=== PATIENT | male | born 1930 | race Caucasian/White ===

== ENCOUNTER 2016-12-30 12:39 | Inpatient (IN) ==
[2016-12-30] MEDS ORDERED: 0.9 % Sodium Chloride 500 ML IVC ONE (12:50)
--- NOTE | 2016-12-30 12:56 | Emergency Department Note ---
Disposition Clinical Impression: Community acquired pneumonia, ROBERT (acute kidney injury) Disposition: Admitted As Inpatient Condition: Fair Time of Disposition: 17:05 SOB HPI - General Chief Complaint: ED Shortness of Breath/Dyspnea Stated Complaint: shortness of breath Time Seen by Provider: 12/30/16 12:40 Source: patient, EMS Mode of arrival: EMS Limitations: no limitations Nursing Notes Reviewed: Yes Vital Signs Reviewed: Yes - History of Present Illness Patient presents to the ED with chief complaint shortness of breath. Patient states that he has been feeling short of breath over the last week. States that its worse whenever he is up and moving around. Feels like he cannot get a deep breath in. Has a remote history of lung cancer and is status post chemotherapy for the last year and a half. He states that he has felt hot like he has a low-grade fever. He has been coughing some but no productive cough. No chest pain. No other headaches, abdominal pain, nausea, vomiting, diarrhea, pain in his legs. He is unsure if he has COPD or not. Does state that he had a heart attack previously and this feels differently. No history of DVT or PE. - Related Data Home Medications Medication Instructions Recorded Confirmed Aspirin [Adult Low Dose Aspirin EC] 81 mg PO DAILY 09/22/15 12/30/16 Atenolol [Tenormin] 50 mg PO DAILY 09/22/15 12/30/16 Atorvastatin [Lipitor] 40 mg PO DAILY 09/22/15 12/30/16 Budesonide/Formoterol 80/4.5 2 puff IH BIDR 09/22/15 12/30/16 [Symbicort 80/4.5] Finasteride [Proscar] 5 mg PO DAILY 09/22/15 12/30/16 Folic Acid 1 mg PO DAILY 09/22/15 12/30/16 Losartan Potassium [Cozaar] 50 mg PO DAILY 09/22/15 12/30/16 Methotrexate [Otrexup] 6 tab PO QWEEK 09/22/15 12/30/16 Multivit-Min/FA/Vit K/Lycopene [Hm 1 each PO DAILY 09/22/15 12/30/16 Mens 50+ Advanced One Daily] PredniSONE 10 mg PO DAILY 09/22/15 12/30/16 Tamsulosin [Flomax] 0.4 mg PO DAILY 09/22/15 12/30/16 Calcium Carbonate/Vitamin D3 1 tab PO DAILY 12/30/16 12/30/16 [Calcium 500-Vit D3 600 Tablet] Cyanocobalamin (Vitamin B-12) 1,000 mcg PO DAILY 12/30/16 12/30/16 [Vitamin B12] Oxygen 3 l .ROUTE AD 12/30/16 12/30/16 Pregabalin [Lyrica] 50 mg PO BID 12/30/16 12/30/16 Previous Rx's Medication Instructions Recorded Acetaminophen [Tylenol] 650 mg PO Q6HR PRN #20 tablet 11/25/16 Allergies Allergy/AdvReac Type Severity Reaction Status Date / Time celecoxib [From Celebrex] Allergy Unknown See Verified 09/06/15 15:59 Comments Latex, Natural Rubber Allergy Unknown See Verified 09/06/15 15:59 Comments rofecoxib [From Vioxx] Allergy Unknown See Verified 09/06/15 15:59 Comments Sulfa (Sulfonamide Allergy Unknown Unknown Verified 09/22/15 15:11 Antibiotics) All systems ED: reviewed and negative except as stated. (somewhat limited) Constitutional: Reports: fever (subjective ) Cardiovascular: Reports: dyspnea on exertion, edema Respiratory: Reports: cough, dyspnea Past Medical History - Past Medical History Attestation: Yes The following information was validated with the patient. Source: patient Medical history: Reports: cancer, COPD, hypertension, other - Social History Smoking Status: Unknown if ever smoked Smokeless Tobacco Status: No Alcohol use: Reports: none Physical Exam - General Limitations: no limitations General appearance: alert, in no apparent distress - Head Head exam: atraumatic, normocephalic, normal inspection - Eye Eye exam: Present: normal appearance, PERRL, EOMI - ENT ENT exam: normal exam, normal oropharynx, mucous membranes moist - Neck Neck exam: Present: normal inspection, full ROM, trachea midline - Chest Chest inspection: Present: normal inspection, symmetric chest wall rise - Respiratory Respiratory exam: Present: other (Decreased breath sounds, although clear. No rales or rhonchi). Absent: normal lung sounds bilaterally, respiratory distress (Patient was hypoxic upon arrival with oxygen saturation of 88%) - Cardiovascular Cardiovascular exam: Present: regular rate, normal rhythm, normal heart sounds - Abdominal Exam Abdominal exam: Present: soft, Non-Tender. Absent: tenderness, distention, guarding, rebound, rigidity - Extremities Exam Extremities exam: Present: normal inspection, full ROM, pedal edema (2+ pitting bilaterally). Absent: tenderness - Neurological Exam Neurological exam: Present: alert, oriented X3 - Psychiatric Psychiatric exam: Present: normal affect, normal mood - Skin Skin exam: Present: warm, dry, intact, normal color Course Course Narrative: 86 -year-old male presenting with shortness of breath. Over the last week, but gradually increasing. States he feels like he cannot get a deep breath in. Not having any chest pain. Remote history of lung cancer, but is no longer receiving treatment for the last year and a half. - Reevaluation(s) Reevaluation #1: Claudia ZAIDI is back and shows he does potentially have pneumonia which is consistent with his clinical diagnosis. We were just informed that we did receive report prior to the patient being transported here that he had a fever prior to arrival. With this new information, we will draw a lactate level. I do not think that the patient would meet sepsis criteria as he is in no acute distress. However, we will order this, per protocol. Time: 16:11 Vital Signs Temperature 99.5 F 12/30/16 12:41 Pulse Rate 89 12/30/16 12:41 Respiratory Rate 20 12/30/16 12:41 Blood Pressure 111/81 12/30/16 12:41 O2 Sat by Pulse Oximetry 93 12/30/16 12:41 Temperature 99.5 F 12/30/16 12:41 Pulse Rate 74 12/30/16 17:02 Respiratory Rate 18 12/30/16 17:02 Blood Pressure 107/55 12/30/16 17:02 O2 Sat by Pulse Oximetry 95 12/30/16 17:02 Oxygen Delivery Oxygen Delivery Nasal Cannula Shortness of Breath/Dyspnea - Medical Records Medical records reviewed: Yes I reviewed the patient's medical records. - Lab Data Lab results reviewed: Yes I reviewed the patient's lab results. Result diagrams: 12/30/16 13:49 12/30/16 13:49 Lab Results 12/30/16 12/30/16 12/30/16 Range/Units 13:49 13:49 13:49 WBC 7.2 (4.3-11.1) K/mcL RBC 4.03 L (4.19-5.50) M/mcL Hgb 13.4 (12.9-16.9) g/dL Hct 41.4 (37.5-50.1) % MCV 102.7 H (83.0-100.0) fL MCH 33.3 (28.0-33.3) pg MCHC 32.4 (31.6-35.5) g/dL RDW 14.7 H (11.5-14.5) % Plt Count 100 L (140-400) K/mcL MPV 9.8 (9.4-12.4) fL Seg Neutrophils % 72.0 % Band Neutrophils % 18.0 H (0-4) % Lymphocytes % 8.0 % Monocytes % 2.0 % Neutrophils # 6.5 (1.6-8.9) K/mcL Lymphocytes # 0.6 (0.6-4.6) K/mcL Monocytes # 0.1 (0.0-1.3) K/mcL Platelet Estimate Normal (Normal) Immature Plt Fraction 2.9 (1.1-6.1) % Macrocytosis Present A (Not Present) PT 11.7 (9.4-12.1) Seconds INR 1.1 APTT 25.4 L (26.0-36.0) Seconds D-Dimer 2279 H (0-500) ng/mLFEU Sodium (136-145) mEq/L Potassium (3.5-4.5) mEq/L Chloride (98-109) mEq/L Carbon Dioxide (19-29) mEq/L BUN (8-26) mg/dL Creatinine (0.72-1.25) mg/dL Est GFR ( Amer) (> 60) Est GFR (Non-Af Amer) (> 60) BUN/Creatinine Ratio (6-26) Glucose (70-99) mg/dL Calculated Osmolality (280-300) Lactic Acid (0.5-2.2) mmol/L Calcium (8.6-10.8) mg/dL Troponin I (0-0.03) ng/mL B-Natriuretic Peptide (0-100) pg/mL 12/30/16 12/30/16 12/30/16 Range/Units 13:49 13:49 13:49 WBC (4.3-11.1) K/mcL RBC (4.19-5.50) M/mcL Hgb (12.9-16.9) g/dL Hct (37.5-50.1) % MCV (83.0-100.0) fL MCH (28.0-33.3) pg MCHC (31.6-35.5) g/dL RDW (11.5-14.5) % Plt Count (140-400) K/mcL MPV (9.4-12.4) fL Seg Neutrophils % % Band Neutrophils % (0-4) % Lymphocytes % % Monocytes % % Neutrophils # (1.6-8.9) K/mcL Lymphocytes # (0.6-4.6) K/mcL Monocytes # (0.0-1.3) K/mcL Platelet Estimate (Normal) Immature Plt Fraction (1.1-6.1) % Macrocytosis (Not Present) PT (9.4-12.1) Seconds INR APTT (26.0-36.0) Seconds D-Dimer (0-500) ng/mLFEU Sodium 140 (136-145) mEq/L Potassium 5.0 H (3.5-4.5) mEq/L Chloride 109 (98-109) mEq/L Carbon Dioxide 24 (19-29) mEq/L BUN 36 H (8-26) mg/dL Creatinine 1.28 H (0.72-1.25) mg/dL Est GFR ( Amer) > 60 (> 60) Est GFR (Non-Af Amer) 53 L (> 60) BUN/Creatinine Ratio 28 H (6-26) Glucose 115 H (70-99) mg/dL Calculated Osmolality 299 (280-300) Lactic Acid (0.5-2.2) mmol/L Calcium 8.6 (8.6-10.8) mg/dL Troponin I 0.03 (0-0.03) ng/mL B-Natriuretic Peptide 231 H (0-100) pg/mL 12/30/16 Range/Units 16:58 WBC (4.3-11.1) K/mcL RBC (4.19-5.50) M/mcL Hgb (12.9-16.9) g/dL Hct (37.5-50.1) % MCV (83.0-100.0) fL MCH (28.0-33.3) pg MCHC (31.6-35.5) g/dL RDW (11.5-14.5) % Plt Count (140-400) K/mcL MPV (9.4-12.4) fL Seg Neutrophils % % Band Neutrophils % (0-4) % Lymphocytes % % Monocytes % % Neutrophils # (1.6-8.9) K/mcL Lymphocytes # (0.6-4.6) K/mcL Monocytes # (0.0-1.3) K/mcL Platelet Estimate (Normal) Immature Plt Fraction (1.1-6.1) % Macrocytosis (Not Present) PT (9.4-12.1) Seconds INR APTT (26.0-36.0) Seconds D-Dimer (0-500) ng/mLFEU Sodium (136-145) mEq/L Potassium (3.5-4.5) mEq/L Chloride (98-109) mEq/L Carbon Dioxide (19-29) mEq/L BUN (8-26) mg/dL Creatinine (0.72-1.25) mg/dL Est GFR ( Amer) (> 60) Est GFR (Non-Af Amer) (> 60) BUN/Creatinine Ratio (6-26) Glucose (70-99) mg/dL Calculated Osmolality (280-300) Lactic Acid 1.1 (0.5-2.2) mmol/L Calcium (8.6-10.8) mg/dL Troponin I (0-0.03) ng/mL B-Natriuretic Peptide (0-100) pg/mL - Radiology Data Radiology results reviewed: Yes I reviewed the patient's radiology results. - EKG Data EKG attestation: Yes I reviewed and interpreted this EKG. EKG results narrative: Sinus rhythm, rate 86, W[place] interval 160, QRS 92, QTC 372, normal axis, nonspecific changes inferiorly Attestation Statement - Attestation Attestation: Patient was seen with resident physician. I reviewed the history, physical, assessment and plan, and agree with the findings. I also personally evaluated this patient and had [id number] time with this patient. A [id number] male presents to the emergency department with 1 week history of worsening shortness of breath. Patient is on home O2 as needed, states he has COPD and history of lung cancer but is not being consistently treated for either at the moment. States he has had a nonproductive cough which is getting progressively worse for the last week and now he feels just wiped out with decreased energy and difficulty breathing. Denies chest pain. Denies nausea vomiting or diarrhea. On examination vital signs mild temperature heart regular rhythm and rate. Lungs have some crackles throughout. Abdomen soft and nontender. Extremities unremarkable. Neurologically intact. EKG shows no acute ischemic changes. We will do workup for cardiac and pulmonary etiologies. And we will treat accordingly. Patient remained hemodynamically stable through stay in emergency department. Workup revealed pneumonia. Initially chest x-ray was negative, but d-dimer was positive prompting a CT scan of the chest. The CT scan was definitive for pneumonia. Patient was started on Levaquin. Hospitalist was notified as the need for admission and IV antibiotic therapy. Agree with resident physician assessment and plan.
[2016-12-30 14:07] LABS: Mean Corpuscular HGB Conc 32.4 g/dL (31.6-35.5); Mean Corpuscular Hemoglobin 33.3 pg (28.0-33.3); Mean Corpuscular Volume 102.7 fL (83.0-100.0); Red Cell Distribution Width 14.7 % (11.5-14.5)
[2016-12-30 14:08] LABS: Hematocrit 41.4 % (37.5-50.1); Hemoglobin 13.4 g/dL (12.9-16.9); Immature Platelets 2.9 % (1.1-6.1); Mean Platelet Volume 9.8 fL (9.4-12.4); Platelet Count 100 K/mcL (140-400); Red Blood Count 4.03 M/mcL (4.19-5.50)
[2016-12-30 14:13] LABS: INR 1.1; Prothrombin Time 11.7 Seconds (9.4-12.1)
[2016-12-30 14:16] LABS: Activated Partial Thrombo Time 25.4 Seconds (26.0-36.0)
[2016-12-30 14:21] LABS: BUN/Creatinine Ratio 28 (6-26); Blood Urea Nitrogen 36 mg/dL (8-26); Calcium 8.6 mg/dL (8.6-10.8); Carbon Dioxide 24 mEq/L (19-29); Chloride 109 mEq/L (98-109); Glucose 115 mg/dL (70-99); Osmolality,Calculated 299 (280-300); Sodium 140 mEq/L (136-145); eGFR For African Americans > 60 (> 60); eGFR For Non-African Americans 53 (> 60)
[2016-12-30 14:54] LABS: Lymphocytes # 0.6 K/mcL (0.6-4.6); Monocytes # 0.1 K/mcL (0.0-1.3); Neutrophils # 6.5 K/mcL (1.6-8.9)
[2016-12-30 14:55] LABS: Platelet Estimate Normal (Normal)
[2016-12-30 14:56] LABS: Macrocytosis Present (Not Present)
[2016-12-30] MEDS ORDERED: 0.9 % Sodium Chloride 1,000 ML IVC ONE (15:05)
[2016-12-30] MEDS ORDERED: Levofloxacin 750 MG/150 ML 750 MG/150 ML BAG IVPB ONE (16:12)
--- NOTE | 2016-12-30 18:19 | Internal Med History&Physical ---
Date of Encounter: 12/30/16 Time of Encounter: 18:14 Assessment and Plan (1) Community acquired pneumonia Current visit: Yes Status: Acute ct chest shows left LL pneumonia. clinically sob, no productive sputum or fever. recently had pneumonia lab work showed elevated d - dimer, CTA was done , neg for PE. will treat as CAP, start ceftriaxone and azithro. sputum for gram stain and cx. 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 He did not want whole-brain radiation. Completed last dose of carbo Taxol the first week in . Clinically appears stable without recurrence as noted in last oncology note -MRI of the brain, showed resolution of metastatic lesion. 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 (5) Emphysema lung Current visit: Yes Status: Acute We will continue duo nebs every 4 hour when necessary. Continue oxygen at 2 L to maintain saturation above 90%. Will continue the Symbicort and other medications. Currently not in COPD exacerbation. Qualifiers: Emphysema type: unspecified Qualified Code(s): J43.9 - Emphysema, unspecified (6) Rheumatoid arthritis Current visit: Yes Status: Acute he sees DR. smith and is on methotrexate and prednisone. Qualifiers: Rheumatoid arthritis location: hand Rheumatoid factor presence: with rheumatoid factor Laterality: unspecified laterality Qualified Code(s): M05.749 - Rheumatoid arthritis with rheumatoid factor of unspecified hand without organ or systems involvement Internal Medicine - H&P: HPI Chief complaint: sob Admitted From: Home Plans for Post Hospital Care: Home History of present illness: Mr. 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 The patient deferred whole-brain radiation therapy. He underwent treatments with weekly carbo Taxol, which he tolerated well, was then treated with q.3 weekly dosing. He followed with Dr. Avery at the [facility] and is currently in remission. He presented today at ED with complaints of shortness of breath for the last 1 week. He denies any chest pain, no fever at home, reports that he has dry cough. He does have a history of COPD, only on oxygen as required at home. 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 He lives with his , reports that his had pneumonia a week ago and was admitted to [facility] and is currently recovering. He denies any nausea vomiting, abdominal pain or diarrhea. he denies smoking. Past Med Surg Social Fam HX - Past Medical History Medical history: cancer, COPD, hypertension, other - Social History Smoking Status: Former smoker Smokeless Tobacco Status: No Alcohol use: none Drug use: none - Family History Father Cause of : [place] Hx Family Cardiac Disorders: Yes Brother Hx Family Cardiac Disorders: Yes ([place]) Mother Cause of : CVA Internal Medicine - H&P: Meds Aspirin [Adult Low Dose Aspirin EC] 81 mg PO DAILY 09/22/15 [History] Atenolol [Tenormin] 50 mg PO DAILY 09/22/15 [History] Atorvastatin [Lipitor] 40 mg PO DAILY 09/22/15 [History] Budesonide/Formoterol 80/4.5 [Symbicort 80/4.5] 2 puff IH BIDR 09/22/15 [ History] Finasteride [Proscar] 5 mg PO DAILY 09/22/15 [History] Folic Acid 1 mg PO DAILY 09/22/15 [History] Losartan Potassium [Cozaar] 50 mg PO DAILY 09/22/15 [History] Methotrexate [Otrexup] 6 tab PO QWEEK 09/22/15 [History] Multivit-Min/FA/Vit K/Lycopene [Hm Mens 50+ Advanced One Daily] 1 each PO DAILY 09/22/15 [History] PredniSONE 10 mg PO DAILY 09/22/15 [History] Tamsulosin [Flomax] 0.4 mg PO DAILY 09/22/15 [History] Acetaminophen [Tylenol] 650 mg PO Q6HR PRN #20 tablet 11/25/16 [Rx] Calcium Carbonate/Vitamin D3 [Calcium 500-Vit D3 600 Tablet] 1 tab PO DAILY 02/10 [History] Cyanocobalamin (Vitamin B-12) [Vitamin B12] 1,000 mcg PO DAILY 12/30/16 [History ] Oxygen 3 l .ROUTE AD 12/30/16 [History] Pregabalin [Lyrica] 50 mg PO BID 12/30/16 [History] Allergies celecoxib [From Celebrex] Allergy (Unknown, Verified 09/06/15 15:59) See Comments reaction unknown Latex, Natural Rubber Allergy (Unknown, Verified 09/06/15 15:59) See Comments reaction unknown rofecoxib [From Vioxx] Allergy (Unknown, Verified 09/06/15 15:59) See Comments reaction unknown Sulfa (Sulfonamide Antibiotics) Allergy (Unknown, Verified 09/22/15 15:11) Unknown All Systems PM: A 10-system review of systems was performed and is negative for pertinent findings except as documented above in the HPI. - Constitutional Constitutional: no chills, no fever(s), no night sweats - EENT Eyes: no change in vision, no discharge, no pain, no photophobia Ears: no ear discharge, no ear pain, no tinnitus Nose, mouth and throat: no dysphagia, no nasal discharge, no neck pain, no sore throat - Cardiovascular Cardiovascular ROS IM: dyspnea - Respiratory Respiratory: cough, dyspnea - Gastrointestinal Gastrointestinal: no abdominal pain, no diarrhea, no hematemesis, no hematochezia, no melena, no nausea, no vomiting - Musculoskeletal Musculoskeletal ROS IM: no numbness, no tingling - Integumentary Integumentary IM: no rash, no unusual bruising - Neurological Neurological ROS: numbness, paresthesias, no confusion, no convulsions, no focal weakness, no tingling, no tremor(s) - Constitutional Vitals: Temp Pulse Resp BP Pulse Ox 97.4 F L 74 18 103/61 97 12/30/16 17:58 12/30/16 17:58 12/30/16 17:58 12/30/16 17:58 12/30/16 17:58 General appearance: Present: A&O X 3, no acute distress Exam: oral mucosa- moist Neck supple. Chest bilateral clear, no added sounds. CVS S1-S2, no murmurs rubs or gallops. Abdomen soft, nontender, bowel sounds are present. Extremities no edema, dry 3 x 4 wound at the left calf which appears dry and resolvind, non tender. neuro- no focal defecits Internal Med - H&P Results - Labs CBC & Chem 7: 12/30/16 13:49 12/30/16 13:49
[2016-12-30] MEDS ORDERED: Naloxone 0.4 MG/ML INJ IVP PRN (18:30)
[2016-12-30] MEDS: Pregabalin 50 MG CAPSULE PO SCH (22:21)
[2016-12-30] MEDS: Budesonide/Formoterol 80/4.5 MDI IH SCH (23:40)
[2016-12-31 01:33] LABS: Bilirubin,Urine Negative (Negative); Blood,Urine Trace (Negative); Clarity,Urine Clear (Clear); Color,Urine Yellow (Yellow); Glucose,Urine (UA) Normal (Normal); Ketones,Urine Negative (Negative); Leukocyte Esterase,Urine Negative (Negative); Nitrite,Urine Negative (Negative); PH,Urine 5.5 pH Units (5.0-8.0); Protein,Urine 30 mg/dL (Neg-Trace); Specific Gravity,Urine > 1.030 (1.010-1.025); Urobilinogen,Urine Normal (Normal)
[2016-12-31 01:35] LABS: Bacteria,Urine None Seen per hpf (None-Few); Hyaline Casts,Urine None Seen per lpf (None-Few); Squamous Epithelial Cell,Urine Moderate per lpf (None-Few); WBC,Urine 0-3 per hpf (0-3)
[2016-12-31] MEDS: *HR* Heparin 5,000 UNIT/ML VIAL SQ SCH ×2 (05:43→17:18)
[2016-12-31 06:13] LABS: Basophils % 0.5 %; Hemoglobin 13.1 g/dL (12.9-16.9)
[2016-12-31 06:15] LABS: Eosinophils % 0.1 %; Hematocrit 41.3 % (37.5-50.1); Immature Granulocytes % 3.7 % (0-4); Immature Platelets 4.2 % (1.1-6.1); Lymphocytes # 0.7 K/mcL (0.6-4.6); Lymphocytes % 9.2 %; Mean Corpuscular HGB Conc 31.7 g/dL (31.6-35.5); Mean Corpuscular Hemoglobin 32.8 pg (28.0-33.3); Mean Corpuscular Volume 103.5 fL (83.0-100.0); Mean Platelet Volume 9.7 fL (9.4-12.4); Monocytes # 0.6 K/mcL (0.0-1.3); Monocytes % 8.1 %; Neutrophils # 5.9 K/mcL (1.6-8.9); Red Blood Count 3.99 M/mcL (4.19-5.50); Red Cell Distribution Width 14.7 % (11.5-14.5); Segmented Neutrophils % 78.4 %
[2016-12-31 06:17] LABS: Platelet Count 91 K/mcL (140-400)
[2016-12-31 06:21] LABS: BUN/Creatinine Ratio 28 (6-26); Blood Urea Nitrogen 31 mg/dL (8-26); Calcium 8.6 mg/dL (8.6-10.8); Carbon Dioxide 26 mEq/L (19-29); Chloride 108 mEq/L (98-109); Glucose 90 mg/dL (70-99); Osmolality,Calculated 296 (280-300); Potassium 5.1 mEq/L (3.5-4.5); Sodium 140 mEq/L (136-145); eGFR For African Americans > 60 (> 60); eGFR For Non-African Americans > 60 (> 60)
[2016-12-31 06:46] LABS: Platelet Estimate Decreased (Normal); Reactive Lymphocytes Present (Not Present)
[2016-12-31] MEDS: Cholecalciferol (D-3) 1,000 UNIT TABLET PO SCH (09:28)
[2016-12-31] MEDS: Folic Acid 1 MG TABLET PO SCH (09:29)
[2016-12-31] MEDS: Pregabalin 50 MG CAPSULE PO SCH ×2 (09:29→21:11)
[2016-12-31] MEDS: Finasteride 5 MG TABLET PO SCH (09:29)
[2016-12-31] MEDS: Aspirin Enteric Coated 81 MG Tablet PO SCH (09:29)
[2016-12-31] MEDS: predniSONE 10 MG TABLET PO SCH (09:29)
[2016-12-31] MEDS: Budesonide/Formoterol 80/4.5 MDI IH SCH ×2 (10:35→20:46)
--- NOTE | 2016-12-31 12:58 | Internal Med Progress Note ---
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 completed last dose of Carbo Taxol the first week of May 2016 Clinically appears stable without recurrence as noted in last oncology note MRI brain showed resolution of metastatic lesion Qualifiers: Laterality: right Lung location: upper lobe of lung Qualified Code(s): C34.11 - Malignant neoplasm of upper lobe, right bronchus or lung (3) Neuropathy Current Visit: No Status: Chronic Assessment and plan: continue home medications (4) ROBERT (acute kidney injury) Current Visit: Yes Status: Resolved Assessment and plan: Resolved continue to monitor renal function (5) Emphysema lung Current Visit: Yes Status: Chronic Assessment and plan: continue bronchodilator support O2 supplementation Monitor O2 sat continue home meds (symbicort) Qualifiers: Emphysema type: unspecified Qualified Code(s): J43.9 - Emphysema, unspecified (6) Rheumatoid arthritis Current Visit: Yes Status: Acute Assessment and plan: continue home medications Qualifiers: Rheumatoid arthritis location: hand Rheumatoid factor presence: with rheumatoid factor Laterality: unspecified laterality Qualified Code(s): M05.749 - Rheumatoid arthritis with rheumatoid factor of unspecified hand without organ or systems involvement (7) DVT prophylaxis Current Visit: Yes Status: Acute Assessment and plan: Heparin SQ - Subjective Interval history: Patient seen and examined. resting in chair and reports of feeling better compared to the previous day. No discomfort reported at this time. - Constitutional Vitals: Temp Pulse Resp BP Pulse Ox 97.6 F 97 18 108/64 92 12/31/16 11:58 12/31/16 11:58 12/31/16 11:58 12/31/16 11:58 12/31/16 11:58 General appearance: Present: A&O X 3, no acute distress - Head Head exam: Present: atraumatic, normocephalic - Eye Eye exam: Present: normal appearance, conjuntiva pink, sclera anicteric - Respiratory Respiratory exam: Present: decreased breath sounds. Absent: respiratory distress, wheezes Additional comments: coarse breath sounds on bilateral bases - Cardiovascular Cardiovascular exam: Present: RRR, +S1, +S2. Absent: diastolic murmur, gallop, rubs, systolic murmur - GI/Abdominal GI/Abdominal exam: Present: normal bowel sounds, soft, no peritoneal signs. Absent: distended, tenderness - Extremities Exam Extremities exam: Present: warm, radial pulses palpable and symetrical. Absent : calf tenderness, cyanotic, pedal edema - Neurological Exam Neurological exam: Present: alert, oriented X3 - Psychiatric Psychiatric exam: Present: normal affect, normal mood Internal Medicine: Result - Labs CBC & Chem 7: 12/31/16 05:26 12/31/16 05:26 Labs: Short CBC 12/31/16 Range/Units 05:26 WBC 7.5 (4.3-11.1) K/mcL Hgb 13.1 (12.9-16.9) g/dL Hct 41.3 (37.5-50.1) % Plt Count 91 L (140-400) K/mcL Neutrophils # 5.9 (1.6-8.9) K/mcL BMP 12/31/16 05:26 Sodium 140 Potassium 5.1 H Chloride 108 Carbon Dioxide 26 BUN 31 H Creatinine 1.10 Glucose 90 Calcium 8.6 Urine 12/31/16 Range/Units 01:20 Urine Color Yellow (Yellow) Urine Clarity Clear (Clear) Urine pH 5.5 (5.0-8.0) pH Units Ur Specific [place] > 1.030 H (1.010-1.025) Urine Protein 30 H (Neg-Trace) mg/dL Urine Glucose (UA) Normal (Normal) mg/dL - ABG Interpretation ABG results: PT/INR, D-dimer PT 11.7 Seconds (9.4-12.1) 12/30/16 13:49 D-Dimer 2279 ng/mLFEU (0-500) H 12/30/16 13:49 Consult Discharge Plan - Plan Referrals: Shreya Guzmán MD [Primary Care Provider] -
--- NOTE | 2016-12-31 17:59 | Electrocardiograph Report ---
[place] [id number] Test Date: 2016-12-30 Pat Name: Pineda Ball Department: 102 Room: 2A Gender: M Ceo Ziff Davis: Eddi : 1930 Requested By: Aaron Bydr Order Number: [id number] Reading MD: Regina Lambert Measurements Intervals [place] Rate: 86 P: 50 CT: 160 QRS: 8 QRSD: 92 T: -16 QT: 328 QTc: 372 Interpretive Statements SINUS RHYTHM LOW QRS VOLTAGE IN EXTREMITY LEADS ARTIFACT Electronically Signed On 12-31-2016 17:57:53 EDT by Regina Lambert
[2017-01-01 05:01] LABS: Hemoglobin 12.7 g/dL (12.9-16.9)
[2017-01-01 05:03] LABS: Hematocrit 39.4 % (37.5-50.1); Immature Platelets 2.8 % (1.1-6.1); Mean Corpuscular HGB Conc 32.2 g/dL (31.6-35.5); Mean Corpuscular Hemoglobin 33.5 pg (28.0-33.3); Mean Platelet Volume 10.4 fL (9.4-12.4); Red Blood Count 3.79 M/mcL (4.19-5.50); Red Cell Distribution Width 14.7 % (11.5-14.5)
[2017-01-01 05:08] LABS: Platelet Count 97 K/mcL (140-400)
[2017-01-01 05:24] LABS: Monocytes # 0.8 K/mcL (0.0-1.3); Neutrophils # 4.1 K/mcL (1.6-8.9)
[2017-01-01 05:25] LABS: Platelet Estimate Decreased (Normal); Polychromasia 1+ (Not Present)
[2017-01-01 05:28] LABS: BUN/Creatinine Ratio 29 (6-26); Blood Urea Nitrogen 35 mg/dL (8-26); Calcium 8.6 mg/dL (8.6-10.8); Carbon Dioxide 24 mEq/L (19-29); Chloride 109 mEq/L (98-109); Glucose 107 mg/dL (70-99); Osmolality,Calculated 298 (280-300); Potassium 5.2 mEq/L (3.5-4.5); Sodium 140 mEq/L (136-145); eGFR For African Americans > 60 (> 60); eGFR For Non-African Americans 58 (> 60)
[2017-01-01 05:29] LABS: Magnesium 2.5 mg/dL (1.6-2.6)
[2017-01-01] MEDS: *HR* Heparin 5,000 UNIT/ML VIAL SQ SCH ×2 (06:23→17:43)
[2017-01-01] MEDS: predniSONE 10 MG TABLET PO SCH (09:53)
[2017-01-01] MEDS: Folic Acid 1 MG TABLET PO SCH (09:53)
[2017-01-01] MEDS: Finasteride 5 MG TABLET PO SCH (09:54)
[2017-01-01] MEDS: Cholecalciferol (D-3) 1,000 UNIT TABLET PO SCH (09:54)
[2017-01-01] MEDS: Vancomycin 1,250 MG in D5% in Water 250 ML IVPB SCH (09:54)
[2017-01-01] MEDS: Piperacillin/Tazobactam 3.375 GM in D5% in Water (Mini-Bag+) 100 ML IVPB SCH ×3 (09:54→23:28)
[2017-01-01] MEDS: Aspirin Enteric Coated 81 MG Tablet PO SCH (09:54)
[2017-01-01] MEDS: Pregabalin 50 MG CAPSULE PO SCH ×2 (09:54→20:03)
[2017-01-01] MEDS: Acetaminophen 325 MG TABLET PO PRN (10:07)
[2017-01-01] MEDS: Budesonide/Formoterol 80/4.5 MDI IH SCH ×3 (10:41→20:55)
--- NOTE | 2017-01-01 13:05 | Internal Med Progress Note ---
Date of Encounter: 01/01/17 Time of Encounter: 11:26 - Assessment and plan (1) Community acquired pneumonia Current Visit: Yes Status: Acute Assessment and plan: Left lower lobe pneumonia Given worsening of Bandemia, will broaden abx coverage and treat as HCAP, given recent history of chemotherapy Will start Vancomycin and Zosyn Pharmacy to renally dose medications and to monitor vancomycin trough continue O2 supplementation monitor O2 saturation, O2 sat goal: 89-92% If noted to have increase in O2 demand, will repeat CT chest. 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 completed last dose of Carbo Taxol the first week of May 2016 Clinically appears stable without recurrence as noted in last oncology note MRI brain showed resolution of metastatic lesion Qualifiers: Laterality: right Lung location: upper lobe of lung Qualified Code(s): C34.11 - Malignant neoplasm of upper lobe, right bronchus or lung (3) Neuropathy Current Visit: No Status: Chronic Assessment and plan: continue home medications (4) ROBERT (acute kidney injury) Current Visit: Yes Status: Resolved Assessment and plan: Resolved continue to monitor renal function (5) Emphysema lung Current Visit: Yes Status: Chronic Assessment and plan: continue bronchodilator support O2 supplementation Monitor O2 sat continue home meds (symbicort) Qualifiers: Emphysema type: unspecified Qualified Code(s): J43.9 - Emphysema, unspecified (6) Rheumatoid arthritis Current Visit: Yes Status: Acute Assessment and plan: continue home medications Qualifiers: Rheumatoid arthritis location: hand Rheumatoid factor presence: with rheumatoid factor Laterality: unspecified laterality Qualified Code(s): M05.749 - Rheumatoid arthritis with rheumatoid factor of unspecified hand without organ or systems involvement (7) DVT prophylaxis Current Visit: Yes Status: Acute Assessment and plan: Heparin SQ - Subjective Interval history: Patient seen and examined. resting in chair and reports of feeling weak. reports of being on 3L NC at home and has been requiring around 3-4L overnight. States he has difficulty with ambulation. - Constitutional Vitals: Temp Pulse Resp BP Pulse Ox 98.5 F 76 17 104/61 90 01/01/17 11:13 01/01/17 11:13 01/01/17 11:13 01/01/17 11:13 01/01/17 11:13 General appearance: Present: A&O X 3, no acute distress - Head Head exam: Present: atraumatic, normocephalic - Eye Eye exam: Present: normal appearance, conjuntiva pink, sclera anicteric - Respiratory Respiratory exam: Absent: accessory muscle use, rales, rhonchi, wheezes Additional comments: coarse breath sounds bilaterally - Cardiovascular Cardiovascular exam: Present: RRR, +S1, +S2. Absent: diastolic murmur, gallop, rubs, systolic murmur - GI/Abdominal GI/Abdominal exam: Present: normal bowel sounds, soft, no peritoneal signs. Absent: distended, tenderness - Extremities Exam Extremities exam: Present: pedal edema, warm, radial pulses palpable and symetrical. Absent: calf tenderness - Neurological Exam Neurological exam: Present: alert, oriented X3 - Psychiatric Psychiatric exam: Present: normal affect, normal mood Internal Medicine: Result - Labs CBC & Chem 7: 01/01/17 04:44 01/01/17 04:44 Labs: Short CBC 01/01/17 Range/Units 04:44 WBC 6.0 (4.3-11.1) K/mcL Hgb 12.7 L (12.9-16.9) g/dL Hct 39.4 (37.5-50.1) % Plt Count 97 L (140-400) K/mcL Neutrophils # 4.1 (1.6-8.9) K/mcL BMP 01/01/17 04:44 Sodium 140 Potassium 5.2 H Chloride 109 Carbon Dioxide 24 BUN 35 H Creatinine 1.19 Glucose 107 H Calcium 8.6 - ABG Interpretation ABG results: PT/INR, D-dimer PT 11.7 Seconds (9.4-12.1) 12/30/16 13:49 D-Dimer 2279 ng/mLFEU (0-500) H 12/30/16 13:49 Consult Discharge Plan - Plan Referrals: Shreya Guzmán MD [Primary Care Provider] -
[2017-01-01] MEDS ORDERED: Levofloxacin 750 MG/150 ML 750 MG/150 ML BAG IVPB SCH (17:00)
[2017-01-02] MEDS: *HR* Heparin 5,000 UNIT/ML VIAL SQ SCH ×2 (05:29→16:58)
[2017-01-02 05:56] LABS: Mean Corpuscular HGB Conc 31.3 g/dL (31.6-35.5); Monocytes % 10.4 %; Red Cell Distribution Width 14.6 % (11.5-14.5)
[2017-01-02 05:58] LABS: Basophils % 0.5 %; Eosinophils # 0.1 K/mcL (0.0-0.6); Eosinophils % 0.8 %; Hematocrit 39.9 % (37.5-50.1); Hemoglobin 12.5 g/dL (12.9-16.9); Immature Granulocytes % 4.1 % (0-4); Immature Platelets 4.8 % (1.1-6.1); Lymphocytes # 1.6 K/mcL (0.6-4.6); Lymphocytes % 20.9 %; Mean Corpuscular Hemoglobin 33.2 pg (28.0-33.3); Mean Corpuscular Volume 105.8 fL (83.0-100.0); Mean Platelet Volume 10.4 fL (9.4-12.4); Monocytes # 0.8 K/mcL (0.0-1.3); Neutrophils # 4.8 K/mcL (1.6-8.9); Platelet Count 101 K/mcL (140-400); Red Blood Count 3.77 M/mcL (4.19-5.50); Segmented Neutrophils % 63.3 %
[2017-01-02 06:06] LABS: BUN/Creatinine Ratio 29 (6-26); Blood Urea Nitrogen 36 mg/dL (8-26); Calcium 8.6 mg/dL (8.6-10.8); Carbon Dioxide 28 mEq/L (19-29); Chloride 106 mEq/L (98-109); Glucose 109 mg/dL (70-99); Osmolality,Calculated 299 (280-300); Phosphorous 3.3 mg/dL (2.3-4.7); Potassium 4.5 mEq/L (3.5-4.5); Sodium 140 mEq/L (136-145); eGFR For African Americans > 60 (> 60); eGFR For Non-African Americans 56 (> 60)
[2017-01-02 06:21] LABS: Platelet Estimate Slight Decrease (Normal); Reactive Lymphocytes Present (Not Present)
[2017-01-02] MEDS: Budesonide/Formoterol 80/4.5 MDI IH SCH ×2 (07:38→20:08)
[2017-01-02] MEDS: Finasteride 5 MG TABLET PO SCH (09:17)
[2017-01-02] MEDS: predniSONE 10 MG TABLET PO SCH (09:17)
[2017-01-02] MEDS: Aspirin Enteric Coated 81 MG Tablet PO SCH (09:17)
[2017-01-02] MEDS: Cholecalciferol (D-3) 1,000 UNIT TABLET PO SCH (09:17)
[2017-01-02] MEDS: Piperacillin/Tazobactam 3.375 GM in D5% in Water (Mini-Bag+) 100 ML IVPB SCH ×2 (09:18→15:37)
[2017-01-02] MEDS: Folic Acid 1 MG TABLET PO SCH (09:18)
[2017-01-02] MEDS: Pregabalin 50 MG CAPSULE PO SCH ×2 (09:18→21:39)
[2017-01-02] MEDS: Vancomycin 1,250 MG in D5% in Water 250 ML IVPB SCH (09:34)
[2017-01-02] MEDS: Acetaminophen 325 MG TABLET PO PRN (09:34)
--- NOTE | 2017-01-02 16:33 | Internal Med Progress Note ---
Date of Encounter: 01/02/17 Time of Encounter: 12:25 - Assessment and plan (1) Community acquired pneumonia Current Visit: Yes Status: Acute Assessment and plan: Left lower lobe pneumonia Given worsening of Bandemia, on borad coverage and treat as HCAP, given recent history of chemotherapy. continue with Vancomycin and Zosyn Pharmacy to renally dose medications and to monitor vancomycin trough continue O2 supplementation monitor O2 saturation, O2 sat goal: 89-92% follow cultures. (2) DVT prophylaxis Current Visit: Yes Status: Acute Assessment and plan: Heparin SQ (3) Rheumatoid arthritis Current Visit: Yes Status: Acute Assessment and plan: continue home medications Qualifiers: Rheumatoid arthritis location: hand Rheumatoid factor presence: with rheumatoid factor Laterality: unspecified laterality Qualified Code(s): M05.749 - Rheumatoid arthritis with rheumatoid factor of unspecified hand without organ or systems involvement (4) Emphysema lung Current Visit: Yes Status: Chronic Assessment and plan: continue bronchodilator support O2 supplementation Monitor O2 sat continue home meds (symbicort) Qualifiers: Emphysema type: unspecified Qualified Code(s): J43.9 - Emphysema, unspecified (5) ROBERT (acute kidney injury) Current Visit: Yes Status: Resolved Assessment and plan: Resolved continue to monitor renal function (6) Lung cancer Current Visit: No Status: Chronic Assessment and plan: 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 completed last dose of Carbo Taxol the first week of May 2016 Clinically appears stable without recurrence as noted in last oncology note MRI brain showed resolution of metastatic lesion Qualifiers: Laterality: right Lung location: upper lobe of lung Qualified Code(s): C34.11 - Malignant neoplasm of upper lobe, right bronchus or lung - Subjective Interval history: still short of breath, fells "no change" - Constitutional Vitals: Temp Pulse Resp BP Pulse Ox 97.4 F L 83 18 126/62 91 01/02/17 07:05 01/02/17 07:05 01/02/17 07:05 01/02/17 07:05 01/02/17 07:05 General appearance: Present: A&O X 3, no acute distress - Head Head exam: Present: atraumatic, normocephalic - Eye Eye exam: Present: PERRL, conjuntiva pink, sclera anicteric Pupils: Present: PERRL - Neck Neck exam general surgery: Present: supple, trachea midline. Absent: lymphadenopathy - Respiratory Respiratory exam: Present: decreased breath sounds. Absent: accessory muscle use, rales, rhonchi, wheezes - Cardiovascular Cardiovascular exam: Present: RRR, +S1, +S2. Absent: diastolic murmur, gallop, rubs, systolic murmur - GI/Abdominal GI/Abdominal exam: Present: normal bowel sounds, soft, no peritoneal signs. Absent: distended, tenderness - Extremities Exam Extremities exam: Present: warm, radial pulses palpable and symetrical. Absent : calf tenderness, cyanotic, pedal edema - Neurological Exam Neurological exam: Present: CN II-XII intact, oriented X3, no focal deficits. Absent: pronater drift, facial droop, speech deficit - Skin Skin exam: Present: dry, intact Internal Medicine: Result - Labs CBC & Chem 7: 01/02/17 04:56 01/02/17 04:56 Labs: Short CBC 01/02/17 Range/Units 04:56 WBC 7.6 (4.3-11.1) K/mcL Hgb 12.5 L (12.9-16.9) g/dL Hct 39.9 (37.5-50.1) % Plt Count 101 L (140-400) K/mcL Neutrophils # 4.8 (1.6-8.9) K/mcL BMP 01/02/17 04:56 Sodium 140 Potassium 4.5 Chloride 106 Carbon Dioxide 28 BUN 36 H Creatinine 1.23 Glucose 109 H Calcium 8.6 - ABG Interpretation ABG results: PT/INR, D-dimer PT 11.7 Seconds (9.4-12.1) 12/30/16 13:49 D-Dimer 2279 ng/mLFEU (0-500) H 12/30/16 13:49 Consult Discharge Plan - Plan Referrals: Shreya Guzmán MD [Primary Care Provider] - 01/08/17 1:45 pm (Please follow up as schedule...)
[2017-01-03] MEDS: Piperacillin/Tazobactam 3.375 GM in D5% in Water (Mini-Bag+) 100 ML IVPB SCH ×3 (00:34→17:28)
[2017-01-03] MEDS: *HR* Heparin 5,000 UNIT/ML VIAL SQ SCH ×2 (05:34→17:25)
[2017-01-03 06:38] LABS: Basophils # 0.1 K/mcL (0.0-0.2); Basophils % 0.8 %; Eosinophils # 0.1 K/mcL (0.0-0.6); Eosinophils % 0.9 %; Hematocrit 44.1 % (37.5-50.1); Hemoglobin 14.1 g/dL (12.9-16.9); Immature Granulocytes % 3.8 % (0-4); Lymphocytes % 19.8 %; Mean Corpuscular Hemoglobin 33.5 pg (28.0-33.3); Mean Corpuscular Volume 104.8 fL (83.0-100.0); Mean Platelet Volume 10.2 fL (9.4-12.4); Monocytes # 0.8 K/mcL (0.0-1.3); Monocytes % 7.7 %; Neutrophils # 6.8 K/mcL (1.6-8.9); Platelet Count 102 K/mcL (140-400); Red Blood Count 4.21 M/mcL (4.19-5.50); Red Cell Distribution Width 14.6 % (11.5-14.5)
[2017-01-03 06:50] LABS: BUN/Creatinine Ratio 28 (6-26); Blood Urea Nitrogen 38 mg/dL (8-26); Calcium 9.4 mg/dL (8.6-10.8); Carbon Dioxide 25 mEq/L (19-29); Chloride 104 mEq/L (98-109); Glucose 103 mg/dL (70-99); Osmolality,Calculated 301 (280-300); Potassium 4.4 mEq/L (3.5-4.5); Sodium 141 mEq/L (136-145); eGFR For African Americans > 60 (> 60); eGFR For Non-African Americans 50 (> 60)
[2017-01-03 06:56] LABS: Macrocytosis Present (Not Present); Platelet Estimate Decreased (Normal); Reactive Lymphocytes Present (Not Present)
[2017-01-03 06:57] LABS: Polychromasia 1+ (Not Present)
[2017-01-03] MEDS: Budesonide/Formoterol 80/4.5 MDI IH SCH ×2 (07:40→21:08)
[2017-01-03] MEDS: Cholecalciferol (D-3) 1,000 UNIT TABLET PO SCH (09:30)
[2017-01-03] MEDS: Finasteride 5 MG TABLET PO SCH (09:30)
[2017-01-03] MEDS: Folic Acid 1 MG TABLET PO SCH (09:30)
[2017-01-03] MEDS: Aspirin Enteric Coated 81 MG Tablet PO SCH (09:30)
[2017-01-03] MEDS: Vancomycin 1,250 MG in D5% in Water 250 ML IVPB SCH (09:30)
[2017-01-03] MEDS: predniSONE 10 MG TABLET PO SCH (09:30)
[2017-01-03] MEDS: Pregabalin 50 MG CAPSULE PO SCH ×2 (09:30→21:36)
--- NOTE | 2017-01-03 16:11 | Internal Med Progress Note ---
Date of Encounter: 01/03/17 Time of Encounter: 10:55 - Assessment and plan (1) Community acquired pneumonia Current Visit: Yes Status: Acute Assessment and plan: Left lower lobe pneumonia on borad coverage and treat as HCAP, given recent history of chemotherapy. no growth on cultures continue with Vancomycin and Zosyn Pharmacy to renally dose medications and to monitor vancomycin trough continue O2 supplementation monitor O2 saturation, O2 sat goal: 89-92% Patient was evaluated by PT, will benefit from SNF. follow cultures. (2) DVT prophylaxis Current Visit: Yes Status: Acute Assessment and plan: Heparin SQ (3) Rheumatoid arthritis Current Visit: Yes Status: Acute Qualifiers: Rheumatoid arthritis location: hand Rheumatoid factor presence: with rheumatoid factor Laterality: unspecified laterality Qualified Code(s): M05.749 - Rheumatoid arthritis with rheumatoid factor of unspecified hand without organ or systems involvement (4) Emphysema lung Current Visit: Yes Status: Chronic Qualifiers: Emphysema type: unspecified Qualified Code(s): J43.9 - Emphysema, unspecified (5) ROBERT (acute kidney injury) Current Visit: Yes Status: Resolved (6) Lung cancer Current Visit: No Status: Chronic Assessment and plan: 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 - Constitutional Vitals: Temp Pulse Resp BP Pulse Ox 98.6 F 76 20 114/76 93 01/03/17 15:19 01/03/17 15:19 01/03/17 15:19 01/03/17 15:19 01/03/17 15:19 General appearance: Present: mild distress, A&O X 3 Exam: patient looks short of breath, tachypenic. - Head Head exam: Present: atraumatic, normocephalic - Eye Eye exam: Present: PERRL, conjuntiva pink, sclera anicteric Pupils: Present: PERRL - Neck Neck exam general surgery: Present: supple, trachea midline. Absent: lymphadenopathy - Respiratory Respiratory exam: Present: decreased breath sounds, rhonchi. Absent: accessory muscle use, rales, wheezes - Cardiovascular Cardiovascular exam: Present: RRR, +S1, +S2. Absent: diastolic murmur, gallop, rubs, systolic murmur - GI/Abdominal GI/Abdominal exam: Present: normal bowel sounds, soft, no peritoneal signs. Absent: distended, tenderness - Extremities Exam Extremities exam: Present: warm, radial pulses palpable and symetrical. Absent : calf tenderness, cyanotic, pedal edema - Neurological Exam Neurological exam: Present: CN II-XII intact, oriented X3, no focal deficits. Absent: pronater drift, facial droop, speech deficit - Skin Skin exam: Present: dry, intact Internal Medicine: Result - Labs CBC & Chem 7: 01/03/17 06:21 01/03/17 06:21 Labs: Short CBC 01/03/17 Range/Units 06:21 WBC 10.2 (4.3-11.1) K/mcL Hgb 14.1 D (12.9-16.9) g/dL Hct 44.1 (37.5-50.1) % Plt Count 102 L (140-400) K/mcL Neutrophils # 6.8 (1.6-8.9) K/mcL BMP 01/03/17 06:21 Sodium 141 Potassium 4.4 Chloride 104 Carbon Dioxide 25 BUN 38 H Creatinine 1.35 H Glucose 103 H Calcium 9.4 - ABG Interpretation ABG results: PT/INR, D-dimer PT 11.7 Seconds (9.4-12.1) 12/30/16 13:49 D-Dimer 2279 ng/mLFEU (0-500) H 12/30/16 13:49 Consult Discharge Plan - Plan Referrals: Shreya Guzmán MD [Primary Care Provider] - 01/08/17 1:45 pm (Please follow up as schedule...)
[2017-01-04] MEDS: *HR* Heparin 5,000 UNIT/ML VIAL SQ SCH ×2 (05:38→15:41)
[2017-01-04 05:44] LABS: Basophils # 0.1 K/mcL (0.0-0.2); Basophils % 0.7 %; Eosinophils # 0.2 K/mcL (0.0-0.6); Eosinophils % 1.5 %; Hematocrit 42.9 % (37.5-50.1); Hemoglobin 13.9 g/dL (12.9-16.9); Immature Granulocytes % 3.6 % (0-4); Lymphocytes # 2.8 K/mcL (0.6-4.6); Lymphocytes % 18.7 %; Mean Corpuscular HGB Conc 32.4 g/dL (31.6-35.5); Mean Corpuscular Hemoglobin 33.5 pg (28.0-33.3); Mean Corpuscular Volume 103.4 fL (83.0-100.0); Mean Platelet Volume 10.6 fL (9.4-12.4); Monocytes # 1.3 K/mcL (0.0-1.3); Monocytes % 8.6 %; Platelet Count 123 K/mcL (140-400); Red Blood Count 4.15 M/mcL (4.19-5.50); Red Cell Distribution Width 14.5 % (11.5-14.5); Segmented Neutrophils % 66.9 %
[2017-01-04] MEDS: Piperacillin/Tazobactam 3.375 GM in D5% in Water (Mini-Bag+) 100 ML IVPB SCH ×3 (05:48→15:41)
[2017-01-04 06:06] LABS: BUN/Creatinine Ratio 30 (6-26); Blood Urea Nitrogen 32 mg/dL (8-26); Calcium 9.3 mg/dL (8.6-10.8); Carbon Dioxide 24 mEq/L (19-29); Chloride 106 mEq/L (98-109); Glucose 97 mg/dL (70-99); Osmolality,Calculated 301 (280-300); Potassium 4.4 mEq/L (3.5-4.5); Sodium 142 mEq/L (136-145); eGFR For African Americans > 60 (> 60); eGFR For Non-African Americans > 60 (> 60)
[2017-01-04 06:18] LABS: Large Platelets Present (Not Present); Macrocytosis Present (Not Present); Platelet Estimate Decreased (Normal); Reactive Lymphocytes Present (Not Present)
[2017-01-04] MEDS: Budesonide/Formoterol 80/4.5 MDI IH SCH (08:07)
[2017-01-04] MEDS: Pregabalin 50 MG CAPSULE PO SCH ×2 (09:32→20:46)
[2017-01-04] MEDS: Folic Acid 1 MG TABLET PO SCH (09:32)
[2017-01-04] MEDS: predniSONE 10 MG TABLET PO SCH (09:32)
[2017-01-04] MEDS: Finasteride 5 MG TABLET PO SCH (09:32)
[2017-01-04] MEDS: Cholecalciferol (D-3) 1,000 UNIT TABLET PO SCH (09:32)
[2017-01-04] MEDS: Aspirin Enteric Coated 81 MG Tablet PO SCH (09:32)
[2017-01-04] MEDS: Vancomycin 1,250 MG in D5% in Water 250 ML IVPB SCH (09:56)
[2017-01-04] MEDS: Ipratropium/Albuterol Neb 3 ML IH SCH ×3 (11:06→23:45)
[2017-01-04] MEDS ORDERED: Aminoglycoside Consult 1 EACH MC ONE (13:50)
--- NOTE | 2017-01-04 15:05 | Internal Med Progress Note ---
Date of Encounter: 01/04/17 Time of Encounter: 11:57 - Assessment and plan (1) Community acquired pneumonia Current Visit: Yes Status: Acute Assessment and plan: Left lower lobe pneumonia on borad coverage and treat as HCAP, given recent history of chemotherapy. no growth on cultures continue with Vancomycin and Zosyn Pharmacy to renally dose medications and to monitor vancomycin trough continue O2 supplementation monitor O2 saturation, O2 sat goal: 89-92% Patient was evaluated by PT, will benefit from SNF. follow cultures. increase stroids due to copd exacerbation and scehdyled duonebs. (2) DVT prophylaxis Current Visit: Yes Status: Acute (3) Rheumatoid arthritis Current Visit: Yes Status: Acute Qualifiers: Rheumatoid arthritis location: hand Rheumatoid factor presence: with rheumatoid factor Laterality: unspecified laterality Qualified Code(s): M05.749 - Rheumatoid arthritis with rheumatoid factor of unspecified hand without organ or systems involvement (4) Emphysema lung Current Visit: Yes Status: Chronic Assessment and plan: continue bronchodilator support O2 supplementation Monitor O2 sat hhn systemic steroids, Qualifiers: Emphysema type: unspecified Qualified Code(s): J43.9 - Emphysema, unspecified (5) ROBERT (acute kidney injury) Current Visit: Yes Status: Resolved (6) Lung cancer Current Visit: No Status: Chronic Qualifiers: Laterality: right Lung location: upper lobe of lung Qualified Code(s): C34.11 - Malignant neoplasm of upper lobe, right bronchus or lung - Subjective Interval history: still short of breath, no fever, a little bit better than yesterday. still wheezing. - Constitutional Vitals: Temp Pulse Resp BP Pulse Ox 97.3 F L 76 16 116/57 97 01/04/17 10:58 01/04/17 10:58 01/04/17 07:14 01/04/17 10:58 01/04/17 10:58 General appearance: Present: mild distress, A&O X 3 - Head Head exam: Present: atraumatic, normocephalic - Eye Eye exam: Present: PERRL, conjuntiva pink, sclera anicteric Pupils: Present: PERRL - Neck Neck exam general surgery: Present: supple, trachea midline. Absent: lymphadenopathy - Respiratory Respiratory exam: Present: decreased breath sounds, wheezes. Absent: accessory muscle use, rales, rhonchi - Cardiovascular Cardiovascular exam: Present: RRR, +S1, +S2. Absent: diastolic murmur, gallop, rubs, systolic murmur - GI/Abdominal GI/Abdominal exam: Present: normal bowel sounds, soft, no peritoneal signs. Absent: distended, tenderness - Extremities Exam Extremities exam: Present: warm, radial pulses palpable and symetrical. Absent : calf tenderness, cyanotic, pedal edema - Neurological Exam Neurological exam: Present: CN II-XII intact, oriented X3, no focal deficits. Absent: pronater drift, facial droop, speech deficit - Skin Skin exam: Present: dry, intact Internal Medicine: Result - Labs CBC & Chem 7: 01/04/17 04:34 01/04/17 04:34 Labs: Short CBC 01/04/17 Range/Units 04:34 WBC 15.0 H (4.3-11.1) K/mcL Hgb 13.9 (12.9-16.9) g/dL Hct 42.9 (37.5-50.1) % Plt Count 123 L (140-400) K/mcL Neutrophils # 10.0 H (1.6-8.9) K/mcL BMP 01/04/17 04:34 Sodium 142 Potassium 4.4 Chloride 106 Carbon Dioxide 24 BUN 32 H Creatinine 1.08 Glucose 97 Calcium 9.3 - ABG Interpretation ABG results: PT/INR, D-dimer PT 11.7 Seconds (9.4-12.1) 12/30/16 13:49 D-Dimer 2279 ng/mLFEU (0-500) H 12/30/16 13:49 Consult Discharge Plan - Plan Referrals: Shreya Guzmán MD [Primary Care Provider] - 01/08/17 1:45 pm (Please follow up as schedule...)
[2017-01-04] MEDS: MethylPREDNISolone 40 MG/ML VIAL IVP SCH (15:41)
[2017-01-04] MEDS: Silvasorb 44.4 ML TUBE TP SCH (18:26)
[2017-01-04] MEDS ORDERED: *HR* Morphine 2 MG/ML SYRINGE ONE (22:46)
[2017-01-04] MEDS ORDERED: *HR* Morphine 2 MG/ML SYRINGE IVP ONE (23:09)
[2017-01-05] MEDS: MethylPREDNISolone 40 MG/ML VIAL IVP SCH ×3 (00:27→17:20)
[2017-01-05] MEDS: Piperacillin/Tazobactam 3.375 GM in D5% in Water (Mini-Bag+) 100 ML IVPB SCH (00:27)
[2017-01-05 04:25] LABS: Basophils % 0.2 %; Hematocrit 38.7 % (37.5-50.1); Hemoglobin 12.7 g/dL (12.9-16.9); Immature Granulocytes % 4.4 % (0-4); Lymphocytes # 1.3 K/mcL (0.6-4.6); Lymphocytes % 16.4 %; Mean Corpuscular HGB Conc 32.8 g/dL (31.6-35.5); Mean Corpuscular Hemoglobin 33.1 pg (28.0-33.3); Mean Corpuscular Volume 100.8 fL (83.0-100.0); Mean Platelet Volume 10.1 fL (9.4-12.4); Monocytes # 0.2 K/mcL (0.0-1.3); Monocytes % 2.8 %; Neutrophils # 6.2 K/mcL (1.6-8.9); Platelet Count 144 K/mcL (140-400); Red Blood Count 3.84 M/mcL (4.19-5.50); Red Cell Distribution Width 14.3 % (11.5-14.5); Segmented Neutrophils % 76.2 %
[2017-01-05] MEDS: Ipratropium/Albuterol Neb 3 ML IH SCH ×4 (04:37→23:06)
[2017-01-05 04:46] LABS: BUN/Creatinine Ratio 24 (6-26); Blood Urea Nitrogen 28 mg/dL (8-26); Calcium 9.2 mg/dL (8.6-10.8); Carbon Dioxide 25 mEq/L (19-29); Chloride 102 mEq/L (98-109); Glucose 159 mg/dL (70-99); Osmolality,Calculated 301 (280-300); Potassium 4.2 mEq/L (3.5-4.5); Sodium 141 mEq/L (136-145); eGFR For African Americans > 60 (> 60); eGFR For Non-African Americans 59 (> 60)
[2017-01-05] MEDS ORDERED: Levofloxacin 750 MG/150 ML 750 MG/150 ML BAG IVPB SCH (09:00)
[2017-01-05] MEDS: *HR* Heparin 5,000 UNIT/ML VIAL SQ SCH ×2 (09:48→17:20)
[2017-01-05] MEDS: Aspirin Enteric Coated 81 MG Tablet PO SCH (09:49)
[2017-01-05] MEDS: Folic Acid 1 MG TABLET PO SCH (09:49)
[2017-01-05] MEDS: Pregabalin 50 MG CAPSULE PO SCH ×2 (09:50→20:53)
[2017-01-05] MEDS: Finasteride 5 MG TABLET PO SCH (09:50)
[2017-01-05] MEDS: Silvasorb 44.4 ML TUBE TP SCH (09:51)
[2017-01-05] MEDS: Cholecalciferol (D-3) 1,000 UNIT TABLET PO SCH (09:52)
[2017-01-05] MEDS: Levofloxacin 750 MG/150 ML 750 MG/150 ML BAG IVPB SCH (13:00)
--- NOTE | 2017-01-05 14:33 | Internal Med Progress Note ---
Date of Encounter: 01/05/17 Time of Encounter: 14:31 - Assessment and plan (1) Community acquired pneumonia Current Visit: Yes Status: Acute Assessment and plan: Left lower lobe pneumonia was on borad coverage and treat as HCAP, given recent history of chemotherapy. no growth on cultures d/c Vancomycin and Zosyn, deescalate to levaquin. continue O2 supplementation monitor O2 saturation, O2 sat goal: 89-92% Patient was evaluated by PT, will benefit from SNF. continue with steroids due to copd exacerbation and scheduled duonebs. (2) DVT prophylaxis Current Visit: Yes Status: Acute Assessment and plan: Heparin SQ (3) Rheumatoid arthritis Current Visit: Yes Status: Acute Assessment and plan: continue home medications Qualifiers: Rheumatoid arthritis location: hand Rheumatoid factor presence: with rheumatoid factor Laterality: unspecified laterality Qualified Code(s): M05.749 - Rheumatoid arthritis with rheumatoid factor of unspecified hand without organ or systems involvement (4) Emphysema lung Current Visit: Yes Status: Chronic Assessment and plan: continue bronchodilator support O2 supplementation Monitor O2 sat hhn systemic steroids Qualifiers: Emphysema type: unspecified Qualified Code(s): J43.9 - Emphysema, unspecified (5) ROBERT (acute kidney injury) Current Visit: Yes Status: Resolved Assessment and plan: Resolved continue to monitor renal function (6) Lung cancer Current Visit: No Status: Chronic Assessment and plan: 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 still wheezing. - Constitutional Vitals: Temp Pulse Resp BP Pulse Ox 97.8 F 66 16 128/71 98 01/05/17 10:46 01/05/17 10:46 01/05/17 11:30 01/05/17 10:46 01/05/17 11:30 General appearance: Present: mild distress, A&O X 3 - Head Head exam: Present: atraumatic, normocephalic - Eye Eye exam: Present: PERRL, conjuntiva pink, sclera anicteric Pupils: Present: PERRL - Neck Neck exam general surgery: Present: supple, trachea midline. Absent: lymphadenopathy - Respiratory Respiratory exam: Present: rhonchi, wheezes. Absent: accessory muscle use, rales - Cardiovascular Cardiovascular exam: Present: RRR, +S1, +S2. Absent: diastolic murmur, gallop, rubs, systolic murmur - GI/Abdominal GI/Abdominal exam: Present: normal bowel sounds, soft, no peritoneal signs. Absent: distended, tenderness - Extremities Exam Extremities exam: Present: warm, radial pulses palpable and symetrical. Absent : calf tenderness, cyanotic, pedal edema - Neurological Exam Neurological exam: Present: CN II-XII intact, oriented X3, no focal deficits. Absent: pronater drift, facial droop, speech deficit - Skin Skin exam: Present: dry, intact Internal Medicine: Result - Labs CBC & Chem 7: 01/05/17 04:02 01/05/17 04:02 Labs: Short CBC 01/05/17 Range/Units 04:02 WBC 8.2 (4.3-11.1) K/mcL Hgb 12.7 L (12.9-16.9) g/dL Hct 38.7 (37.5-50.1) % Plt Count 144 (140-400) K/mcL Neutrophils # 6.2 (1.6-8.9) K/mcL BMP 01/05/17 04:02 Sodium 141 Potassium 4.2 Chloride 102 Carbon Dioxide 25 BUN 28 H Creatinine 1.18 Glucose 159 H Calcium 9.2 - ABG Interpretation ABG results: PT/INR, D-dimer PT 11.7 Seconds (9.4-12.1) 12/30/16 13:49 D-Dimer 2279 ng/mLFEU (0-500) H 12/30/16 13:49 Consult Discharge Plan - Plan Referrals: Shreya Guzmán MD [Primary Care Provider] - 01/08/17 1:45 pm (Please follow up as schedule...)
[2017-01-06] MEDS: MethylPREDNISolone 40 MG/ML VIAL IVP SCH ×3 (01:17→17:08)
[2017-01-06 04:30] LABS: Basophils % 0.1 %; Hematocrit 36.1 % (37.5-50.1); Hemoglobin 11.8 g/dL (12.9-16.9); Immature Platelets 4.9 % (1.1-6.1); Lymphocytes # 0.8 K/mcL (0.6-4.6); Lymphocytes % 10.9 %; Mean Corpuscular HGB Conc 32.7 g/dL (31.6-35.5); Mean Corpuscular Hemoglobin 33.1 pg (28.0-33.3); Mean Corpuscular Volume 101.1 fL (83.0-100.0); Mean Platelet Volume 10.5 fL (9.4-12.4); Monocytes # 0.4 K/mcL (0.0-1.3); Monocytes % 4.8 %; Platelet Count 166 K/mcL (140-400); Red Blood Count 3.57 M/mcL (4.19-5.50); Red Cell Distribution Width 14.3 % (11.5-14.5); Segmented Neutrophils % 80.2 %
[2017-01-06] MEDS: Ipratropium/Albuterol Neb 3 ML IH SCH ×4 (04:40→22:58)
[2017-01-06 05:45] LABS: BUN/Creatinine Ratio 29 (6-26); Blood Urea Nitrogen 27 mg/dL (8-26); Carbon Dioxide 26 mEq/L (19-29); Chloride 103 mEq/L (98-109); Glucose 170 mg/dL (70-99); Osmolality,Calculated 295 (280-300); Sodium 138 mEq/L (136-145); eGFR For African Americans > 60 (> 60); eGFR For Non-African Americans > 60 (> 60)
[2017-01-06 05:46] LABS: Potassium 4.7 mEq/L (3.5-4.5)
[2017-01-06] MEDS: *HR* Heparin 5,000 UNIT/ML VIAL SQ SCH ×2 (05:59→17:08)
[2017-01-06] MEDS: Pregabalin 50 MG CAPSULE PO SCH ×3 (08:57→20:18)
[2017-01-06] MEDS: Folic Acid 1 MG TABLET PO SCH (08:57)
[2017-01-06] MEDS: Aspirin Enteric Coated 81 MG Tablet PO SCH (08:57)
[2017-01-06] MEDS: Finasteride 5 MG TABLET PO SCH (08:57)
[2017-01-06] MEDS: Silvasorb 44.4 ML TUBE TP SCH (08:58)
[2017-01-06] MEDS: Cholecalciferol (D-3) 1,000 UNIT TABLET PO SCH (08:58)
--- NOTE | 2017-01-06 10:14 | Internal Med Progress Note ---
Date of Encounter: 01/06/17 Time of Encounter: 10:13 - Assessment and plan (1) Community acquired pneumonia Current Visit: Yes Status: Acute Assessment and plan: Left lower lobe pneumonia was on borad coverage and treat as HCAP, given recent history of chemotherapy. no growth on cultures d/c Vancomycin and Zosyn yesterday, deescalate to levaquin. continue O2 supplementation monitor O2 saturation, O2 sat goal: 89-92% Patient was evaluated by PT, will benefit from SNF. continue with steroids due to copd exacerbation and scheduled duonebs. still requires more oxygen than his baseline, he has severe copd. (2) DVT prophylaxis Current Visit: Yes Status: Acute (3) Rheumatoid arthritis Current Visit: Yes Status: Acute Qualifiers: Rheumatoid arthritis location: hand Rheumatoid factor presence: with rheumatoid factor Laterality: unspecified laterality Qualified Code(s): M05.749 - Rheumatoid arthritis with rheumatoid factor of unspecified hand without organ or systems involvement (4) Emphysema lung Current Visit: Yes Status: Chronic Qualifiers: Emphysema type: unspecified Qualified Code(s): J43.9 - Emphysema, unspecified (5) ROBERT (acute kidney injury) Current Visit: Yes Status: Resolved (6) Lung cancer Current Visit: No Status: Chronic Qualifiers: Laterality: right Lung location: upper lobe of lung Qualified Code(s): C34.11 - Malignant neoplasm of upper lobe, right bronchus or lung - Subjective Interval history: still short of breath, no fever, a little bit better than yesterday. still wheezing, oxygen via nasal cannula at 6 lp last night, today at 5 lpm/ - Constitutional Vitals: Temp Pulse Resp BP Pulse Ox 98.2 F 96 20 163/74 97 01/06/17 07:22 01/06/17 07:22 01/06/17 07:22 01/06/17 07:22 01/06/17 08:04 General appearance: Present: mild distress, A&O X 3 - Head Head exam: Present: atraumatic, normocephalic - Eye Eye exam: Present: PERRL, conjuntiva pink, sclera anicteric Pupils: Present: PERRL - Neck Neck exam general surgery: Present: supple, trachea midline. Absent: lymphadenopathy - Respiratory Respiratory exam: Present: decreased breath sounds. Absent: accessory muscle use, rales, rhonchi, wheezes - Cardiovascular Cardiovascular exam: Present: RRR, +S1, +S2. Absent: diastolic murmur, gallop, rubs, systolic murmur - GI/Abdominal GI/Abdominal exam: Present: normal bowel sounds, soft, no peritoneal signs. Absent: distended, tenderness - Extremities Exam Extremities exam: Present: warm, radial pulses palpable and symetrical. Absent : calf tenderness, cyanotic, pedal edema - Neurological Exam Neurological exam: Present: CN II-XII intact, oriented X3, no focal deficits. Absent: pronater drift, facial droop, speech deficit - Skin Skin exam: Present: dry, intact Internal Medicine: Result - Labs CBC & Chem 7: 01/06/17 04:23 01/06/17 05:22 Labs: Short CBC 01/06/17 Range/Units 04:23 WBC 7.5 (4.3-11.1) K/mcL Hgb 11.8 L (12.9-16.9) g/dL Hct 36.1 L (37.5-50.1) % Plt Count 166 (140-400) K/mcL Neutrophils # 6.0 (1.6-8.9) K/mcL BMP 01/06/17 05:22 Sodium 138 Potassium 4.7 H Chloride 103 Carbon Dioxide 26 BUN 27 H Creatinine 0.94 Glucose 170 H Calcium 9.0 - ABG Interpretation ABG results: PT/INR, D-dimer PT 11.7 Seconds (9.4-12.1) 12/30/16 13:49 D-Dimer 2279 ng/mLFEU (0-500) H 12/30/16 13:49 Consult Discharge Plan - Plan Referrals: Shreya Guzmán MD [Primary Care Provider] - 01/08/17 1:45 pm (Please follow up as schedule...)
[2017-01-07] MEDS: MethylPREDNISolone 40 MG/ML VIAL IVP SCH ×4 (00:40→23:54)
[2017-01-07 04:16] LABS: Basophils % 0.2 %; Hematocrit 35.4 % (37.5-50.1); Hemoglobin 11.7 g/dL (12.9-16.9); Immature Granulocytes % 2.6 % (0-4); Lymphocytes # 0.7 K/mcL (0.6-4.6); Lymphocytes % 7.9 %; Mean Corpuscular HGB Conc 33.1 g/dL (31.6-35.5); Mean Corpuscular Hemoglobin 33.3 pg (28.0-33.3); Mean Corpuscular Volume 100.9 fL (83.0-100.0); Mean Platelet Volume 9.9 fL (9.4-12.4); Monocytes # 0.7 K/mcL (0.0-1.3); Monocytes % 7.4 %; Neutrophils # 7.3 K/mcL (1.6-8.9); Platelet Count 165 K/mcL (140-400); Red Blood Count 3.51 M/mcL (4.19-5.50); Red Cell Distribution Width 14.5 % (11.5-14.5); Segmented Neutrophils % 81.9 %
[2017-01-07 04:35] LABS: BUN/Creatinine Ratio 30 (6-26); Blood Urea Nitrogen 30 mg/dL (8-26); Calcium 9.2 mg/dL (8.6-10.8); Carbon Dioxide 31 mEq/L (19-29); Chloride 102 mEq/L (98-109); Glucose 139 mg/dL (70-99); Osmolality,Calculated 298 (280-300); Potassium 4.6 mEq/L (3.5-4.5); Sodium 140 mEq/L (136-145); eGFR For African Americans > 60 (> 60); eGFR For Non-African Americans > 60 (> 60)
[2017-01-07] MEDS: *HR* Heparin 5,000 UNIT/ML VIAL SQ SCH ×2 (06:14→18:04)
[2017-01-07] MEDS: Ipratropium/Albuterol Neb 3 ML IH SCH ×4 (06:54→23:11)
[2017-01-07] MEDS: Levofloxacin 750 MG/150 ML 750 MG/150 ML BAG IVPB SCH (08:30)
[2017-01-07] MEDS: Finasteride 5 MG TABLET PO SCH (08:31)
[2017-01-07] MEDS: Aspirin Enteric Coated 81 MG Tablet PO SCH (08:31)
[2017-01-07] MEDS: Folic Acid 1 MG TABLET PO SCH (08:32)
[2017-01-07] MEDS: Cholecalciferol (D-3) 1,000 UNIT TABLET PO SCH (08:32)
[2017-01-07] MEDS: Pregabalin 50 MG CAPSULE PO SCH ×2 (08:32→21:42)
--- NOTE | 2017-01-07 12:44 | Internal Med Progress Note ---
Date of Encounter: 01/07/17 Time of Encounter: 09:00 - Assessment and plan (1) Community acquired pneumonia Current Visit: Yes Status: Acute Assessment and plan: Left lower lobe pneumonia was on borad coverage and treat as HCAP, given recent history of chemotherapy. no growth on cultures d/c Vancomycin and Zosyn yesterday, deescalated to levaquin. continue O2 supplementation monitor O2 saturation, O2 sat goal: 89-92% Patient was evaluated by PT, will benefit from SNF. continue with steroids due to copd exacerbation and scheduled duonebs. still requires more oxygen than his baseline, he has severe copd. will try to see i he tolerates less fio2 today. (2) DVT prophylaxis Current Visit: Yes Status: Acute Assessment and plan: Heparin SQ (3) Rheumatoid arthritis Current Visit: Yes Status: Acute Qualifiers: Rheumatoid arthritis location: hand Rheumatoid factor presence: with rheumatoid factor Laterality: unspecified laterality Qualified Code(s): M05.749 - Rheumatoid arthritis with rheumatoid factor of unspecified hand without organ or systems involvement (4) Emphysema lung Current Visit: Yes Status: Chronic Assessment and plan: continue bronchodilator support O2 supplementation Monitor O2 sat hhn systemic steroids Qualifiers: Emphysema type: unspecified Qualified Code(s): J43.9 - Emphysema, unspecified (5) ROBERT (acute kidney injury) Current Visit: Yes Status: Resolved Assessment and plan: Resolved continue to monitor renal function (6) Lung cancer Current Visit: No Status: Chronic Assessment and plan: 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 still wheezing, oxygen via nasal cannula at 5 lpm/ - Constitutional Vitals: Temp Pulse Resp BP Pulse Ox 97.6 F 64 16 160/73 99 01/07/17 11:35 01/07/17 11:35 01/07/17 11:35 01/07/17 11:35 01/07/17 11:35 General appearance: Present: mild distress, A&O X 3 - Head Head exam: Present: atraumatic, normocephalic - Eye Eye exam: Present: PERRL, conjuntiva pink, sclera anicteric Pupils: Present: PERRL - Neck Neck exam general surgery: Present: supple, trachea midline. Absent: lymphadenopathy - Respiratory Respiratory exam: Present: CTAB. Absent: accessory muscle use, rales, rhonchi, wheezes - Cardiovascular Cardiovascular exam: Present: RRR, +S1, +S2. Absent: diastolic murmur, gallop, rubs, systolic murmur - GI/Abdominal GI/Abdominal exam: Present: normal bowel sounds, soft, no peritoneal signs. Absent: distended, tenderness - Extremities Exam Extremities exam: Present: warm, radial pulses palpable and symetrical. Absent : calf tenderness, cyanotic, pedal edema - Neurological Exam Neurological exam: Present: CN II-XII intact, oriented X3, no focal deficits. Absent: pronater drift, facial droop, speech deficit - Skin Skin exam: Present: dry, intact Internal Medicine: Result - Labs CBC & Chem 7: 01/07/17 04:10 01/07/17 04:10 Labs: Short CBC 01/07/17 Range/Units 04:10 WBC 9.0 (4.3-11.1) K/mcL Hgb 11.7 L (12.9-16.9) g/dL Hct 35.4 L (37.5-50.1) % Plt Count 165 (140-400) K/mcL Neutrophils # 7.3 (1.6-8.9) K/mcL BMP 01/07/17 04:10 Sodium 140 Potassium 4.6 H Chloride 102 Carbon Dioxide 31 H BUN 30 H Creatinine 1.00 Glucose 139 H Calcium 9.2 - ABG Interpretation ABG results: PT/INR, D-dimer PT 11.7 Seconds (9.4-12.1) 12/30/16 13:49 D-Dimer 2279 ng/mLFEU (0-500) H 12/30/16 13:49 Consult Discharge Plan - Plan Referrals: Shreya Guzmán MD [Primary Care Provider] - 01/08/17 1:45 pm (Please follow up as schedule...)
[2017-01-07] MEDS: Silvasorb 44.4 ML TUBE TP SCH (14:13)
[2017-01-08] MEDS: Ipratropium/Albuterol Neb 3 ML IH SCH ×2 (03:50→11:10)
[2017-01-08 04:45] LABS: Basophils % 0.1 %; Hematocrit 37.2 % (37.5-50.1); Hemoglobin 12.3 g/dL (12.9-16.9); Immature Granulocytes % 3.4 % (0-4); Lymphocytes # 0.6 K/mcL (0.6-4.6); Lymphocytes % 6.5 %; Mean Corpuscular HGB Conc 33.1 g/dL (31.6-35.5); Mean Corpuscular Hemoglobin 33.2 pg (28.0-33.3); Mean Corpuscular Volume 100.3 fL (83.0-100.0); Mean Platelet Volume 10.2 fL (9.4-12.4); Monocytes # 0.4 K/mcL (0.0-1.3); Monocytes % 4.7 %; Neutrophils # 7.4 K/mcL (1.6-8.9); Platelet Count 178 K/mcL (140-400); Red Blood Count 3.71 M/mcL (4.19-5.50); Red Cell Distribution Width 14.3 % (11.5-14.5); Segmented Neutrophils % 85.3 %
[2017-01-08 04:55] LABS: BUN/Creatinine Ratio 33 (6-26); Blood Urea Nitrogen 33 mg/dL (8-26); Calcium 9.4 mg/dL (8.6-10.8); Carbon Dioxide 31 mEq/L (19-29); Chloride 99 mEq/L (98-109); Glucose 178 mg/dL (70-99); Osmolality,Calculated 296 (280-300); Potassium 4.3 mEq/L (3.5-4.5); Sodium 137 mEq/L (136-145); eGFR For African Americans > 60 (> 60); eGFR For Non-African Americans > 60 (> 60)
[2017-01-08] MEDS: *HR* Heparin 5,000 UNIT/ML VIAL SQ SCH (05:57)
[2017-01-08] MEDS: MethylPREDNISolone 40 MG/ML VIAL IVP SCH (09:21)
[2017-01-08] MEDS: Aspirin Enteric Coated 81 MG Tablet PO SCH (09:22)
[2017-01-08] MEDS: Finasteride 5 MG TABLET PO SCH (09:22)
[2017-01-08] MEDS: Pregabalin 50 MG CAPSULE PO SCH (09:22)
[2017-01-08] MEDS: Folic Acid 1 MG TABLET PO SCH (09:22)
[2017-01-08] MEDS: Cholecalciferol (D-3) 1,000 UNIT TABLET PO SCH (09:22)
--- NOTE | 2017-01-08 10:16 | Discharge Summary ---
Date of Encounter: 01/08/17 Time of Encounter: 10:11 - Discharge Diagnosis (1) Community acquired pneumonia Priority: Primary Status: Acute (2) DVT prophylaxis Priority: Secondary Status: Acute (3) Rheumatoid arthritis Priority: Secondary Status: Acute Qualifiers: Rheumatoid arthritis location: hand Rheumatoid factor presence: with rheumatoid factor Laterality: unspecified laterality Qualified Code(s): M05.749 - Rheumatoid arthritis with rheumatoid factor of unspecified hand without organ or systems involvement (4) Emphysema lung Priority: Secondary Status: Chronic Qualifiers: Emphysema type: unspecified Qualified Code(s): J43.9 - Emphysema, unspecified (5) ROBERT (acute kidney injury) Priority: Secondary Status: Resolved (6) Lung cancer Priority: Secondary Status: Chronic Qualifiers: Laterality: right Lung location: upper lobe of lung Qualified Code(s): C34.11 - Malignant neoplasm of upper lobe, right bronchus or lung - Discharge Medications Prescriptions: Albuterol Neb [Proventil Neb] 2.5 mg IH Q4HR PRN 14 Days PRN Reason: Wheezing predniSONE [PredniSONE] 10 mg PO DAILY #30 tablet Tiotropium [Spiriva] 18 mcg IH 0700 #30 capsule Home Medications: Aspirin [Adult Low Dose Aspirin EC] 81 mg PO DAILY 09/22/15 [History] Atenolol [Tenormin] 50 mg PO DAILY 09/22/15 [History] Atorvastatin [Lipitor] 40 mg PO DAILY 09/22/15 [History] Budesonide/Formoterol 80/4.5 [Symbicort 80/4.5] 2 puff IH BIDR 09/22/15 [ History] Finasteride [Proscar] 5 mg PO DAILY 09/22/15 [History] Folic Acid 1 mg PO DAILY 09/22/15 [History] Losartan Potassium [Cozaar] 50 mg PO DAILY 09/22/15 [History] Methotrexate [Otrexup] 6 tab PO QWEEK 09/22/15 [History] Multivit-Min/FA/Vit K/Lycopene [Hm Mens 50+ Advanced One Daily] 1 each PO DAILY 09/22/15 [History] Tamsulosin [Flomax] 0.4 mg PO DAILY 09/22/15 [History] Acetaminophen [Tylenol] 650 mg PO Q6HR PRN #20 tablet 11/25/16 [Rx] Calcium Carbonate/Vitamin D3 [Calcium 500-Vit D3 600 Tablet] 1 tab PO DAILY 02/10 [History] Cyanocobalamin (Vitamin B-12) [Vitamin B12] 1,000 mcg PO DAILY 12/30/16 [History ] Oxygen 3 l .ROUTE AD 12/30/16 [History] Pregabalin [Lyrica] 50 mg PO BID 12/30/16 [History] Albuterol Neb [Proventil Neb] 2.5 mg IH Q4HR PRN 14 Days 01/08/17 [Rx] Tiotropium [Spiriva] 18 mcg IH 0700 #30 capsule 01/08/17 [Rx] predniSONE [PredniSONE] 10 mg PO DAILY #30 tablet 01/08/17 [Rx] Allergies/Adverse Reactions: Allergies celecoxib [From Celebrex] Allergy (Unknown, Verified 09/06/15 15:59) See Comments reaction unknown Latex, Natural Rubber Allergy (Unknown, Verified 09/06/15 15:59) See Comments reaction unknown rofecoxib [From Vioxx] Allergy (Unknown, Verified 09/06/15 15:59) See Comments reaction unknown Sulfa (Sulfonamide Antibiotics) Allergy (Unknown, Verified 09/22/15 15:11) Unknown Date of admission: 01/01/17 13:15 Primary care physician: Shreya Mcginnis Discharging clinician: Misael Powell Anticipated date of discharge: 01/08/17 - Patient Status Disposition: Transfer SNF Condition: Fair Functional capacity at discharge: bed bound Overall status at discharge: patient is not back to baseline - Discharge Instructions Follow Up With: Shreya Guzmán MD [Primary Care Provider] - 01/08/17 1:45 pm (Patient is going to [facility]) Additional Instructions: oncology follow up. follow up with pcp. - Diet and Activity Activity: increase activity as tolerated Diet: advance to your usual diet Interval History: Mr. 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 The patient deferred whole-brain radiation therapy. He underwent treatments with weekly carbo Taxol, which he tolerated well, was then treated with q.3 weekly dosing. He followed with Dr. Avery at the [facility] and is currently in remission. He presented today at ED with complaints of shortness of breath for the last 1 week. He denies any chest pain, no fever at home, reports that he has dry cough. He does have a history of COPD, only on oxygen as required at home. 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 He lives with his , reports that his had pneumonia a week ago and was admitted to [facility] and is currently recovering. He denies any nausea vomiting, abdominal pain or diarrhea. he denies smoking. Hospital course: Mr. Ball is a 86 year old male admitted due to left lower lobe pneumonia in the setting of COPD which require more oxygen than his baseline. Patient has history of stage IV lung cancer. He was initially treated for pneumonia with both vancomycin and Zosyn, all the cultures came back negative, testing for strep pneumonia and legionella were also negative. Patient has required more oxygen here than he usually uses at home, today he eats for liters per minute of oxygen via nasal cannula. There is no fever, there is no leukocytosis, the patient has chronic hypoxemia. His oxygen saturations range between 88-94% with current if IL-2. He did receive systemic steroids while in-house. Vancomycin and Zosyn will be escalated to Levaquin, he completed therapy with antibiotics while in-house. Today his ninth day of catheterization. His vital signs are otherwise stable, blood pressure is 149/69, heart rate is 82/m, respiratory rate is 18 per minute, wheezing have decreased, he has diminished breath sounds in both lung siddiqui. The patient is currently stable, he will be discharged to subacute rehabilitation center for continuity of care. However, in light of severity of his COPD he has high risk of hospital readmissions. The patient's CODE STATUS is full code. He should follow up with oncology for further recommendation on underlying malignancy. - Time Spent with Patient Total time spent providing and/or coordinating discharge services: - Constitutional Vitals: Temp Pulse Resp BP Pulse Ox 97.7 F 82 18 145/69 91 01/08/17 06:42 01/08/17 06:42 01/08/17 06:42 01/08/17 06:42 01/08/17 06:42 General appearance: Present: cooperative, mild distress, A&O X 3 - Head Head exam: Present: atraumatic, normocephalic - Eye Eye exam: Present: PERRL, conjuntiva pink, sclera anicteric Pupils: Present: PERRL - Neck Neck exam general surgery: Present: supple, trachea midline. Absent: lymphadenopathy - Respiratory Respiratory exam: Present: decreased breath sounds. Absent: accessory muscle use, rales, rhonchi, wheezes - Cardiovascular Cardiovascular exam: Present: RRR, +S1, +S2. Absent: diastolic murmur, gallop, rubs, systolic murmur - GI/Abdominal GI/Abdominal exam: Present: normal bowel sounds, soft, no peritoneal signs. Absent: distended, tenderness - Extremities Exam Extremities exam: Present: warm, radial pulses palpable and symetrical. Absent : calf tenderness, cyanotic, pedal edema - Neurological Exam Neurological exam: Present: CN II-XII intact, oriented X3, no focal deficits. Absent: pronater drift, facial droop, speech deficit - Skin Skin exam: Present: dry, intact
--- NOTE | 2017-01-08 10:25 | Physician Discharge Referral ---
ExtendedCare Referral Info Transfer To: [facility] - Diagnosis (1) Community acquired pneumonia Status: Acute (2) DVT prophylaxis Status: Acute (3) Rheumatoid arthritis Status: Acute (4) Emphysema lung Status: Chronic (5) ROBERT (acute kidney injury) Status: Resolved (6) Lung cancer Status: Chronic - Transfer Medications Prescriptions: Albuterol Neb [Proventil Neb] 2.5 mg IH Q4HR PRN 14 Days PRN Reason: Wheezing predniSONE [PredniSONE] 10 mg PO DAILY #30 tablet Tiotropium [Spiriva] 18 mcg IH 0700 #30 capsule Home Medications: Aspirin [Adult Low Dose Aspirin EC] 81 mg PO DAILY 09/22/15 [History] Atenolol [Tenormin] 50 mg PO DAILY 09/22/15 [History] Atorvastatin [Lipitor] 40 mg PO DAILY 09/22/15 [History] Budesonide/Formoterol 80/4.5 [Symbicort 80/4.5] 2 puff IH BIDR 09/22/15 [ History] Finasteride [Proscar] 5 mg PO DAILY 09/22/15 [History] Folic Acid 1 mg PO DAILY 09/22/15 [History] Losartan Potassium [Cozaar] 50 mg PO DAILY 09/22/15 [History] Methotrexate [Otrexup] 6 tab PO QWEEK 09/22/15 [History] Multivit-Min/FA/Vit K/Lycopene [Hm Mens 50+ Advanced One Daily] 1 each PO DAILY 09/22/15 [History] Tamsulosin [Flomax] 0.4 mg PO DAILY 09/22/15 [History] Acetaminophen [Tylenol] 650 mg PO Q6HR PRN #20 tablet 11/25/16 [Rx] Calcium Carbonate/Vitamin D3 [Calcium 500-Vit D3 600 Tablet] 1 tab PO DAILY 02/10 [History] Cyanocobalamin (Vitamin B-12) [Vitamin B12] 1,000 mcg PO DAILY 12/30/16 [History ] Oxygen 3 l .ROUTE AD 12/30/16 [History] Pregabalin [Lyrica] 50 mg PO BID 12/30/16 [History] Albuterol Neb [Proventil Neb] 2.5 mg IH Q4HR PRN 14 Days 01/08/17 [Rx] Tiotropium [Spiriva] 18 mcg IH 0700 #30 capsule 01/08/17 [Rx] predniSONE [PredniSONE] 10 mg PO DAILY #30 tablet 01/08/17 [Rx] Allergies/Adverse Reactions: Allergies celecoxib [From Celebrex] Allergy (Unknown, Verified 09/06/15 15:59) See Comments reaction unknown Latex, Natural Rubber Allergy (Unknown, Verified 09/06/15 15:59) See Comments reaction unknown rofecoxib [From Vioxx] Allergy (Unknown, Verified 09/06/15 15:59) See Comments reaction unknown Sulfa (Sulfonamide Antibiotics) Allergy (Unknown, Verified 09/22/15 15:11) Unknown - Respiratory Orders Oxygen / L per min (4) Smoking Cessation: Smoking cessation has been advised. For more information, call the [place] Tobacco Quit Line at 5-647-DUCJ-NOW. - Advance Directives Code Status: Full Code - Mobility Orders Other (as per PT) - Rehabiliation Orders Rehab Potential: Fair Rehab Orders: Evaluation for Physical Therapy, Evaluation for Occupational Therapy - Treatments Skin tear care topically daily PRN per policy - Diet Orders Cardiac CERTIFICATION: I certify that the transfer of the above named patient to an Extended Care Facility is necessary for the continuing treatment of the diagnosis listed. The above information is true and accurate reflection of patient's current condition. Confidential - Redisclosure prohibited without a patient's written consent.
[2017-01-08 11:02] VITALS: BP 147/80
[2017-01-09] MEDS ORDERED: levoFLOXacin 500 MG TABLET PO SCH (09:00)
[2017-01-09] MEDS ORDERED: predniSONE 20 MG TABLET PO SCH (09:00)
== END 2017-01-08 14:15 | DRG 190 ==
LOC: 2ANU 12:39 → EMEROO 12:39 → 2ANU 17:40 → SUATTDRO 01-01 13:15 → 2ANU 01-04 21:22
PROVIDERS: ADMIT Internal Medicine; ATTEND Internal Medicine

== ENCOUNTER 2017-03-25 07:37 | Inpatient (IN) ==
[2017-03-25] MEDS ORDERED: Ipratropium/Albuterol Neb 3 ML IH ONE (07:55)
--- NOTE | 2017-03-25 08:01 | Emergency Department Note ---
Disposition Clinical Impression: Acute exacerbation of chronic obstructive airways disease, Acute kidney injury Disposition: Admitted As Inpatient Condition: Fair Referrals: Shreya Guzmán MD [Primary Care Provider] - Forms: ED Satisfaction Letter Time of Disposition: 09:19 SOB HPI - General Chief Complaint: ED Shortness of Breath/Dyspnea Stated Complaint: TYRELL Time Seen by Provider: 03/25/17 07:43 Source: patient, EMS Limitations: no limitations Nursing Notes Reviewed: Yes Vital Signs Reviewed: Yes - History of Present Illness Alert and oriented 86-year-old male was brought by EMS for evaluation of shortness of breath. The patient states that symptoms began approximately 5 days ago however worsened substantially yesterday. He denies any cough or sputum production. He denies any chest pain or palpitations. He does state a recent history of pneumonia for which she was hospitalized for. He states "I am not sure I never got over it". He denies any abdominal pain, nausea, vomiting, or pain with inspiration. Pt Subjective Complaint: shortness of breath Onset (ago): day(s) (5 days) Severity: moderate Consistency/Duration: gradually worsening Improves with: nothing Worsens with: nothing Associated symptoms: Denies: chest pain, fever, sputum production, palpitations Treatment prior to arrival: oxygen Cough present: No - Related Data Home oxygen amount: 3 liters Home Medications Medication Instructions Recorded Confirmed Aspirin [Adult Low Dose Aspirin EC] 81 mg PO DAILY 09/22/15 12/30/16 Atenolol [Tenormin] 50 mg PO DAILY 09/22/15 12/30/16 Atorvastatin [Lipitor] 40 mg PO DAILY 09/22/15 12/30/16 Budesonide/Formoterol 80/4.5 2 puff IH BIDR 09/22/15 12/30/16 [Symbicort 80/4.5] Finasteride [Proscar] 5 mg PO DAILY 09/22/15 12/30/16 Folic Acid 1 mg PO DAILY 09/22/15 12/30/16 Losartan Potassium [Cozaar] 50 mg PO DAILY 09/22/15 12/30/16 Methotrexate [Otrexup] 6 tab PO QWEEK 09/22/15 12/30/16 Multivit-Min/FA/Vit K/Lycopene [Hm 1 each PO DAILY 09/22/15 12/30/16 Mens 50+ Advanced One Daily] Tamsulosin [Flomax] 0.4 mg PO DAILY 09/22/15 12/30/16 Calcium Carbonate/Vitamin D3 1 tab PO DAILY 12/30/16 12/30/16 [Calcium 500-Vit D3 600 Tablet] Cyanocobalamin (Vitamin B-12) 1,000 mcg PO DAILY 12/30/16 12/30/16 [Vitamin B12] Oxygen 4 l .ROUTE AD 12/30/16 12/30/16 Pregabalin [Lyrica] 50 mg PO BID 12/30/16 12/30/16 Oxygen 02/21/17 02/21/17 Previous Rx's Medication Instructions Recorded Acetaminophen [Tylenol] 650 mg PO Q6HR PRN #20 tablet 11/25/16 Albuterol Neb [Proventil Neb] 2.5 mg IH Q4HR PRN 14 Days 01/08/17 Pregabalin [Lyrica] 50 mg PO BID #60 capsule 01/08/17 Tiotropium [Spiriva] 18 mcg IH 0700 #30 capsule 01/08/17 predniSONE [PredniSONE] 10 mg PO DAILY #30 tablet 01/08/17 Ciprofloxacin [Cipro] 500 mg PO BID #20 tablet 02/21/17 Allergies Allergy/AdvReac Type Severity Reaction Status Date / Time celecoxib [From Celebrex] Allergy Unknown See Verified 03/25/17 07:42 Comments Latex, Natural Rubber Allergy Unknown See Verified 03/25/17 07:42 Comments rofecoxib [From Vioxx] Allergy Unknown See Verified 03/25/17 07:42 Comments Sulfa (Sulfonamide Allergy Unknown Unknown Verified 03/25/17 07:42 Antibiotics) Limitations: ROS unobtainable due to patients medical condition Constitutional: Denies: fever, chills, weakness, weight change Eyes: Denies: eye pain, eye discharge, vision change ENT ED: Denies: ear pain, throat pain, dental pain, hearing loss, epistaxis, congestion, dysphagia Cardiovascular: Denies: chest pain, palpitations, dyspnea on exertion, edema, syncope Respiratory: Reports: as per HPI, dyspnea. Denies: cough, wheezes, hemoptysis, stridor Gastrointestinal: Denies: abdominal pain, nausea, vomiting, diarrhea, constipation, hematemesis, melena, hematochezia Genitourinary: Denies: urgency, dysuria, frequency, hematuria Musculoskeletal: Denies: back pain, neck pain, arthralgia, myalgia Integumentary: Denies: rash, abrasion, lesions Neurological: Denies: headache, weakness, numbness, paresthesias, confusion, abnormal gait, vertigo Psychiatric: Denies: anxiety, depression, suicidal thoughts, homicidal thoughts , auditory hallucinations, visual hallucinations Endocrine: Denies: fatigue Hematological/Lymphatic: Denies: easy bleeding, easy bruising Allergic/Immunologic: Denies: facial swelling, urticaria Past Medical History - Past Medical History Attestation: Yes The following information was validated with the patient. Source: patient, nursing notes reviewed Medical history: Reports: arthritis, cancer, COPD, hyperlipidemia, myocardial infarction, RA, renal disease, other Psychiatric history: Reports: anxiety, depression - Social History Smoking Status: Former smoker Smokeless Tobacco Status: No Alcohol use: Reports: none Drug use: Reports: none Physical Exam - General Limitations: no limitations General appearance: alert - Head Head exam: atraumatic, normocephalic, normal inspection - Eye Eye exam: Present: normal appearance, PERRL, EOMI. Absent: nystagmus - ENT ENT exam: mucous membranes moist - Neck Neck exam: Present: normal inspection, full ROM, trachea midline - Chest Chest inspection: Present: normal inspection, symmetric chest wall rise - Respiratory Respiratory exam: Present: respiratory distress (Mild), other (Diminished lung sounds throughout). Absent: normal lung sounds bilaterally, wheezes, stridor, accessory muscle use - Expanded Respiratory Exam Location: rhonchi: Left, Right (Upon expiration) - Cardiovascular Cardiovascular exam: Present: normal rhythm, tachycardia, normal heart sounds - Abdominal Exam Abdominal exam: Present: soft, Non-Tender, normal bowel sounds. Absent: tenderness, distention, guarding, rebound, rigidity - Extremities Exam Extremities exam: Present: normal inspection, full ROM. Absent: tenderness, pedal edema - Neurological Exam Neurological exam: Present: alert, oriented X3 - Psychiatric Psychiatric exam: Present: normal affect, normal mood - Skin Skin exam: Present: warm, dry, intact, normal color Course Course Narrative: I have discussed this patient's case with Dr. Verma. I discussed his laboratory results as well. Dr. Verma's had a omol-ja-stdt evaluation with the patient. As the patient has no leukocytosis however a lactate level of 4.7 and evident acute kidney injury, he believes his elevated lactate level could be due to mild dehydration. However given the fact that he has a BNP of 255 and there is concern for some new onset failure, he recommends forgoing bolused fluid administration in lieu of maintenance IV fluids. We will start normal saline at 125 mL per hour. He recommends admission to the hospitalist service for COPD exacerbation and acute kidney injury. 0925: I have spoken with Dr. Vaz, of the hospitalist service. He recommended stopping the IV fluid and starting cefepime and levofloxacin. He has accepted the patient for admission to the hospitalist service. Vital Signs Temperature 97.9 F 03/25/17 07:41 Pulse Rate 110 03/25/17 07:41 Respiratory Rate 36 03/25/17 07:41 Blood Pressure 138/83 03/25/17 07:41 O2 Sat by Pulse Oximetry 90 03/25/17 07:41 Temperature 97.9 F 03/25/17 07:41 Pulse Rate 110 03/25/17 07:41 Respiratory Rate 24 03/25/17 08:00 Blood Pressure 138/83 03/25/17 08:00 O2 Sat by Pulse Oximetry 92 03/25/17 08:00 Oxygen Delivery Oxygen Delivery Nasal Cannula Shortness of Breath/Dyspnea - Medical Records Medical records reviewed: Yes I reviewed the patient's medical records. - Lab Data Lab results reviewed: Yes I reviewed the patient's lab results. Lab results narrative: Laboratory Last Values WBC 4.4 K/mcL (4.3-11.1) 03/25/17 08:28 RBC 3.62 M/mcL (4.19-5.50) L 03/25/17 08:28 Hgb 11.2 g/dL (12.9-16.9) L 03/25/17 08:28 Hct 35.6 % (37.5-50.1) L 03/25/17 08:28 MCV 98.3 fL (83.0-100.0) 03/25/17 08:28 MCH 30.9 pg (28.0-33.3) 03/25/17 08:28 MCHC 31.5 g/dL (31.6-35.5) L 03/25/17 08:28 RDW 16.7 % (11.5-14.5) H 03/25/17 08:28 Plt Count 79 K/mcL (140-400) L 03/25/17 08:28 MPV 10.3 fL (9.4-12.4) 03/25/17 08:28 Immature Gran % 9.3 % (0-4) H 03/25/17 08:28 Seg Neutrophils % 76.0 % 03/25/17 08:28 Lymphocytes % 7.5 % 03/25/17 08:28 Monocytes % 6.1 % 03/25/17 08:28 Eosinophils % 0.2 % 03/25/17 08:28 Basophils % 0.9 % 03/25/17 08:28 Neutrophils # 3.3 K/mcL (1.6-8.9) 03/25/17 08:28 Lymphocytes # 0.3 K/mcL (0.6-4.6) L 03/25/17 08:28 Monocytes # 0.3 K/mcL (0.0-1.3) 03/25/17 08:28 Eosinophils # 0.0 K/mcL (0.0-0.6) 03/25/17 08:28 Basophils # 0.0 K/mcL (0.0-0.2) 03/25/17 08:28 Platelet Estimate Slight Decrease (Normal) L 03/25/17 08:28 Immature Plt Fraction 3.0 % (1.1-6.1) 03/25/17 08:28 Hypochromasia Present (Not Present) A 03/25/17 08:28 PT 11.6 Seconds (9.4-12.1) 03/25/17 08:28 INR 1.1 03/25/17 08:28 APTT 24.2 Seconds (26.0-36.0) L 03/25/17 08:28 Sodium 140 mEq/L (136-145) 03/25/17 08:28 Potassium 4.0 mEq/L (3.5-4.5) 03/25/17 08:28 Chloride 104 mEq/L (98-109) 03/25/17 08:28 Carbon Dioxide 26 mEq/L (19-29) 03/25/17 08:28 BUN 36 mg/dL (8-26) H 03/25/17 08:28 Creatinine 1.28 mg/dL (0.72-1.25) H 03/25/17 08:28 Est GFR ( Amer) > 60 (> 60) 03/25/17 08:28 Est GFR (Non-Af Amer) 53 (> 60) L 03/25/17 08:28 BUN/Creatinine Ratio 28 (6-26) H 03/25/17 08:28 Glucose 129 mg/dL (70-99) H 03/25/17 08:28 Calculated Osmolality 300 (280-300) 03/25/17 08:28 Lactic Acid 4.7 mmol/L (0.5-2.2) H* 03/25/17 08:28 Calcium 9.9 mg/dL (8.6-10.8) 03/25/17 08:28 Troponin I 0.02 ng/mL (0-0.03) 03/25/17 08:28 B-Natriuretic Peptide 255 pg/mL (0-100) H 03/25/17 08:28 Result diagrams: 03/25/17 08:28 03/25/17 08:28 Lab Results 03/25/17 03/25/17 03/25/17 Range/Units 08:28 08:28 08:28 WBC 4.4 (4.3-11.1) K/mcL RBC 3.62 L (4.19-5.50) M/mcL Hgb 11.2 L (12.9-16.9) g/dL Hct 35.6 L (37.5-50.1) % MCV 98.3 (83.0-100.0) fL MCH 30.9 (28.0-33.3) pg MCHC 31.5 L (31.6-35.5) g/dL RDW 16.7 H (11.5-14.5) % Plt Count 79 L (140-400) K/mcL MPV 10.3 (9.4-12.4) fL Immature Gran % 9.3 H (0-4) % Seg Neutrophils % 76.0 % Lymphocytes % 7.5 % Monocytes % 6.1 % Eosinophils % 0.2 % Basophils % 0.9 % Neutrophils # 3.3 (1.6-8.9) K/mcL Lymphocytes # 0.3 L (0.6-4.6) K/mcL Monocytes # 0.3 (0.0-1.3) K/mcL Eosinophils # 0.0 (0.0-0.6) K/mcL Basophils # 0.0 (0.0-0.2) K/mcL Platelet Estimate Slight Decrease L (Normal) Immature Plt Fraction 3.0 (1.1-6.1) % Hypochromasia Present A (Not Present) PT (9.4-12.1) Seconds INR APTT (26.0-36.0) Seconds Sodium 140 (136-145) mEq/L Potassium 4.0 (3.5-4.5) mEq/L Chloride 104 (98-109) mEq/L Carbon Dioxide 26 (19-29) mEq/L BUN 36 H (8-26) mg/dL Creatinine 1.28 H (0.72-1.25) mg/dL Est GFR ( Amer) > 60 (> 60) Est GFR (Non-Af Amer) 53 L (> 60) BUN/Creatinine Ratio 28 H (6-26) Glucose 129 H (70-99) mg/dL Calculated Osmolality 300 (280-300) Lactic Acid 4.7 H* (0.5-2.2) mmol/L Calcium 9.9 (8.6-10.8) mg/dL Troponin I (0-0.03) ng/mL B-Natriuretic Peptide (0-100) pg/mL 03/25/17 03/25/17 03/25/17 Range/Units 08:28 08:28 08:28 WBC (4.3-11.1) K/mcL RBC (4.19-5.50) M/mcL Hgb (12.9-16.9) g/dL Hct (37.5-50.1) % MCV (83.0-100.0) fL MCH (28.0-33.3) pg MCHC (31.6-35.5) g/dL RDW (11.5-14.5) % Plt Count (140-400) K/mcL MPV (9.4-12.4) fL Immature Gran % (0-4) % Seg Neutrophils % % Lymphocytes % % Monocytes % % Eosinophils % % Basophils % % Neutrophils # (1.6-8.9) K/mcL Lymphocytes # (0.6-4.6) K/mcL Monocytes # (0.0-1.3) K/mcL Eosinophils # (0.0-0.6) K/mcL Basophils # (0.0-0.2) K/mcL Platelet Estimate (Normal) Immature Plt Fraction (1.1-6.1) % Hypochromasia (Not Present) PT 11.6 (9.4-12.1) Seconds INR 1.1 APTT 24.2 L (26.0-36.0) Seconds Sodium (136-145) mEq/L Potassium (3.5-4.5) mEq/L Chloride (98-109) mEq/L Carbon Dioxide (19-29) mEq/L BUN (8-26) mg/dL Creatinine (0.72-1.25) mg/dL Est GFR ( Amer) (> 60) Est GFR (Non-Af Amer) (> 60) BUN/Creatinine Ratio (6-26) Glucose (70-99) mg/dL Calculated Osmolality (280-300) Lactic Acid (0.5-2.2) mmol/L Calcium (8.6-10.8) mg/dL Troponin I 0.02 (0-0.03) ng/mL B-Natriuretic Peptide 255 H (0-100) pg/mL - Radiology Data Radiology results reviewed: Yes I reviewed the patient's radiology results. Chest X-Ray 03/25/17 07:43 IMPRESSION: Increased lung markings in the background of chronic lung changes, likely related to bronchitis versus mild pulmonary vascular congestion. D/ / Hunter Harvey MD / Hunter Harvey MD Interpreting Provider: Hunter Harvey MD - EKG Data EKG attestation: Yes I reviewed and interpreted this EKG. EKG results narrative: EKG reviewed by Dr. Verma as well. EKG shows sinus tachycardia with frequent PVCs at a rate of 144 bpm. No STEMI. Attestation Statement - Attestation Attestation: 86-year-old with a 5 day history of increasing shortness of breath without productive cough. She has a history of lung cancer which was treated and apparently is in remission. Examination lungs are diminished with scattered wheezes and some rhonchi. States chest x-ray shows bronchitis versus mild pulmonary congestion. Lactate is elevated at 4.7. Patient will be admitted to IV antibiotics
[2017-03-25 08:34] LABS: Hemoglobin 11.2 g/dL (12.9-16.9); Mean Corpuscular HGB Conc 31.5 g/dL (31.6-35.5); Red Cell Distribution Width 16.7 % (11.5-14.5)
[2017-03-25 08:36] LABS: Basophils % 0.9 %; Eosinophils % 0.2 %; Hematocrit 35.6 % (37.5-50.1); Immature Granulocytes % 9.3 % (0-4); Lymphocytes # 0.3 K/mcL (0.6-4.6); Lymphocytes % 7.5 %; Mean Corpuscular Hemoglobin 30.9 pg (28.0-33.3); Mean Corpuscular Volume 98.3 fL (83.0-100.0); Mean Platelet Volume 10.3 fL (9.4-12.4); Monocytes # 0.3 K/mcL (0.0-1.3); Monocytes % 6.1 %; Red Blood Count 3.62 M/mcL (4.19-5.50)
[2017-03-25 08:38] LABS: Neutrophils # 3.3 K/mcL (1.6-8.9); Platelet Count 79 K/mcL (140-400)
[2017-03-25 08:41] LABS: INR 1.1; Prothrombin Time 11.6 Seconds (9.4-12.1)
[2017-03-25 08:44] LABS: Activated Partial Thrombo Time 24.2 Seconds (26.0-36.0)
[2017-03-25 08:49] LABS: BUN/Creatinine Ratio 28 (6-26); Blood Urea Nitrogen 36 mg/dL (8-26); Calcium 9.9 mg/dL (8.6-10.8); Carbon Dioxide 26 mEq/L (19-29); Chloride 104 mEq/L (98-109); Glucose 129 mg/dL (70-99); Osmolality,Calculated 300 (280-300); Sodium 140 mEq/L (136-145); eGFR For African Americans > 60 (> 60); eGFR For Non-African Americans 53 (> 60)
[2017-03-25 08:57] LABS: Hypochromasia Present (Not Present); Platelet Estimate Slight Decrease (Normal)
[2017-03-25] MEDS ORDERED: Levofloxacin 500 MG/100 ML 500 MG/100 ML BAG IVPB ONE (09:27)
[2017-03-25] MEDS ORDERED: Cefepime HCl 1,000 MG in D5% in Water (Mini-Bag+) 100 ML IVPB STA (09:27)
[2017-03-25] MEDS ORDERED: Ipratropium/Albuterol Neb 3 ML IH SCH (09:30)
[2017-03-25] MEDS ORDERED: 0.9 % Sodium Chloride 1,000 ML IVC SCH (09:30)
[2017-03-25] MEDS ORDERED: Naloxone 0.4 MG/ML INJ IVP PRN (09:32)
[2017-03-25] MEDS ORDERED: Ondansetron ODT 4 MG TAB.RAPDIS SL PRN (09:32)
[2017-03-25] MEDS ORDERED: *HR* Morphine 2 MG/ML SYRINGE IVP PRN (09:32)
[2017-03-25] MEDS ORDERED: Ondansetron 4 MG/2 ML VIAL IVP PRN (09:32)
[2017-03-25 09:41] LABS: Bilirubin,Urine Negative (Negative); Blood,Urine Moderate (Negative); Clarity,Urine Cloudy (Clear); Color,Urine Dark Yellow (Yellow); Glucose,Urine (UA) Normal (Normal); Ketones,Urine Negative (Negative); Leukocyte Esterase,Urine Negative (Negative); Nitrite,Urine Negative (Negative); PH,Urine 5.5 pH Units (5.0-8.0); Protein,Urine 30 mg/dL (Neg-Trace); Specific Gravity,Urine 1.025 (1.010-1.025); Urobilinogen,Urine Normal (Normal)
[2017-03-25 09:44] LABS: Bacteria,Urine None Seen per hpf (None-Few); Squamous Epithelial Cell,Urine Many per lpf (None-Few)
[2017-03-25 09:54] LABS: Calcium Oxalate Crystals,Urine Present; Hyaline Casts,Urine Few per lpf (None-Few); RBC,Urine 15-30 per hpf (0-3)
[2017-03-25] MEDS ORDERED: Nystatin Cream 15 GM TUBE TP PRN (10:56)
--- NOTE | 2017-03-25 11:09 | Internal Med History&Physical ---
Date of Encounter: 03/25/17 Time of Encounter: 10:30 Assessment and Plan (1) Sepsis Current visit: Yes Status: Acute We will admit the patient telemetry patient does meet the sepsis criteria with the tachycardic, tachypneic, significantly elevated lactic acid and source of infection as pneumonia at this point I would start him on broad-spectrum antibiotic with cefepime, vancomycin and levofloxacin will send for blood culture, sputum culture, strep pneumonia as well as Legionella titer Qualifiers: Qualified Code(s): A41.9 - Sepsis, unspecified organism (2) Community acquired pneumonia Current visit: No Status: Acute Mostly bacterial continuing on broad-spectrum antibiotic encourages frequent incentive spirometry (3) Acute and chronic respiratory failure with hypoxia Current visit: Yes Status: Acute due multi lobular community acquired pneumonia (4) Acute exacerbation of chronic obstructive airways disease Current visit: Yes Status: Acute Started him on IV steroids Solu-Medrol 40 mg IV Q6 only continue duoneb Q4 only continue him on oxygen to maintain pulse oxy around 90 - 92 (5) Congestive heart failure (CHF) Current visit: Yes Status: Acute Reviewed patient labs and CXR his vascular congestion could be due to pneumonia however there might be underlying a component of heart failure especially with his bilateral LE pitting pedal edema we will get a 2-D echo since patient does Amber pneumonia and elevated lactic acid he is high risk to develop hypotension so we will use Lasix as needed at this point of time if he becomes more volume overload continue beta clyde aspirin and statin Qualifiers: Congestive heart failure type: unspecified congestive heart failure type Qualified Code(s): I50.9 - Heart failure, unspecified (6) Acute kidney injury Current visit: Yes Status: Acute Due to sepsis with pneumonia will try to avoid any nephrotoxic medication (7) Lung cancer Current visit: No Status: Chronic In remission as per patient Qualifiers: Laterality: right Lung location: upper lobe of lung Qualified Code(s): C34.11 - Malignant neoplasm of upper lobe, right bronchus or lung (8) Rheumatoid arthritis Current visit: No Status: Acute Qualifiers: Rheumatoid arthritis location: hand Rheumatoid factor presence: with rheumatoid factor Laterality: unspecified laterality Qualified Code(s): M05.749 - Rheumatoid arthritis with rheumatoid factor of unspecified hand without organ or systems involvement (9) Neuropathy Current visit: No Status: Chronic Resumed home medication methotrexate Internal Medicine - H&P: HPI Chief complaint: Shortness of breath Admitted From: Home Plans for Post Hospital Care: Home History of present illness: Mr. 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 Now he presented to the emergency room complaining about from last couple of months he has been having progressively worsening shortness of breath, which really worsened during last 5 days. He denied of any cough, no nausea and vomiting, no chest pain. However he does have orthopnea and DEAN. He was treated with oral antibiotic couple of months ago for pneumonia . He also stated that his have bad active pneumonia at home now. Past Med Surg Social Fam HX - Past Medical History Medical history: arthritis, cancer, COPD, hyperlipidemia, myocardial infarction , RA, renal disease, other Psychiatric history: anxiety, depression - Social History Smoking Status: Former smoker Smokeless Tobacco Status: No Alcohol use: none Drug use: none - Family History Father Hx Family Cardiac Disorders: Yes Brother Hx Family Cardiac Disorders: Yes ([place]) Internal Medicine - H&P: Meds Aspirin [Adult Low Dose Aspirin EC] 81 mg PO DAILY 09/22/15 [History] Atenolol [Tenormin] 50 mg PO DAILY 09/22/15 [History] Atorvastatin [Lipitor] 40 mg PO DAILY 09/22/15 [History] Budesonide/Formoterol 80/4.5 [Symbicort 80/4.5] 2 puff IH BIDR 09/22/15 [ History] Finasteride [Proscar] 5 mg PO DAILY 09/22/15 [History] Folic Acid 1 mg PO DAILY 09/22/15 [History] Losartan Potassium [Cozaar] 50 mg PO DAILY 09/22/15 [History] Methotrexate [Otrexup] 15 mg PO GIRALDO 09/22/15 [History] Multivit-Min/FA/Vit K/Lycopene [Hm Mens 50+ Advanced One Daily] 1 each PO DAILY 09/22/15 [History] Tamsulosin [Flomax] 0.4 mg PO DAILY 09/22/15 [History] Calcium Carbonate/Vitamin D3 [Calcium 500-Vit D3 600 Tablet] 1 tab PO DAILY 02/10 [History] Albuterol Neb [Proventil Neb] 2.5 mg IH Q4HR PRN 14 Days 01/08/17 [Rx] Tiotropium [Spiriva] 18 mcg IH 0700 #30 capsule 01/08/17 [Rx] predniSONE [PredniSONE] 10 mg PO DAILY #30 tablet 01/08/17 [Rx] Oxygen 3 l NS AD 02/21/17 [History] Acetaminophen [Tylenol] 650 mg PO Q6H PRN 03/25/17 [History] Doxazosin [Cardura] 4 mg PO 0800 03/25/17 [History] Nystatin Cream [Mycostatin Cream] 1 appl TP BID PRN 03/25/17 [History] Propylene Glycol/Peg 400 [Systane 0.3-0.4% Eye Drops] 1 drop BOTH EYES BID PRN 03/25/17 [History] Allergies celecoxib [From Celebrex] Allergy (Unknown, Verified 03/25/17 09:37) See Comments reaction unknown Latex, Natural Rubber Allergy (Unknown, Verified 03/25/17 09:37) See Comments reaction unknown rofecoxib [From Vioxx] Allergy (Unknown, Verified 03/25/17 09:37) See Comments reaction unknown Sulfa (Sulfonamide Antibiotics) Allergy (Unknown, Verified 03/25/17 09:37) Unknown All Systems PM: A 10-system review of systems was performed and is negative for pertinent findings except as documented above in the HPI. Review of systems: All the systems are reviewed everything is benign except the systems and symptoms I mentioned in the history of present illness - Constitutional Vitals: Temp Pulse Resp BP Pulse Ox 97.9 F 137 30 113/59 92 03/25/17 07:41 03/25/17 09:30 03/25/17 10:06 03/25/17 10:06 03/25/17 09:30 General appearance: Present: mild distress, A&O X 3, answers questions appropriately - Head Head exam: Present: atraumatic, normal inspection - Neck Neck exam general surgery: Present: normal inspection, supple. Absent: lymphadenopathy - Respiratory Respiratory exam: Present: decreased breath sounds, rales, respiratory distress , rhonchi, wheezes - Cardiovascular Cardiovascular exam: Present: RRR, +S1, +S2. Absent: gallop, systolic murmur - GI/Abdominal GI/Abdominal exam: Present: normal bowel sounds, soft, no peritoneal signs. Absent: distended, tenderness - Extremities Exam Extremities exam: Present: pedal edema (1 + pitting), warm. Absent: calf tenderness, tenderness - Neurological Exam Neurological exam: Present: alert, oriented X3 - Psychiatric Psychiatric exam: Present: normal affect, normal mood - Skin Skin exam: Absent: erythema, rash Internal Med - H&P Results - Labs CBC & Chem 7: 03/25/17 08:28 03/25/17 08:28 - EKG Data -: EKG Interpreted by Myself EKG shows normal: ST-T waves (No significant ST T changes) Rate: tachycardia (with Vent rate 144) - Diagnostic Studies Chest x-ray Status: image reviewed by me (showing infiltrates RML and princess bronchial thickening b/l.. Emphysematous changes)
[2017-03-25] MEDS: Ipratropium/Albuterol Neb 3 ML IH SCH ×3 (11:12→20:31)
[2017-03-25] MEDS: MethylPREDNISolone 40 MG/ML VIAL IVP SCH ×3 (11:38→23:21)
[2017-03-25] MEDS: *HR* Methotrexate 2.5 MG TABLET PO SCH (11:49)
[2017-03-25] MEDS ORDERED: Vancomycin 1,000 MG in D5% in Water 250 ML IVPB ONE (14:27)
[2017-03-25] MEDS: Vancomycin 1,000 MG in D5% in Water 250 ML IVPB SCH (17:29)
[2017-03-25] MEDS ORDERED: Furosemide 20 MG/2 ML VIAL IVP ONE (18:15)
[2017-03-25] MEDS: Famotidine 20 MG TABLET PO SCH (19:42)
[2017-03-25] MEDS: *HR* Heparin 5,000 UNIT/ML VIAL SQ SCH (19:42)
[2017-03-25] MEDS ORDERED: 0.9 % Sodium Chloride 1,000 ML IVC ONE (20:16)
[2017-03-25] MEDS: Budesonide/Formoterol 80/4.5 MDI IH SCH (20:32)
[2017-03-25] MEDS: Cefepime HCl 1,000 MG in D5% in Water (Mini-Bag+) 100 ML IVPB SCH (21:31)
[2017-03-26] MEDS: Ipratropium/Albuterol Neb 3 ML IH SCH ×7 (00:04→23:06)
[2017-03-26 04:00] LABS: Hematocrit 28.5 % (37.5-50.1); Hemoglobin 9.1 g/dL (12.9-16.9); Immature Platelets 3.5 % (1.1-6.1); Lymphocytes # 0.2 K/mcL (0.6-4.6); Mean Corpuscular HGB Conc 31.9 g/dL (31.6-35.5); Mean Corpuscular Hemoglobin 31.2 pg (28.0-33.3); Mean Corpuscular Volume 97.6 fL (83.0-100.0); Mean Platelet Volume 10.5 fL (9.4-12.4); Platelet Count 76 K/mcL (140-400); Red Blood Count 2.92 M/mcL (4.19-5.50); Red Cell Distribution Width 16.4 % (11.5-14.5)
[2017-03-26 04:12] LABS: BUN/Creatinine Ratio 31 (6-26); Blood Urea Nitrogen 38 mg/dL (8-26); Calcium 8.6 mg/dL (8.6-10.8); Carbon Dioxide 24 mEq/L (19-29); Chloride 104 mEq/L (98-109); Glucose 213 mg/dL (70-99); Osmolality,Calculated 299 (280-300); Sodium 137 mEq/L (136-145); eGFR For African Americans > 60 (> 60); eGFR For Non-African Americans 56 (> 60)
[2017-03-26 04:33] LABS: Monocytes # 0.4 K/mcL (0.0-1.3); Neutrophils # 3.4 K/mcL (1.6-8.9); Platelet Estimate Decreased (Normal)
[2017-03-26 04:34] LABS: Anisocytosis 1+ (Not Present); Burr Cells 1+ (Not Present); Tear Drop Cells 1+ (Not Present)
[2017-03-26] MEDS: MethylPREDNISolone 40 MG/ML VIAL IVP SCH ×4 (05:43→22:33)
[2017-03-26] MEDS: *HR* Heparin 5,000 UNIT/ML VIAL SQ SCH ×2 (05:43→16:29)
[2017-03-26] MEDS: Budesonide/Formoterol 80/4.5 MDI IH SCH ×2 (08:52→20:43)
[2017-03-26] MEDS ORDERED: Levofloxacin 500 MG/100 ML 500 MG/100 ML BAG IVPB SCH (09:00)
[2017-03-26] MEDS: Famotidine 20 MG TABLET PO SCH ×2 (09:17→20:43)
[2017-03-26] MEDS: Folic Acid 1 MG TABLET PO SCH (09:17)
[2017-03-26] MEDS: Multivit/Ca/Min/Fe/FA 1 TAB TABLET PO SCH (09:17)
[2017-03-26] MEDS: Aspirin Enteric Coated 81 MG Tablet PO SCH (09:17)
[2017-03-26] MEDS: Finasteride 5 MG TABLET PO SCH (09:18)
[2017-03-26] MEDS: Cefepime HCl 1,000 MG in D5% in Water (Mini-Bag+) 100 ML IVPB SCH ×2 (09:21→22:33)
[2017-03-26 13:05] LABS: Acinetobacter baumannii by PCR Not Detected (Not Detect); Enterococcus by PCR Not Detected (Not Detect); Escherichia coli by PCR Not Detected (Not Detect); Klebsiella oxytoca by PCR Not Detected (Not Detect); Klebsiella pneumoniae by PCR Not Detected (Not Detect); Serratia marcescens by PCR Not Detected (Not Detect); Staphylococcus aureus by PCR Not Detected (Not Detect); Streptococcus agalactiae(B)PCR Not Detected (Not Detect); Streptococcus by PCR Not Detected (Not Detect); Streptococcus pneumoniae PCR Not Detected (Not Detect); Streptococcus pyogenes (A) PCR Not Detected (Not Detect); mecA Methicillin-Resist Gene ***DETECTED*** (Not Detect)
[2017-03-26 13:06] LABS: Candida albicans by PCR Not Detected (Not Detect); Candida glabrata by PCR Not Detected (Not Detect); Candida krusei by PCR Not Detected (Not Detect); Candida parapsilosis by PCR Not Detected (Not Detect); Candida tropicalis by PCR Not Detected (Not Detect); Pseudomonas aeruginosa by PCR Not Detected (Not Detect)
[2017-03-26] MEDS ORDERED: *HR* Dextrose 50 % in Water (Syg) 50 ML SYRINGE IVP PRN (14:37)
[2017-03-26] MEDS ORDERED: Dextrose Gel 15 GM PO PRN ×2 (14:37)
[2017-03-26] MEDS ORDERED: D5% in Water 1,000 ML IVC PRN (14:37)
--- NOTE | 2017-03-26 15:31 | Oncology Inp Consult Note ---
Date of Encounter: 03/26/17 Time of Encounter: 15:08 Assessment and Plan (1) Lung cancer Status: Chronic Assessment and plan: We reviewed the previous reported clinical events that led to the diagnosis of lung cancer, including reported CXR and pathology results ( from bronchoscopy). 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 His last CT chest from August 2015 showed findings consistent with remission. He has not had follow up imaging since then. - He reports a history of brain lesion suspicious for metastatic disease, for which he underwent treatment with cybarknife, and with a follow up brain imaging revealing resolution of it. - At this time his respiratory complaints seem to be better explained for COPD exacerbation + sepsis/PNA, in view of the acuity ( 4-5 days). I'd be surprised, if his acute presentation is the result of progression of his cancer. In order to rule out this possibility, I'd recommend to check a CT chest with IV contrast. If the CT reveals suspicious findings, a biopsy procedure/ bronchoscopy may be required. - Upon discharge, he will need a short follow up with his primary oncologist Dr. Bakari Macias for clinical and radiological surveillance. - He will need a brain MRI ( in view of his history of presumptive brain metastatic lesion), although this could be as outpatient ( since he does not report or present focal neurologic deficits or other concerning clinical findings). Qualifiers: Laterality: right Lung location: upper lobe of lung Qualified Code(s): C34.11 - Malignant neoplasm of upper lobe, right bronchus or lung (2) Pancytopenia Status: Acute Assessment and plan: -The intermittent pattern, with normal recent values makes MDS less likely. Probably secondary to Methotrexate, with recent drop secondary to sepsis/PNA. -Order duplicated blood smear and monitor CBC diff daily. - Supportive management with transfusion of blood products of Hb drops below 7 g /dl, or platelets drop below 20-30K. (3) Acute and chronic respiratory failure with hypoxia Status: Acute Assessment and plan: I appreciate excellent management of primary team. Probably multi factorial with recent worsening better explained for COPD exacerbation and pneumonia. - Data of Consult Requesting Physician: Nic Benson MD Primary Care Provider: Shreya Mccauley-[facility] - Consult Narrative Reason for consult: Management of lung cancer, possible history of metastatic brain lesion. History of present illness: Mr. Ball is a 86 year old male with history COPD ( o2 dependent, at baseline requiring 3 L oxygen), history of smoking ( 40 pack year)rheumatoid arthritis on Methotrexate and reported history of lung cancer, presumable metastatic in view of suspicious brain lesion. Mr. Ball reports that he was diagnosed with COPD approximately 5 years ago, he was not certain about the dates, but it's positive that approximately 2-3 years ago he was found to have a right lower lobe lesion for which he underwent a bronchoscopy here at [facility]. He reports that biopsy procedure was completed during the bronchoscopy, revealing results consistent with lung cancer. He does not remember which type of lung cancer. I could not find the pathology result in our electronic medical record, but previous notes of Dr. 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 He underwent his last follow up CT chest on August 2015; at that time his cancer was thought to be in remission. His treatment history included carbo/ taxol ( initially administered weekly, then every 3 weeks), with last treatment administered in May 2015. 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 He reports that he came to the hospital due to shortness of breath, acute on chronic. [facility]. He reports chronic dry cough, but denies recent fever, chest pain. There is not history of VTE. He reports some improvement since admission, but does not feel that his breathing is back to baseline. He denies any fall for the last 6 months. He reports generalized weakness that has been going on for a while, but not recent episodes of focal weakness, or gait unbalance or other focal neurologic deficits. He reports that he lives with his . 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 His daughter who is currently unemployed, lives with he and his . He reports that she provide great support at home, along with transportation. Past Med Surg Social Fam HX - Past Medical History Medical history: arthritis, cancer, COPD, hyperlipidemia, myocardial infarction , RA, renal disease, other Psychiatric history: anxiety, depression - Past Surgical History Surgical History: appendectomy - Social History Smoking Status: Former smoker Smokeless Tobacco Status: No Alcohol use: none Drug use: none - Family History Father Hx Family Cardiac Disorders: Yes Brother Hx Family Cardiac Disorders: Yes ([place]) Medications and Allergies Aspirin [Adult Low Dose Aspirin EC] 81 mg PO DAILY 09/22/15 [History] Atenolol [Tenormin] 50 mg PO DAILY 09/22/15 [History] Atorvastatin [Lipitor] 40 mg PO DAILY 09/22/15 [History] Budesonide/Formoterol 80/4.5 [Symbicort 80/4.5] 2 puff IH BIDR 09/22/15 [ History] Finasteride [Proscar] 5 mg PO DAILY 09/22/15 [History] Folic Acid 1 mg PO DAILY 09/22/15 [History] Losartan Potassium [Cozaar] 50 mg PO DAILY 09/22/15 [History] Methotrexate [Otrexup] 15 mg PO GIRALDO 09/22/15 [History] Multivit-Min/FA/Vit K/Lycopene [Hm Mens 50+ Advanced One Daily] 1 each PO DAILY 09/22/15 [History] Tamsulosin [Flomax] 0.4 mg PO DAILY 09/22/15 [History] Calcium Carbonate/Vitamin D3 [Calcium 500-Vit D3 600 Tablet] 1 tab PO DAILY 02/10 [History] Albuterol Neb [Proventil Neb] 2.5 mg IH Q4HR PRN 14 Days 01/08/17 [Rx] Tiotropium [Spiriva] 18 mcg IH 0700 #30 capsule 01/08/17 [Rx] predniSONE [PredniSONE] 10 mg PO DAILY #30 tablet 01/08/17 [Rx] Oxygen 3 l NS AD 02/21/17 [History] Acetaminophen [Tylenol] 650 mg PO Q6H PRN 03/25/17 [History] Doxazosin [Cardura] 4 mg PO 0800 03/25/17 [History] Nystatin Cream [Mycostatin Cream] 1 appl TP BID PRN 03/25/17 [History] Propylene Glycol/Peg 400 [Systane 0.3-0.4% Eye Drops] 1 drop BOTH EYES BID PRN 03/25/17 [History] Allergies celecoxib [From Celebrex] Allergy (Unknown, Verified 03/25/17 09:37) See Comments reaction unknown Latex, Natural Rubber Allergy (Unknown, Verified 03/25/17 09:37) See Comments reaction unknown rofecoxib [From Vioxx] Allergy (Unknown, Verified 03/25/17 09:37) See Comments reaction unknown Sulfa (Sulfonamide Antibiotics) Allergy (Unknown, Verified 03/25/17 09:37) Unknown Constitutional: Present: fatigue, malaise, weakness. Absent: fever(s), headache (s) Cardiovascular: Present: dyspnea on exertion. Absent: chest pain with activity , radiating jaw, neck or arm pain, rapid heart rate Respiratory: Present: dyspnea, dyspnea on exertion. Absent: hemoptysis, excessive phlegm production, change in phlegm color Gastrointestinal: Absent: abdominal pain, diarrhea, dysphagia, melena, odynophagia Genitourinary: as per HPI Musculoskeletal: Present: as per HPI Neurological: Absent: focal weakness, lack of coordination Psychiatric: Absent: hallucinations Hematologic/Lymphatic: Present: as per HPI Allergic/Immunologic: Present: as per HPI Oncology - Exam - Constitutional Vitals: Temp Pulse Resp BP Pulse Ox 97.2 F L 93 18 114/96 98 03/26/17 10:59 03/26/17 12:15 03/26/17 11:23 03/26/17 10:59 03/26/17 11:23 - ENT ENT exam: Present: normal oropharynx - Neck Neck exam: Present: normal inspection - Respiratory Respiratory exam: Present: rales, rhonchi. Absent: accessory muscle use, chest wall tenderness, wheezes - Cardiovascular Cardiovascular exam: Present: RRR, +S1. Absent: systolic murmur - GI/Abdominal GI/Abdominal exam: Present: normal bowel sounds. Absent: organomegaly, tenderness - Extremities Exam Extremities exam: Present: normal inspection - Neurological Exam Neurological exam: Present: oriented X3. Absent: no focal deficits - Psychiatric Psychiatric exam: Present: normal affect - Skin Skin exam: Present: normal color Oncology - Results - Labs Labs: Short CBC 03/26/17 Range/Units 03:51 WBC 3.9 L (4.3-11.1) K/mcL Hgb 9.1 L D (12.9-16.9) g/dL Hct 28.5 L (37.5-50.1) % Plt Count 76 L (140-400) K/mcL Neutrophils # 3.4 (1.6-8.9) K/mcL BMP 03/26/17 03:51 Sodium 137 Potassium 4.0 Chloride 104 Carbon Dioxide 24 BUN 38 H Creatinine 1.22 Glucose 213 H Calcium 8.6 Consult Discharge Plan - Plan Referrals: Shreya Guzmán MD [Primary Care Provider] -
--- NOTE | 2017-03-26 15:43 | Internal Med Progress Note ---
Date of Encounter: 03/26/17 Time of Encounter: 09:00 - Assessment and plan (1) Hyperglycemia Current Visit: Yes Status: Acute Assessment and plan: Patient has no history of diabetes. Probably is due to steroid use. Will place patient on low-dose sliding scale coverage as he is still on steroid. (2) Hypertension Current Visit: Yes Status: Acute Assessment and plan: Continue home medication. BP is stable. Qualifiers: Hypertension type: essential hypertension Qualified Code(s): I10 - Essential (primary) hypertension (3) Lung cancer Current Visit: No Status: Chronic Assessment and plan: History of lung cancer S/P chemotherapy. We will consult oncologist to help for management. Qualifiers: Laterality: right Lung location: upper lobe of lung Qualified Code(s): C34.11 - Malignant neoplasm of upper lobe, right bronchus or lung (4) ROBERT (acute kidney injury) Current Visit: No Status: Resolved Assessment and plan: Improved after hydration. (5) Acute exacerbation of chronic obstructive airways disease Current Visit: Yes Status: Acute Assessment and plan: Patient has increased shortness of breath, consider COPD exacerbation. Patient has no wheezing now. - Continue low rate oxygen therapy. BiPAP as supportive as needed. - No signs of CO2 retention as Bicarbonate 24. - Continue antibiotic, steroid, and bronchodilator. (6) Sepsis Current Visit: Yes Status: Acute Assessment and plan: Patient has tachycardia, tachypnea, elevated lactate acid level. Consider sepsis. Patient also has blood culture positive for MRSA. - Infectious sites consider be pneumonia. - Place patient on Vanco, cefepime, and Levaquin. - Lactic acid level getting down after hydration. - Vitals are stable. - Continue closely monitor patient. Qualifiers: Sepsis type: Pneumococcus Qualified Code(s): A40.3 - Sepsis due to Streptococcus pneumoniae (7) Pneumonia Current Visit: Yes Status: Acute Assessment and plan: Patient was recently discharged from [facility]. Patient was treated with pneumonia recently. Consider healthcare associated pneumonia. - Place patient on Vanco, cefepime, and Levaquin. - Continue supportive treatment. - Follow up of blood and sputum culture. Blood culture shows MRSA. Patient is at high risk because he is on vancomycin, needed close monitoring Qualifiers: Pneumonia type: due to methicillin-resistant Staphylococcus aureus (MRSA) Laterality: unspecified laterality Lung location: unspecified part of lung Qualified Code(s): J15.212 - Pneumonia due to Methicillin resistant Staphylococcus aureus (8) Congestive heart failure (CHF) Current Visit: Yes Status: Acute Assessment and plan: Echo shows LVEF 50-55%, mild left ventricular diastolic dysfunction. Qualifiers: Congestive heart failure type: diastolic Congestive heart failure chronicity: chronic Qualified Code(s): I50.32 - Chronic diastolic (congestive ) heart failure (9) Bacteremia Current Visit: Yes Status: Acute Assessment and plan: Blood culture positive for MRSA. Patient is on vancomycin. Will repeat blood culture. - Time Spent With Patient Greater than 35 minutes - Subjective Interval history: Patient is a 86-year-old male admitted for sepsis, pneumonia, and COPD exacerbation. Possible medical history is significant for COPD, CHF, lung cancer, neuropathy, rheumatoid arthritis. Patient was seen and examined. Still mild shortness of breath, with dry cough. Denies fever, sore throat. Denies chest pain. Still need high oxygen to maintain oxygen saturation. - Constitutional Vitals: Temp Pulse Resp BP Pulse Ox 97.2 F L 84 18 114/96 98 03/26/17 10:59 03/26/17 15:24 03/26/17 11:23 03/26/17 10:59 03/26/17 11:23 General appearance: Present: mild distress, A&O X 3, answers questions appropriately - Head Head exam: Present: atraumatic, normocephalic - Eye Eye exam: Present: PERRL, conjuntiva pink, sclera anicteric Pupils: Present: PERRL - Neck Neck exam general surgery: Present: supple, trachea midline. Absent: lymphadenopathy - Respiratory Respiratory exam: Present: CTAB. Absent: accessory muscle use, rales, rhonchi, wheezes - Cardiovascular Cardiovascular exam: Present: RRR, +S1, +S2. Absent: diastolic murmur, gallop, rubs, systolic murmur - GI/Abdominal GI/Abdominal exam: Present: normal bowel sounds, soft, no peritoneal signs. Absent: distended, tenderness - Extremities Exam Extremities exam: Present: warm, radial pulses palpable and symetrical. Absent : calf tenderness, cyanotic, pedal edema - Neurological Exam Neurological exam: Present: CN II-XII intact, oriented X3, no focal deficits. Absent: pronater drift, facial droop, speech deficit - Skin Skin exam: Present: dry, intact Internal Medicine: Result - Labs CBC & Chem 7: 03/26/17 03:51 03/26/17 03:51 Labs: Short CBC 03/26/17 Range/Units 03:51 WBC 3.9 L (4.3-11.1) K/mcL Hgb 9.1 L D (12.9-16.9) g/dL Hct 28.5 L (37.5-50.1) % Plt Count 76 L (140-400) K/mcL Neutrophils # 3.4 (1.6-8.9) K/mcL BMP 03/26/17 03:51 Sodium 137 Potassium 4.0 Chloride 104 Carbon Dioxide 24 BUN 38 H Creatinine 1.22 Glucose 213 H Calcium 8.6 - ABG Interpretation ABG results: PT/INR, D-dimer PT 11.6 Seconds (9.4-12.1) 03/25/17 08:28 Consult Discharge Plan - Plan
[2017-03-26] MEDS: Vancomycin 1,000 MG in D5% in Water 250 ML IVPB SCH (16:28)
[2017-03-26] MEDS: Insulin LISPRO 300 UNITS/3 ML VIAL SQ SCH ×2 (16:29→20:44)
[2017-03-27] MEDS: Ipratropium/Albuterol Neb 3 ML IH SCH ×6 (03:39→23:11)
[2017-03-27] MEDS: MethylPREDNISolone 40 MG/ML VIAL IVP SCH ×2 (06:18→22:35)
[2017-03-27] MEDS: *HR* Heparin 5,000 UNIT/ML VIAL SQ SCH ×2 (06:18→17:13)
[2017-03-27] MEDS: Budesonide/Formoterol 80/4.5 MDI IH SCH ×2 (08:12→20:35)
[2017-03-27] MEDS: Aspirin Enteric Coated 81 MG Tablet PO SCH (10:02)
[2017-03-27] MEDS: Folic Acid 1 MG TABLET PO SCH (10:02)
[2017-03-27] MEDS: Finasteride 5 MG TABLET PO SCH (10:02)
[2017-03-27] MEDS: Famotidine 20 MG TABLET PO SCH ×2 (10:02→22:35)
[2017-03-27] MEDS: Multivit/Ca/Min/Fe/FA 1 TAB TABLET PO SCH (10:02)
[2017-03-27] MEDS: Cefepime HCl 1,000 MG in D5% in Water (Mini-Bag+) 100 ML IVPB SCH ×2 (10:03→22:36)
[2017-03-27] MEDS: Insulin LISPRO 300 UNITS/3 ML VIAL SQ SCH ×4 (10:04→22:45)
[2017-03-27] MEDS: Levofloxacin 750 MG/150 ML 750 MG/150 ML BAG IVPB SCH (10:27)
--- NOTE | 2017-03-27 11:32 | Internal Med Progress Note ---
Date of Encounter: 03/27/17 Time of Encounter: 10:30 - Assessment and plan (1) Sepsis Current Visit: Yes Status: Acute Assessment and plan: Improving His Blood cx 1/2 positive for possible MRSA - mostly contaminated will f/u on repeat blood cx ordered today remained afebrile..WBC - WNL Qualifiers: Sepsis type: Pneumococcus Qualified Code(s): A40.3 - Sepsis due to Streptococcus pneumoniae (2) Community acquired pneumonia Current Visit: No Status: Acute Assessment and plan: Mostly bacterial continuing on broad-spectrum antibiotic Cefepime , Levolfoxacin and Vanco for now encourages frequent incentive spirometry (3) Acute and chronic respiratory failure with hypoxia Current Visit: Yes Status: Acute Assessment and plan: due multi lobular community acquired pneumonia improving (4) Acute exacerbation of chronic obstructive airways disease Current Visit: Yes Status: Acute Assessment and plan: Improving.. close baseline - Continue antibiotic, and bronchodilator. - start tapering steroids (5) Congestive heart failure (CHF) Current Visit: Yes Status: Chronic Assessment and plan: Echo shows LVEF 50-55%, mild left ventricular diastolic dysfunction not in exacerbation now Qualifiers: Congestive heart failure type: diastolic Congestive heart failure chronicity: chronic Qualified Code(s): I50.32 - Chronic diastolic (congestive ) heart failure (6) Acute kidney injury Current Visit: Yes Status: Acute Assessment and plan: resolved (7) Lung cancer Current Visit: No Status: Chronic Assessment and plan: History of lung cancer S/P chemotherapy Heme Onc on board If pt SOB / Resp function worsens will do CT of chest otherwise he can f/u with Heme Onc as an out pt Qualifiers: Laterality: right Lung location: upper lobe of lung Qualified Code(s): C34.11 - Malignant neoplasm of upper lobe, right bronchus or lung (8) Rheumatoid arthritis Current Visit: No Status: Acute Assessment and plan: resumed home meds Qualifiers: Rheumatoid arthritis location: hand Rheumatoid factor presence: with rheumatoid factor Laterality: unspecified laterality Qualified Code(s): M05.749 - Rheumatoid arthritis with rheumatoid factor of unspecified hand without organ or systems involvement (9) Neuropathy Current Visit: No Status: Chronic (10) DVT prophylaxis Current Visit: No Status: Acute Assessment and plan: on SQ heparin - Subjective Interval history: Mr. 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 Now he presented to the emergency room complaining about from last couple of months he has been having progressively worsening shortness of breath, which really worsened during last 5 days. He was admitted for pneumonia wih acute COPD exacerbation. He stated he is feeling little better today, however still feels weak / lethargic and does have DEAN. Denied any CP. - Constitutional Vitals: Temp Pulse Resp BP Pulse Ox 97.6 F 76 20 136/76 88 03/27/17 10:00 03/27/17 10:00 03/27/17 10:00 03/27/17 10:00 03/27/17 10:00 General appearance: Present: A&O X 3, answers questions appropriately - Head Head exam: Present: atraumatic, normal inspection - Neck Neck exam general surgery: Present: normal inspection, supple. Absent: thyromegaly - Respiratory Respiratory exam: Present: decreased breath sounds, rhonchi (mild), wheezes. Absent: rales, respiratory distress - Cardiovascular Cardiovascular exam: Present: RRR, +S1, +S2. Absent: gallop - GI/Abdominal GI/Abdominal exam: Present: normal bowel sounds, soft. Absent: tenderness - Extremities Exam Extremities exam: Present: pedal edema (traceble pedela edema in both ankles Left > Rt) - Neurological Exam Neurological exam: Present: alert, oriented X3 - Psychiatric Psychiatric exam: Present: normal affect, normal mood Internal Medicine: Result - Labs CBC & Chem 7: 03/26/17 03:51 03/26/17 03:51 - ABG Interpretation ABG results: PT/INR, D-dimer PT 11.6 Seconds (9.4-12.1) 03/25/17 08:28 Consult Discharge Plan - Plan Referrals: Shreya Guzmán MD [Primary Care Provider] - 04/06/17 12:00 pm
--- NOTE | 2017-03-27 16:19 | Electrocardiograph Report ---
[place] [facility] Test Date: 2017-03-25 Pat Name: Pineda Ball Department: 103 Room: [facility] Gender: M Tailer Out: BELLE : 1930 Requested By: Surijt Felipe Order Number: [id number] Reading MD: Corinne Martinez DO Measurements Intervals [place] Rate: 144 P: 75 CA: 131 QRS: 16 QRSD: 82 T: 59 QT: 250 QTc: 333 Interpretive Statements SINUS TACHYCARDIA WITH FREQUENT VENTRICULAR PREMATURE COMPLEXES WITH FREQUENT SUPRAVENTRICULAR PREMATURE COMPLEXES, POSSIBLE AT INFERIOR MYOCARDIAL INFARCTION, PROBABLY OLD Electronically Signed On 03-27-2017 16:17:52 EDT by Corinne Martinez DO
[2017-03-27 16:39] LABS: Hematocrit 29.5 % (37.5-50.1); Hemoglobin 9.2 g/dL (12.9-16.9); Immature Granulocytes % 4.5 % (0-4); Lymphocytes # 0.2 K/mcL (0.6-4.6); Lymphocytes % 3.2 %; Mean Corpuscular HGB Conc 31.2 g/dL (31.6-35.5); Mean Corpuscular Hemoglobin 30.4 pg (28.0-33.3); Mean Corpuscular Volume 97.4 fL (83.0-100.0); Mean Platelet Volume 10.6 fL (9.4-12.4); Monocytes # 0.1 K/mcL (0.0-1.3); Monocytes % 2.4 %; Neutrophils # 4.2 K/mcL (1.6-8.9); Red Blood Count 3.03 M/mcL (4.19-5.50); Red Cell Distribution Width 16.6 % (11.5-14.5); Segmented Neutrophils % 89.9 %
[2017-03-27 16:43] LABS: BUN/Creatinine Ratio 38 (6-26); Blood Urea Nitrogen 48 mg/dL (8-26); Calcium 9.1 mg/dL (8.6-10.8); Carbon Dioxide 26 mEq/L (19-29); Chloride 104 mEq/L (98-109); Glucose 147 mg/dL (70-99); Osmolality,Calculated 303 (280-300); Potassium 4.3 mEq/L (3.5-4.5); Sodium 139 mEq/L (136-145); eGFR For African Americans > 60 (> 60); eGFR For Non-African Americans 54 (> 60)
[2017-03-27 17:12] LABS: Platelet Count 92 K/mcL (140-400)
[2017-03-27 18:23] LABS: Platelet Estimate Slight Decrease (Normal)
[2017-03-27] MEDS: Vancomycin 1,000 MG in D5% in Water 250 ML IVPB SCH (19:31)
[2017-03-28] MEDS: Ipratropium/Albuterol Neb 3 ML IH SCH ×7 (03:30→23:22)
[2017-03-28] MEDS: *HR* Heparin 5,000 UNIT/ML VIAL SQ SCH ×2 (06:59→16:59)
[2017-03-28] MEDS: Budesonide/Formoterol 80/4.5 MDI IH SCH ×3 (08:06→20:14)
[2017-03-28] MEDS: Insulin LISPRO 300 UNITS/3 ML VIAL SQ SCH ×4 (09:16→21:52)
[2017-03-28] MEDS: MethylPREDNISolone 40 MG/ML VIAL IVP SCH ×2 (09:25→21:48)
[2017-03-28] MEDS: Cefepime HCl 1,000 MG in D5% in Water (Mini-Bag+) 100 ML IVPB SCH ×2 (09:25→21:47)
[2017-03-28] MEDS: Finasteride 5 MG TABLET PO SCH (09:26)
[2017-03-28] MEDS: Folic Acid 1 MG TABLET PO SCH (09:26)
[2017-03-28] MEDS: Aspirin Enteric Coated 81 MG Tablet PO SCH (09:26)
[2017-03-28] MEDS: Multivit/Ca/Min/Fe/FA 1 TAB TABLET PO SCH (09:26)
[2017-03-28] MEDS: Famotidine 20 MG TABLET PO SCH ×2 (09:26→21:47)
[2017-03-28] MEDS: Vancomycin 1,000 MG in D5% in Water 250 ML IVPB SCH (16:56)
--- NOTE | 2017-03-28 17:13 | Internal Med Progress Note ---
Date of Encounter: 03/28/17 Time of Encounter: 11:00 - Assessment and plan (1) Sepsis Current Visit: Yes Status: Acute Assessment and plan: Sepsis present on admission - secondary to community-acquired pneumonia - now improving Continue IV cefepime, Levaquin, vancomycin Blood Cultures - staph epidermidis (possible contaminant) sensitive to vancomycin and Bactrim Repeat blood cultures - pending Cardiac telemetry, labs in a.m. Qualifiers: Sepsis type: Pneumococcus Qualified Code(s): A40.3 - Sepsis due to Streptococcus pneumoniae (2) Acute exacerbation of chronic obstructive airways disease Current Visit: Yes Status: Acute Assessment and plan: Acute COPD exacerbation causing acute on chronic respiratory failure with hypoxia Continue IV antibiotics, DuoNeb breathing treatment, tapering dose of steroids Patient on home oxygen 2 L nasal cannula (3) Community acquired pneumonia Current Visit: No Status: Acute Assessment and plan: Community-acquired pneumonia - likely bacterial Continue IV antibiotics, incentive spirometry (4) Neuropathy Current Visit: No Status: Chronic (5) Lung cancer Current Visit: No Status: Chronic Assessment and plan: History of lung cancer S/P chemotherapy Heme Onc on board Outpatient follow-up with oncology Qualifiers: Laterality: right Lung location: upper lobe of lung Qualified Code(s): C34.11 - Malignant neoplasm of upper lobe, right bronchus or lung (6) Rheumatoid arthritis Current Visit: No Status: Acute Assessment and plan: Continue home meds Qualifiers: Rheumatoid arthritis location: hand Rheumatoid factor presence: with rheumatoid factor Laterality: unspecified laterality Qualified Code(s): M05.749 - Rheumatoid arthritis with rheumatoid factor of unspecified hand without organ or systems involvement (7) DVT prophylaxis Current Visit: No Status: Acute Assessment and plan: Continue heparin subcutaneous - Time Spent With Patient 25 - 35 minutes - Subjective Interval history: Examined this morning. Patient is awake and alert. Not in any distress. Denies chest pain or shortness of breath. Denies abdominal pain or vomiting or diarrhea. No fever. Urine output seems to be good. Patient states he feels better. His only complaint is the neuropathy in both lower legs. No other acute events or complaints. - Constitutional Vitals: Temp Pulse Resp BP Pulse Ox 97.3 F L 76 16 131/69 92 03/28/17 15:28 03/28/17 15:28 03/28/17 15:28 03/28/17 15:28 03/28/17 15:28 General appearance: Present: A&O X 3, pleasant, no acute distress, answers questions appropriately Exam: Generalized weakness, ill-appearing, dementia - Head Head exam: Present: atraumatic - Eye Eye exam: Present: EOMI - ENT ENT exam: Present: mucous membranes moist - Neck Neck exam general surgery: Present: supple - Respiratory Respiratory exam: Present: decreased breath sounds (Both bases), rhonchi (Mild bilateral). Absent: rales, wheezes, tachypnea - Cardiovascular Cardiovascular exam: Present: RRR, +S1, +S2 - GI/Abdominal GI/Abdominal exam: Present: soft, no peritoneal signs. Absent: distended, firm , guarding, rigid, tenderness - Extremities Exam Extremities exam: Present: pedal edema (Mild bilateral lower legs), radial pulses palpable and symetrical. Absent: tenderness - Neurological Exam Neurological exam: Present: alert, oriented X3, no focal deficits. Absent: facial droop, speech deficit Additional comments: Dementia Internal Medicine: Result - Labs CBC & Chem 7: 03/27/17 16:10 03/27/17 16:10 Labs: Short CBC 03/27/17 Range/Units 16:10 WBC 4.7 (4.3-11.1) K/mcL Hgb 9.2 L (12.9-16.9) g/dL Hct 29.5 L (37.5-50.1) % Plt Count 92 L (140-400) K/mcL Neutrophils # 4.2 (1.6-8.9) K/mcL - ABG Interpretation ABG results: PT/INR, D-dimer PT 11.6 Seconds (9.4-12.1) 03/25/17 08:28 Consult Discharge Plan - Plan Referrals: Shreya Guzmán MD [Primary Care Provider] - 04/06/17 12:00 pm
[2017-03-28] MEDS: Acetaminophen 325 MG TABLET PO PRN (22:11)
[2017-03-29] MEDS: Ipratropium/Albuterol Neb 3 ML IH SCH ×7 (03:55→23:21)
[2017-03-29 05:53] LABS: Albumin 2.2 g/dL (3.5-5.0); Albumin/Globulin Ratio 0.7 (1.1-2.2); Bilirubin,Total 0.7 mg/dL (0.2-1.2); Calcium 8.9 mg/dL (8.6-10.8); Globulin 3.1 g/dL (2.4-3.5); Total Protein 5.3 g/dL (6.0-8.3)
[2017-03-29 05:56] LABS: Potassium 5.7 mEq/L (3.5-4.5)
[2017-03-29 07:00] LABS: Hematocrit 31.1 % (37.5-50.1); Hemoglobin 9.9 g/dL (12.9-16.9); Immature Platelets 4.7 % (1.1-6.1); Mean Corpuscular HGB Conc 31.8 g/dL (31.6-35.5); Mean Corpuscular Volume 97.5 fL (83.0-100.0); Mean Platelet Volume 10.5 fL (9.4-12.4); Monocytes # 0.1 K/mcL (0.0-1.3); Red Blood Count 3.19 M/mcL (4.19-5.50); Red Cell Distribution Width 16.5 % (11.5-14.5)
[2017-03-29 07:02] LABS: Platelet Count 69 K/mcL (140-400)
[2017-03-29 07:36] LABS: Lymphocytes # 0.4 K/mcL (0.6-4.6); Neutrophils # 3.4 K/mcL (1.6-8.9); Platelet Estimate Decreased (Normal)
[2017-03-29 07:37] LABS: Toxic Granulation Present (Not Present)
[2017-03-29] MEDS: *HR* Heparin 5,000 UNIT/ML VIAL SQ SCH ×2 (08:40→17:20)
[2017-03-29] MEDS: Famotidine 20 MG TABLET PO SCH ×2 (10:20→21:04)
[2017-03-29] MEDS: Aspirin Enteric Coated 81 MG Tablet PO SCH (10:20)
[2017-03-29] MEDS: Finasteride 5 MG TABLET PO SCH (10:20)
[2017-03-29] MEDS: Levofloxacin 750 MG/150 ML 750 MG/150 ML BAG IVPB SCH (10:22)
[2017-03-29] MEDS: Cefepime HCl 1,000 MG in D5% in Water (Mini-Bag+) 100 ML IVPB SCH ×2 (10:24→21:04)
[2017-03-29] MEDS: Folic Acid 1 MG TABLET PO SCH (10:25)
[2017-03-29] MEDS: MethylPREDNISolone 40 MG/ML VIAL IVP SCH ×2 (10:26→21:04)
[2017-03-29] MEDS: Insulin LISPRO 300 UNITS/3 ML VIAL SQ SCH ×4 (10:29→21:15)
[2017-03-29] MEDS: Multivit/Ca/Min/Fe/FA 1 TAB TABLET PO SCH (10:30)
[2017-03-29] MEDS: Budesonide/Formoterol 80/4.5 MDI IH SCH ×2 (10:58→20:24)
[2017-03-29] MEDS: Acetaminophen 325 MG TABLET PO PRN (15:08)
--- NOTE | 2017-03-29 16:15 | Internal Med Progress Note ---
Date of Encounter: 03/29/17 Time of Encounter: 11:10 - Assessment and plan (1) Sepsis Current Visit: Yes Status: Acute Assessment and plan: Sepsis present on admission - secondary to community-acquired pneumonia - now improving Continue IV Cefepime, Levaquin Blood Cultures - staph epidermidis (possible contaminant) sensitive to Vancomycin and Bactrim Repeat blood cultures - negative Chest x-ray - small bilateral pleural effusions with mild interstitial pulmonary edema, COPD and emphysema, multiple chronic thoracic spine compression fractures Cardiac telemetry, labs in a.m. Anticipated discharge to [facility] in a.m. Qualifiers: Sepsis type: Pneumococcus Qualified Code(s): A40.3 - Sepsis due to Streptococcus pneumoniae (2) Acute exacerbation of chronic obstructive airways disease Current Visit: Yes Status: Acute Assessment and plan: Acute COPD exacerbation causing acute on chronic respiratory failure with hypoxia Continue IV antibiotics, DuoNeb breathing treatment, tapering dose of steroids Patient on home oxygen 2 L nasal cannula (3) Community acquired pneumonia Current Visit: No Status: Acute Assessment and plan: Community-acquired pneumonia - likely bacterial - now improving Continue IV antibiotics, incentive spirometry (4) Neuropathy Current Visit: No Status: Chronic (5) Lung cancer Current Visit: No Status: Chronic Assessment and plan: History of lung cancer S/P chemotherapy Heme Onc on board Outpatient follow-up with oncology Qualifiers: Laterality: right Lung location: upper lobe of lung Qualified Code(s): C34.11 - Malignant neoplasm of upper lobe, right bronchus or lung (6) Rheumatoid arthritis Current Visit: No Status: Acute Assessment and plan: Continue home meds Qualifiers: Rheumatoid arthritis location: hand Rheumatoid factor presence: with rheumatoid factor Laterality: unspecified laterality Qualified Code(s): M05.749 - Rheumatoid arthritis with rheumatoid factor of unspecified hand without organ or systems involvement (7) DVT prophylaxis Current Visit: No Status: Acute Assessment and plan: Continue heparin subcutaneous - Time Spent With Patient 25 - 35 minutes - Subjective Interval history: Examined this morning. Patient is awake and alert. Not in any distress. Sitting up comfortably in bed. Denies chest pain or shortness of breath. Denies abdominal pain or vomiting or diarrhea. No fever. Urine output seems to be good. Patient states he feels better. No other acute events or complaints. Patient's potassium is 5.7 and creatinine has bumped up to 1.75. He does not seem dehydrated clinically. He is tolerating oral diet well. Anticipate discharge to [facility]CF soon. - Constitutional Vitals: Temp Pulse Resp BP Pulse Ox 97.6 F 78 16 117/54 95 03/29/17 14:58 03/29/17 14:58 03/29/17 14:58 03/29/17 14:58 03/29/17 14:58 General appearance: Present: A&O X 3, pleasant, no acute distress, underweight, answers questions appropriately - Head Head exam: Present: atraumatic - Eye Eye exam: Present: EOMI - ENT ENT exam: Present: mucous membranes moist - Neck Neck exam general surgery: Present: supple - Respiratory Respiratory exam: Present: decreased breath sounds (In both bases), rhonchi ( Mild bilateral). Absent: rales, wheezes, tachypnea - Cardiovascular Cardiovascular exam: Present: RRR, +S1, +S2 - GI/Abdominal GI/Abdominal exam: Present: soft, no peritoneal signs. Absent: distended, firm , guarding, rigid, tenderness - Extremities Exam Extremities exam: Present: radial pulses palpable and symetrical. Absent: cyanotic, pedal edema, tenderness - Neurological Exam Neurological exam: Present: alert, oriented X3, no focal deficits. Absent: facial droop, speech deficit Internal Medicine: Result - Labs CBC & Chem 7: 03/29/17 06:11 03/29/17 04:28 Labs: Short CBC 03/29/17 Range/Units 06:11 WBC 3.9 L (4.3-11.1) K/mcL Hgb 9.9 L (12.9-16.9) g/dL Hct 31.1 L (37.5-50.1) % Plt Count 69 L (140-400) K/mcL Neutrophils # 3.4 (1.6-8.9) K/mcL BMP 03/29/17 04:28 Sodium 140 Potassium 5.7 H D Chloride 113 H Carbon Dioxide 21 BUN 48 H Creatinine 1.75 H Glucose 181 H Calcium 8.9 Liver Function 03/29/17 Range/Units 04:28 Total Bilirubin 0.7 (0.2-1.2) mg/dL AST 46 H (5-34) Units/L ALT 62 H (0-55) Units/L Alkaline Phosphatase 79 (38-126) Units/L Albumin 2.2 L (3.5-5.0) g/dL - ABG Interpretation ABG results: PT/INR, D-dimer PT 11.6 Seconds (9.4-12.1) 03/25/17 08:28 Consult Discharge Plan - Plan Referrals: Shreya Guzmán MD [Primary Care Provider] - 04/06/17 12:00 pm Bakari Fernandez MD [Partnered Physician] - 04/03/17 3:20 pm
[2017-03-30] MEDS: Ipratropium/Albuterol Neb 3 ML IH SCH ×6 (04:10→23:06)
[2017-03-30] MEDS: *HR* Heparin 5,000 UNIT/ML VIAL SQ SCH (06:22)
[2017-03-30] MEDS: Budesonide/Formoterol 80/4.5 MDI IH SCH ×2 (07:56→20:14)
[2017-03-30] MEDS: Multivit/Ca/Min/Fe/FA 1 TAB TABLET PO SCH (09:04)
[2017-03-30] MEDS: Insulin LISPRO 300 UNITS/3 ML VIAL SQ SCH ×4 (09:04→21:40)
[2017-03-30] MEDS: Aspirin Enteric Coated 81 MG Tablet PO SCH (09:05)
[2017-03-30] MEDS: Cefepime HCl 1,000 MG in D5% in Water (Mini-Bag+) 100 ML IVPB SCH ×2 (09:05→21:32)
[2017-03-30] MEDS: Finasteride 5 MG TABLET PO SCH (09:05)
[2017-03-30] MEDS: Folic Acid 1 MG TABLET PO SCH (09:05)
[2017-03-30] MEDS: Famotidine 20 MG TABLET PO SCH ×2 (09:05→21:31)
[2017-03-30] MEDS: MethylPREDNISolone 40 MG/ML VIAL IVP SCH ×2 (09:06→21:32)
[2017-03-30] MEDS ORDERED: Aminoglycoside Consult 1 EACH MC ONE (09:07)
--- NOTE | 2017-03-30 15:02 | Internal Med Progress Note ---
Date of Encounter: 03/30/17 Time of Encounter: 09:45 - Assessment and plan (1) Sepsis Current Visit: Yes Status: Acute Assessment and plan: Sepsis present on admission - secondary to community-acquired pneumonia - now improved Continue IV Cefepime, Levaquin Blood Cultures - staph epidermidis (probable contaminant) sensitive to Vancomycin and Bactrim Repeat blood cultures - negative Chest x-ray - small bilateral pleural effusions with mild interstitial pulmonary edema, COPD and emphysema, multiple chronic thoracic spine compression fractures Cardiac telemetry, labs in a.m. Anticipated discharge to [facility] soon Qualifiers: Sepsis type: Pneumococcus Qualified Code(s): A40.3 - Sepsis due to Streptococcus pneumoniae (2) ROBERT (acute kidney injury) Current Visit: Yes Status: Resolved Assessment and plan: Acute kidney injury - creatinine at 1.75 and GFR at 37 Likely multifactorial - secondary to sepsis and also due to IV antibiotic use Morning labs are still pending Monitor renal function closely (3) Acute exacerbation of chronic obstructive airways disease Current Visit: Yes Status: Acute Assessment and plan: Acute COPD exacerbation causing acute on chronic respiratory failure with hypoxia - now improved Continue IV antibiotics, DuoNeb breathing treatment, tapering dose of steroids Patient on home oxygen 2 L nasal cannula Patient requires high flow oxygen in the hospital (4) Community acquired pneumonia Current Visit: Yes Status: Acute Assessment and plan: Community-acquired pneumonia - likely bacterial - now improving Continue IV antibiotics, incentive spirometry, supplemental O2 via nasal cannula Qualifiers: Lung location: unspecified part of lung Qualified Code(s): J18.9 - Pneumonia, unspecified organism (5) Neuropathy Current Visit: No Status: Chronic (6) Lung cancer Current Visit: No Status: Chronic Assessment and plan: History of lung cancer S/P chemotherapy Heme Onc on board Outpatient follow-up with oncology Qualifiers: Laterality: right Lung location: upper lobe of lung Qualified Code(s): C34.11 - Malignant neoplasm of upper lobe, right bronchus or lung (7) Rheumatoid arthritis Current Visit: No Status: Acute Assessment and plan: Continue home meds Qualifiers: Rheumatoid arthritis location: hand Rheumatoid factor presence: with rheumatoid factor Laterality: unspecified laterality Qualified Code(s): M05.749 - Rheumatoid arthritis with rheumatoid factor of unspecified hand without organ or systems involvement (8) DVT prophylaxis Current Visit: No Status: Acute Assessment and plan: Continue SCDs, ambulate - Time Spent With Patient 25 - 35 minutes - Subjective Interval history: Examined this morning. Patient is awake and alert. Not in any distress. Sitting up comfortably in bed. Denies chest pain. Complains of mild shortness of breath, which he says is usual for him. Denies abdominal pain or vomiting or diarrhea. No fever. Urine output seems to be good. No other acute events or complaints. Patient's potassium is 5.7 and creatinine has bumped up to 1.75. He does not seem dehydrated clinically. He is tolerating oral diet well. Anticipate discharge to [facility] soon. Morning labs are still pending. - Constitutional Vitals: Temp Pulse Resp BP Pulse Ox 97.9 F 90 15 134/74 91 03/30/17 11:36 03/30/17 11:36 03/30/17 11:43 03/30/17 11:36 03/30/17 11:43 General appearance: Present: A&O X 3, pleasant, no acute distress, underweight, answers questions appropriately - Head Head exam: Present: atraumatic - Eye Eye exam: Present: EOMI - ENT ENT exam: Present: mucous membranes moist - Neck Neck exam general surgery: Present: supple - Respiratory Respiratory exam: Present: accessory muscle use, decreased breath sounds ( Slightly decreased in both bases), rhonchi (Mild bilateral). Absent: rales, wheezes, tachypnea - Cardiovascular Cardiovascular exam: Present: RRR, +S1, +S2 - GI/Abdominal GI/Abdominal exam: Present: soft. Absent: distended, firm, guarding, tenderness - Extremities Exam Extremities exam: Present: radial pulses palpable and symetrical. Absent: cyanotic, pedal edema, tenderness - Neurological Exam Neurological exam: Present: alert, oriented X3, no focal deficits. Absent: facial droop, speech deficit - Skin Additional comments: Extensive chronic ecchymosis in both arms, multiple chronic skin tears Internal Medicine: Result - Labs CBC & Chem 7: 03/29/17 06:11 03/29/17 04:28 - ABG Interpretation ABG results: PT/INR, D-dimer PT 11.6 Seconds (9.4-12.1) 03/25/17 08:28 - VTE Documentation of Mechanical Device: Intermittent pneumatic compression device Consult Discharge Plan - Plan Referrals: Shreya Guzmán MD [Primary Care Provider] - 04/06/17 12:00 pm Bakari Fernandez MD [Partnered Physician] - 04/03/17 3:20 pm
[2017-03-30] MEDS: Acetaminophen 325 MG TABLET PO PRN (21:39)
[2017-03-31 03:28] LABS: Hematocrit 27.4 % (37.5-50.1); Hemoglobin 8.8 g/dL (12.9-16.9); Mean Corpuscular HGB Conc 32.1 g/dL (31.6-35.5)
[2017-03-31 03:30] LABS: Immature Platelets 5.9 % (1.1-6.1); Mean Corpuscular Hemoglobin 30.9 pg (28.0-33.3); Mean Corpuscular Volume 96.1 fL (83.0-100.0); Mean Platelet Volume 12.2 fL (9.4-12.4); Nucleated Red Blood Cells 0.7 /100 WBC (0); Red Blood Count 2.85 M/mcL (4.19-5.50)
[2017-03-31] MEDS: Ipratropium/Albuterol Neb 3 ML IH SCH ×5 (03:42→19:58)
[2017-03-31 03:55] LABS: BUN/Creatinine Ratio 47 (6-26); Blood Urea Nitrogen 48 mg/dL (8-26); Carbon Dioxide 28 mEq/L (19-29); Chloride 107 mEq/L (98-109); Glucose 197 mg/dL (70-99); Osmolality,Calculated 308 (280-300); Sodium 140 mEq/L (136-145); eGFR For African Americans > 60 (> 60); eGFR For Non-African Americans > 60 (> 60)
[2017-03-31 04:41] LABS: Platelet Count 49 K/mcL (140-400)
[2017-03-31 05:37] LABS: Lymphocytes # 0.1 K/mcL (0.6-4.6); Monocytes # 0.4 K/mcL (0.0-1.3); Neutrophils # 5.4 K/mcL (1.6-8.9); Platelet Estimate Decreased (Normal); Toxic Granulation Present (Not Present)
[2017-03-31] MEDS: Budesonide/Formoterol 80/4.5 MDI IH SCH ×2 (07:47→19:58)
[2017-03-31] MEDS: Finasteride 5 MG TABLET PO SCH (07:57)
[2017-03-31] MEDS: Folic Acid 1 MG TABLET PO SCH (07:58)
[2017-03-31] MEDS: Famotidine 20 MG TABLET PO SCH ×2 (07:58→21:02)
[2017-03-31] MEDS: Aspirin Enteric Coated 81 MG Tablet PO SCH (07:58)
[2017-03-31] MEDS: MethylPREDNISolone 40 MG/ML VIAL IVP SCH ×2 (07:59→21:02)
[2017-03-31] MEDS: Levofloxacin 750 MG/150 ML 750 MG/150 ML BAG IVPB SCH (07:59)
[2017-03-31] MEDS: Insulin LISPRO 300 UNITS/3 ML VIAL SQ SCH ×4 (07:59→21:09)
[2017-03-31] MEDS: Multivit/Ca/Min/Fe/FA 1 TAB TABLET PO SCH (08:00)
[2017-03-31] MEDS: Cefepime HCl 1,000 MG in D5% in Water (Mini-Bag+) 100 ML IVPB SCH ×2 (09:46→21:02)
[2017-03-31] MEDS: *HR* HYDROcodone/Acet 5/325 mg TABLET PO PRN (09:51)
--- NOTE | 2017-03-31 10:13 | Oncology Inp Progress Note ---
Date of Encounter: 03/31/17 Time of Encounter: 10:10 (1) Lung cancer Current Visit: No Status: Chronic Assessment and plan: - I agree that his current respiratory issues are more likely secondary to COPD exacerbation ( in view of the fluctuation of his symptoms), but if his condition deteriorates consider CT chest to rule out progression of his lung adenocarcinoma. - As discussed previosly, he reports a history of brain lesion suspicious for metastatic disease, for which he underwent treatment with cybarknife, and with a follow up brain imaging revealing resolution of it. No clinical findings suggestive of progression of brain lesion at this time. - Upon discharge, he will need a short follow up with his primary oncologist Dr. Bakari Macias for clinical and radiological surveillance. - He will need a brain MRI ( in view of his history of presumptive brain metastatic lesion) along with a re staging CT chest, although if his hospitalization gets prolonged, consider to complete them as inpatient. Qualifiers: Laterality: right Lung location: upper lobe of lung Qualified Code(s): C34.11 - Malignant neoplasm of upper lobe, right bronchus or lung (2) Pancytopenia Current Visit: Yes Status: Acute Assessment and plan: -The intermittent pattern, with normal recent values makes MDS less likely. Probably secondary to Methotrexate, with recent drop secondary to sepsis/PNA. Platelet count dropped to 49K today, but there are not bleeding events. I would recommend close observation with daily CBC for now. - Supportive management with transfusion of blood products of Hb drops below 7 g /dl, or platelets drop below 20 ( or 50K if there is associated bleeding). Oncology: Subj Interval history: Chief complaint: shortness of breath. Mr. Ball denies significant overnight events. Currently on 6 L nasal canula. reports that o2 requirements are lower at home. There is some mild distress while talking, but able to speak in full sentences. Feels that his breathing difficulties fluctuate, but overall has not improved significantly. Review of systems: Denies CP, nausea, vomiting. - Constitutional Vitals: Vital Signs Temp Pulse Resp BP Pulse Ox 03/31/17 07:00 97.6 F 62 18 145/72 100 03/31/17 03:45 97.4 F L 82 19 126/63 95 03/30/17 23:48 98.2 F 84 20 124/61 93 03/30/17 22:10 91 03/30/17 20:14 18 94 03/30/17 19:40 97.8 F 88 18 119/56 92 03/30/17 18:00 97.5 F L 88 20 120/59 92 03/30/17 17:01 18 90 03/30/17 15:19 98.0 F 90 18 121/60 90 03/30/17 11:43 15 91 03/30/17 11:36 97.9 F 90 17 134/74 92 Intake and Output 03/30/17 03/31/17 03/31/17 23:59 07:59 15:59 Intake Total 0 / 0 490 / 490 Output Total 100 / 100 400 / 400 200 / 200 Balance -100 / -100 -400 / -400 290 / 290 Intake: IV Fluids 250 / 250 Maxipime 1,000 MG In 100 / 100 Dextrose 5% (Minibag+) 100 ML 100 ML @ 200 mls/ hr IVPB Q12H [facility] Rx#: [id number] Levaquin Premix 750mg/150 150 / 150 mL 750 mg In 150 ml @ 100 mls/hr IVPB Q48H [facility] Rx#:[id number] Oral 0 / 0 240 / 240 Output: Urine 100 / 100 400 / 400 200 / 200 Other: Meal Breakfast Percent of Meal Consumed 90% Weight 67.8 kg 67.8 kg Blood Glucose* 248 171 171 Patient Weight 03/31/17 23:59 Weight 67.8 kg - Head Head exam: Present: normal inspection - Neck Neck exam: Present: normal inspection - Respiratory Additional comments: Clear anteriorly. mild use of accessory respiratory muscles. - Cardiovascular Cardiovascular exam: Present: RRR - GI/Abdominal GI/Abdominal exam: Present: normal bowel sounds. Absent: organomegaly, rebound Oncology: Obj Data - Labs CBC & Chem 7: 03/31/17 03:03 03/31/17 03:37 Labs: Laboratory Results - last 24 hr 03/31/17 03/31/17 03/31/17 03:03 03:03 03:37 WBC 5.9 D RBC 2.85 L Hgb 8.8 L Hct 27.4 L MCV 96.1 MCH 30.9 MCHC 32.1 RDW 17.0 H Plt Count 49 L MPV 12.2 Seg Neutrophils % 90.0 Band Neutrophils % 2.0 Lymphocytes % 2.0 Monocytes % 6.0 Neutrophils # 5.4 Lymphocytes # 0.1 L Monocytes # 0.4 Nucleated RBCs/100 WBC 0.7 H Toxic Granulation Present A Platelet Estimate Decreased L Immature Plt Fraction 5.9 Sodium 140 Potassium 5.0 H Chloride 107 Carbon Dioxide 28 BUN 48 H Creatinine 1.03 Est GFR ( Amer) > 60 Est GFR (Non-Af Amer) > 60 BUN/Creatinine Ratio 47 H Glucose 197 H Calculated Osmolality 308 H Calcium 9.0 Specimen Rejected Hemolyzed - ABG Interpretation ABG results: PT/INR, D-dimer PT 11.6 Seconds (9.4-12.1) 03/25/17 08:28 Consult Discharge Plan - Plan Referrals: Shreya Guzmán MD [Primary Care Provider] - 04/06/17 12:00 pm Bakari Fernandez MD [Partnered Physician] - 04/03/17 3:20 pm
--- NOTE | 2017-03-31 12:31 | Internal Med Progress Note ---
Date of Encounter: 04/01/17 Time of Encounter: 12:29 - Assessment and plan (1) Lung cancer Current Visit: No Status: Chronic Assessment and plan: History of lung cancer S/P chemotherapy Heme Onc on board Outpatient follow-up with oncology Qualifiers: Laterality: right Lung location: upper lobe of lung Qualified Code(s): C34.11 - Malignant neoplasm of upper lobe, right bronchus or lung (2) Community acquired pneumonia Current Visit: Yes Status: Acute Assessment and plan: Community-acquired pneumonia - likely bacterial - now improving Continue IV antibiotics, incentive spirometry, supplemental O2 via nasal cannula Qualifiers: Lung location: unspecified part of lung Qualified Code(s): J18.9 - Pneumonia, unspecified organism (3) ROBERT (acute kidney injury) Current Visit: Yes Status: Resolved Assessment and plan: Acute kidney injury - creatinine at 1.75 and GFR at 37 Likely multifactorial - secondary to sepsis and also due to IV antibiotic use Morning labs are still pending Monitor renal function closely (4) Sepsis Current Visit: Yes Status: Acute Assessment and plan: Sepsis present on admission - secondary to community-acquired pneumonia - now improved Continue IV Cefepime, Levaquin Blood Cultures - staph epidermidis (probable contaminant) sensitive to Vancomycin and Bactrim Repeat blood cultures - negative Chest x-ray - small bilateral pleural effusions with mild interstitial pulmonary edema, COPD and emphysema, multiple chronic thoracic spine compression fractures Cardiac telemetry, labs in a.m. Anticipated discharge to [facility] soon Qualifiers: Sepsis type: Pneumococcus Qualified Code(s): A40.3 - Sepsis due to Streptococcus pneumoniae (5) Acute and chronic respiratory failure with hypoxia Current Visit: Yes Status: Acute Assessment and plan: due multi lobular community acquired pneumonia improving (6) Congestive heart failure (CHF) Current Visit: Yes Status: Chronic Assessment and plan: Echo shows LVEF 50-55%, mild left ventricular diastolic dysfunction not in exacerbation now Qualifiers: Congestive heart failure type: diastolic Congestive heart failure chronicity: chronic Qualified Code(s): I50.32 - Chronic diastolic (congestive ) heart failure (7) Pancytopenia Current Visit: Yes Status: Acute (8) Pneumonia Current Visit: Yes Status: Acute Assessment and plan: Patient was recently discharged from [facility]. Patient was treated with pneumonia recently. Consider healthcare associated pneumonia. - Place patient on Vanco, cefepime, and Levaquin. - Continue supportive treatment. - Follow up of blood and sputum culture. Blood culture shows MRSA. Patient is at high risk because he is on vancomycin, needed close monitoring Qualifiers: Pneumonia type: due to methicillin-resistant Staphylococcus aureus (MRSA) Laterality: unspecified laterality Lung location: unspecified part of lung Qualified Code(s): J15.212 - Pneumonia due to Methicillin resistant Staphylococcus aureus - Subjective Interval history: Mr. 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 Now he presented to the emergency room complaining about from last couple of months he has been having progressively worsening shortness of breath, which really worsened during last 5 days - Constitutional Vitals: Temp Pulse Resp BP Pulse Ox 97.4 F L 82 20 151/77 95 03/31/17 11:23 03/31/17 11:23 03/31/17 11:23 03/31/17 11:23 03/31/17 11:23 General appearance: Present: A&O X 3, pleasant, no acute distress, underweight, answers questions appropriately - Head Head exam: Present: atraumatic, normocephalic - Eye Eye exam: Present: PERRL, conjuntiva pink, sclera anicteric Pupils: Present: PERRL - Neck Neck exam general surgery: Present: supple, trachea midline. Absent: lymphadenopathy - Respiratory Respiratory exam: Present: CTAB. Absent: accessory muscle use, rales, rhonchi, wheezes - Cardiovascular Cardiovascular exam: Present: RRR, +S1, +S2. Absent: diastolic murmur, gallop, rubs, systolic murmur - GI/Abdominal GI/Abdominal exam: Present: normal bowel sounds, soft, no peritoneal signs. Absent: distended, tenderness - Extremities Exam Extremities exam: Present: warm, radial pulses palpable and symetrical. Absent : calf tenderness, cyanotic, pedal edema - Neurological Exam Neurological exam: Present: CN II-XII intact, oriented X3, no focal deficits. Absent: pronater drift, facial droop, speech deficit - Skin Skin exam: Present: dry, intact Internal Medicine: Result - Labs CBC & Chem 7: 03/31/17 03:03 03/31/17 03:37 Labs: Short CBC 03/31/17 Range/Units 03:03 WBC 5.9 D (4.3-11.1) K/mcL Hgb 8.8 L (12.9-16.9) g/dL Hct 27.4 L (37.5-50.1) % Plt Count 49 L (140-400) K/mcL Neutrophils # 5.4 (1.6-8.9) K/mcL BMP 03/31/17 03:37 Sodium 140 Potassium 5.0 H Chloride 107 Carbon Dioxide 28 BUN 48 H Creatinine 1.03 Glucose 197 H Calcium 9.0 - ABG Interpretation ABG results: PT/INR, D-dimer PT 11.6 Seconds (9.4-12.1) 03/25/17 08:28 - VTE Documentation of Mechanical Device: Graduated compression elastic hosiery Consult Discharge Plan - Plan Referrals: Shreya Guzmán MD [Primary Care Provider] - 04/06/17 12:00 pm Bakari Fernandez MD [Partnered Physician] - 04/03/17 3:20 pm
[2017-04-01] MEDS: Ipratropium/Albuterol Neb 3 ML IH SCH ×7 (00:05→23:34)
[2017-04-01] MEDS: Budesonide/Formoterol 80/4.5 MDI IH SCH (07:54)
[2017-04-01] MEDS: Multivit/Ca/Min/Fe/FA 1 TAB TABLET PO SCH (08:01)
[2017-04-01] MEDS: Aspirin Enteric Coated 81 MG Tablet PO SCH (08:01)
[2017-04-01] MEDS: Famotidine 20 MG TABLET PO SCH ×2 (08:01→20:48)
[2017-04-01] MEDS: Finasteride 5 MG TABLET PO SCH (08:02)
[2017-04-01] MEDS: Folic Acid 1 MG TABLET PO SCH (08:02)
[2017-04-01] MEDS: MethylPREDNISolone 40 MG/ML VIAL IVP SCH ×2 (08:02→20:49)
[2017-04-01] MEDS: Acetaminophen 325 MG TABLET PO PRN (08:03)
[2017-04-01] MEDS: Insulin LISPRO 300 UNITS/3 ML VIAL SQ SCH ×4 (08:04→20:45)
[2017-04-01] MEDS: Cefepime HCl 1,000 MG in D5% in Water (Mini-Bag+) 100 ML IVPB SCH ×2 (12:20→21:44)
[2017-04-01] MEDS: *HR* Methotrexate 2.5 MG TABLET PO SCH (16:52)
--- NOTE | 2017-04-01 17:23 | Internal Med Progress Note ---
Date of Encounter: 04/01/17 Time of Encounter: 17:21 - Assessment and plan (1) Sepsis Current Visit: Yes Status: Acute Qualifiers: Sepsis type: Pneumococcus Qualified Code(s): A40.3 - Sepsis due to Streptococcus pneumoniae (2) Acute and chronic respiratory failure with hypoxia Current Visit: Yes Status: Acute (3) Pneumonia Current Visit: Yes Status: Acute Qualifiers: Pneumonia type: due to methicillin-resistant Staphylococcus aureus (MRSA) Laterality: unspecified laterality Lung location: unspecified part of lung Qualified Code(s): J15.212 - Pneumonia due to Methicillin resistant Staphylococcus aureus (4) RBOERT (acute kidney injury) Current Visit: Yes Status: Resolved (5) Congestive heart failure (CHF) Current Visit: Yes Status: Chronic Qualifiers: Congestive heart failure type: diastolic Congestive heart failure chronicity: chronic Qualified Code(s): I50.32 - Chronic diastolic (congestive ) heart failure (6) Pancytopenia Current Visit: Yes Status: Acute (7) Lung cancer Current Visit: No Status: Chronic Qualifiers: Laterality: right Lung location: upper lobe of lung Qualified Code(s): C34.11 - Malignant neoplasm of upper lobe, right bronchus or lung - Subjective Interval history: Mr. 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 Now he presented to the emergency room complaining about from last couple of months he has been having progressively worsening shortness of breath, which really worsened during last 5 days Much improved today as lying in bed but is still on 6 L with oxygen saturation 93%. I suspect on ambulation and he will drop oxygen more. My feeling is that he has been tapered on steroids prematurely therefore I will increase dose to expedite the recovery period overall looks much better. - Constitutional Vitals: Temp Pulse Resp BP Pulse Ox 97.9 F 97 16 109/58 91 04/01/17 16:00 04/01/17 16:00 04/01/17 16:33 04/01/17 16:00 04/01/17 16:33 General appearance: Present: A&O X 3, pleasant, no acute distress, underweight, answers questions appropriately - Head Head exam: Present: atraumatic, normocephalic - Eye Eye exam: Present: PERRL, conjuntiva pink, sclera anicteric Pupils: Present: PERRL - Neck Neck exam general surgery: Present: supple, trachea midline. Absent: lymphadenopathy - Respiratory Respiratory exam: Present: CTAB. Absent: accessory muscle use, rales, rhonchi, wheezes - Cardiovascular Cardiovascular exam: Present: RRR, +S1, +S2. Absent: diastolic murmur, gallop, rubs, systolic murmur - GI/Abdominal GI/Abdominal exam: Present: normal bowel sounds, soft, no peritoneal signs. Absent: distended, tenderness - Extremities Exam Extremities exam: Present: warm, radial pulses palpable and symetrical. Absent : calf tenderness, cyanotic, pedal edema - Neurological Exam Neurological exam: Present: CN II-XII intact, oriented X3, no focal deficits. Absent: pronater drift, facial droop, speech deficit - Skin Skin exam: Present: dry, intact Internal Medicine: Result - Labs CBC & Chem 7: 03/31/17 03:03 03/31/17 03:37 - ABG Interpretation ABG results: PT/INR, D-dimer PT 11.6 Seconds (9.4-12.1) 03/25/17 08:28 - VTE Documentation of Mechanical Device: Graduated compression elastic hosiery Consult Discharge Plan - Plan Referrals: Shreya Guzmán MD [Primary Care Provider] - 04/06/17 12:00 pm Bakari Fernandez MD [Partnered Physician] - 04/03/17 3:20 pm
[2017-04-01] MEDS: *HR* HYDROcodone/Acet 5/325 mg TABLET PO PRN (20:46)
[2017-04-02] MEDS: Ipratropium/Albuterol Neb 3 ML IH SCH ×6 (03:12→23:51)
[2017-04-02 04:55] LABS: Alanine Aminotransferase 45 Units/L (0-55); Albumin 2.2 g/dL (3.5-5.0); Albumin/Globulin Ratio 0.9 (1.1-2.2); Alkaline Phosphatase 63 Units/L (38-126); Aspartate Amino Transferase 19 Units/L (5-34); BUN/Creatinine Ratio 54 (6-26); Bilirubin,Total 0.6 mg/dL (0.2-1.2); Blood Urea Nitrogen 56 mg/dL (8-26); Calcium 8.7 mg/dL (8.6-10.8); Carbon Dioxide 29 mEq/L (19-29); Chloride 106 mEq/L (98-109); Globulin 2.4 g/dL (2.4-3.5); Glucose 244 mg/dL (70-99); Osmolality,Calculated 312 (280-300); Potassium 4.7 mEq/L (3.5-4.5); Sodium 139 mEq/L (136-145); Total Protein 4.6 g/dL (6.0-8.3); eGFR For African Americans > 60 (> 60); eGFR For Non-African Americans > 60 (> 60)
[2017-04-02 04:56] LABS: Hematocrit 26.6 % (37.5-50.1); Hemoglobin 8.2 g/dL (12.9-16.9); Immature Platelets 7.5 % (1.1-6.1); Mean Corpuscular HGB Conc 30.8 g/dL (31.6-35.5); Mean Corpuscular Hemoglobin 30.7 pg (28.0-33.3); Mean Corpuscular Volume 99.6 fL (83.0-100.0); Nucleated Red Blood Cells 0.5 /100 WBC (0); Red Blood Count 2.67 M/mcL (4.19-5.50); Red Cell Distribution Width 17.7 % (11.5-14.5)
[2017-04-02 05:24] LABS: Platelet Count 26 K/mcL (140-400)
[2017-04-02 05:35] LABS: Lymphocytes # 0.4 K/mcL (0.6-4.6); Monocytes # 0.4 K/mcL (0.0-1.3); Neutrophils # 5.7 K/mcL (1.6-8.9)
[2017-04-02 05:36] LABS: Platelet Estimate Marked Decrease (Normal); Toxic Granulation Present (Not Present)
[2017-04-02] MEDS: Insulin LISPRO 300 UNITS/3 ML VIAL SQ SCH ×4 (12:57→21:43)
[2017-04-02] MEDS: levoFLOXacin 750 MG TABLET PO SCH (15:13)
[2017-04-02] MEDS: Aspirin Enteric Coated 81 MG Tablet PO SCH (15:13)
[2017-04-02] MEDS: Multivit/Ca/Min/Fe/FA 1 TAB TABLET PO SCH (15:14)
[2017-04-02] MEDS: MethylPREDNISolone 40 MG/ML VIAL IVP SCH ×2 (15:14→21:54)
[2017-04-02] MEDS: Folic Acid 1 MG TABLET PO SCH (15:14)
[2017-04-02] MEDS: Cefepime HCl 1,000 MG in D5% in Water (Mini-Bag+) 100 ML IVPB SCH ×2 (15:14→21:53)
[2017-04-02] MEDS: Finasteride 5 MG TABLET PO SCH (15:14)
[2017-04-02] MEDS: Famotidine 20 MG TABLET PO SCH ×2 (15:21→21:52)
--- NOTE | 2017-04-02 16:13 | Internal Med Progress Note ---
Date of Encounter: 04/02/17 Time of Encounter: 16:08 - Assessment and plan (1) Sepsis Current Visit: Yes Status: Acute Qualifiers: Sepsis type: Pneumococcus Qualified Code(s): A40.3 - Sepsis due to Streptococcus pneumoniae (2) Acute and chronic respiratory failure with hypoxia Current Visit: Yes Status: Acute (3) Pneumonia Current Visit: Yes Status: Acute Qualifiers: Pneumonia type: due to methicillin-resistant Staphylococcus aureus (MRSA) Laterality: unspecified laterality Lung location: unspecified part of lung Qualified Code(s): J15.212 - Pneumonia due to Methicillin resistant Staphylococcus aureus (4) ROBERT (acute kidney injury) Current Visit: Yes Status: Resolved (5) Congestive heart failure (CHF) Current Visit: Yes Status: Chronic Qualifiers: Congestive heart failure type: diastolic Congestive heart failure chronicity: chronic Qualified Code(s): I50.32 - Chronic diastolic (congestive ) heart failure (6) Pancytopenia Current Visit: Yes Status: Acute (7) Lung cancer Current Visit: No Status: Chronic Qualifiers: Laterality: right Lung location: upper lobe of lung Qualified Code(s): C34.11 - Malignant neoplasm of upper lobe, right bronchus or lung - Subjective Interval history: Mr. 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 Now he presented to the emergency room complaining about from last couple of months he has been having progressively worsening shortness of breath, which really worsened during last 5 days Complaining of shortness of breath. Patient is complaining of distal urea therefore UA and culture ordered. Patient is on multiple antibiotics scattered wheezing and a lot of rhonchi. Breath sounds are better now. Increase IV Solu- Medrol 60 every 8. Chest PT recommended the antibiotics. Plan is to send him to the [facility] may be in 2 days as anticipate that with high-dose steroids and nebulizer breathing status would improve. Patient has pancytopenia with low hemoglobin and platelets. He had acute kidney injury on admission but no real function are fine - Constitutional Vitals: Temp Pulse Resp BP Pulse Ox 98.2 F 105 18 139/67 97 04/02/17 15:55 04/02/17 15:55 04/02/17 15:55 04/02/17 15:55 04/02/17 15:55 General appearance: Present: A&O X 3, pleasant, no acute distress, underweight, answers questions appropriately - Head Head exam: Present: atraumatic, normocephalic - Eye Eye exam: Present: PERRL, conjuntiva pink, sclera anicteric Pupils: Present: PERRL - Neck Neck exam general surgery: Present: supple, trachea midline. Absent: lymphadenopathy - Respiratory Respiratory exam: Present: CTAB, rhonchi. Absent: accessory muscle use, rales - Cardiovascular Cardiovascular exam: Present: RRR, +S1, +S2. Absent: diastolic murmur, gallop, rubs, systolic murmur - GI/Abdominal GI/Abdominal exam: Present: normal bowel sounds, soft, no peritoneal signs. Absent: distended, tenderness - Extremities Exam Extremities exam: Present: warm, radial pulses palpable and symetrical. Absent : calf tenderness, cyanotic, pedal edema - Neurological Exam Neurological exam: Present: CN II-XII intact, oriented X3, no focal deficits. Absent: pronater drift, facial droop, speech deficit - Skin Skin exam: Present: dry, intact Internal Medicine: Result - Labs CBC & Chem 7: 04/02/17 04:30 04/02/17 04:30 Labs: Short CBC 04/02/17 Range/Units 04:30 WBC 6.6 (4.3-11.1) K/mcL Hgb 8.2 L (12.9-16.9) g/dL Hct 26.6 L (37.5-50.1) % Plt Count 26 L* (140-400) K/mcL Neutrophils # 5.7 (1.6-8.9) K/mcL BMP 04/02/17 04:30 Sodium 139 Potassium 4.7 H Chloride 106 Carbon Dioxide 29 BUN 56 H Creatinine 1.04 Glucose 244 H Calcium 8.7 Liver Function 04/02/17 Range/Units 04:30 Total Bilirubin 0.6 (0.2-1.2) mg/dL AST 19 (5-34) Units/L ALT 45 (0-55) Units/L Alkaline Phosphatase 63 (38-126) Units/L Albumin 2.2 L (3.5-5.0) g/dL - ABG Interpretation ABG results: PT/INR, D-dimer PT 11.6 Seconds (9.4-12.1) 03/25/17 08:28 - VTE Documentation of Mechanical Device: Graduated compression elastic hosiery Consult Discharge Plan - Plan Referrals: Shreya Guzmán MD [Primary Care Provider] - 04/06/17 12:00 pm Bakari Fernandez MD [Partnered Physician] - 04/03/17 3:20 pm
[2017-04-02] MEDS: Acetaminophen 325 MG TABLET PO PRN (21:51)
[2017-04-03] MEDS: Ipratropium/Albuterol Neb 3 ML IH SCH ×6 (03:57→23:44)
[2017-04-03 05:57] LABS: Red Cell Distribution Width 17.7 % (11.5-14.5)
[2017-04-03 05:59] LABS: Hematocrit 24.8 % (37.5-50.1); Hemoglobin 7.9 g/dL (12.9-16.9); Immature Platelets 10.2 % (1.1-6.1); Mean Corpuscular HGB Conc 31.9 g/dL (31.6-35.5); Mean Corpuscular Hemoglobin 31.3 pg (28.0-33.3); Mean Corpuscular Volume 98.4 fL (83.0-100.0); Red Blood Count 2.52 M/mcL (4.19-5.50)
[2017-04-03 06:05] LABS: Platelet Count 20 K/mcL (140-400)
[2017-04-03 06:06] LABS: Alanine Aminotransferase 38 Units/L (0-55); Albumin 2.1 g/dL (3.5-5.0); Alkaline Phosphatase 62 Units/L (38-126); Aspartate Amino Transferase 22 Units/L (5-34); BUN/Creatinine Ratio 58 (6-26); Bilirubin,Total 0.9 mg/dL (0.2-1.2); Blood Urea Nitrogen 62 mg/dL (8-26); Calcium 8.5 mg/dL (8.6-10.8); Carbon Dioxide 27 mEq/L (19-29); Chloride 103 mEq/L (98-109); Globulin 2.2 g/dL (2.4-3.5); Glucose 228 mg/dL (70-99); Osmolality,Calculated 303 (280-300); Potassium 4.8 mEq/L (3.5-4.5); Sodium 134 mEq/L (136-145); Total Protein 4.3 g/dL (6.0-8.3); eGFR For African Americans > 60 (> 60); eGFR For Non-African Americans > 60 (> 60)
[2017-04-03 07:52] LABS: Lymphocytes # 0.5 K/mcL (0.6-4.6); Neutrophils # 6.3 K/mcL (1.6-8.9); Platelet Estimate Decreased (Normal)
[2017-04-03] MEDS: Famotidine 20 MG TABLET PO SCH ×2 (08:15→22:46)
[2017-04-03] MEDS: Multivit/Ca/Min/Fe/FA 1 TAB TABLET PO SCH (08:15)
[2017-04-03] MEDS: MethylPREDNISolone 40 MG/ML VIAL IVP SCH (08:15)
[2017-04-03] MEDS: Folic Acid 1 MG TABLET PO SCH (08:16)
[2017-04-03] MEDS: Aspirin Enteric Coated 81 MG Tablet PO SCH (08:16)
[2017-04-03] MEDS: Finasteride 5 MG TABLET PO SCH (08:17)
[2017-04-03] MEDS: Insulin LISPRO 300 UNITS/3 ML VIAL SQ SCH ×4 (08:46→22:46)
--- NOTE | 2017-04-03 10:36 | Internal Med Progress Note ---
Date of Encounter: 04/03/17 Time of Encounter: 10:34 - Assessment and plan (1) Community acquired pneumonia Current Visit: Yes Status: Acute Assessment and plan: Patient was admitted with sepsis from Pneumonia; has received Vancomycin, Cefepime and Levaquin initially, then changed to Cefepime and Levaquin for the last 9 days. Initial 1/2 blood cultures grew Josh, likely a contaminant and repeat 2/2 blood cultures remained negative. Patient has a prolonged and slow recovery and poor prognosis at this time; will hold Cefepime and continue Levaquin to complete a 14-day course. Continue supportive care and supplemental O2; PT evaluation recommends ECF placement, plan for the same; medical social consultant on board; Qualifiers: Lung location: unspecified part of lung Qualified Code(s): J18.9 - Pneumonia, unspecified organism (2) Acute exacerbation of chronic obstructive airways disease Current Visit: Yes Status: Acute Assessment and plan: improving slowly, however continues to require high flow O2 at 6L/min NC O2; change steroids to oral form; continue inhaled corticosteroids and bronchodilators; (3) Sepsis Current Visit: Yes Status: Resolved Qualifiers: Sepsis type: sepsis due to unspecified organism Qualified Code(s): A41.9 - Sepsis, unspecified organism (4) Acute and chronic respiratory failure with hypoxia Current Visit: Yes Status: Acute (5) Pancytopenia Current Visit: Yes Status: Acute Assessment and plan: likely related to underlying lung cancer and chemotherapy; noted to have worsening platelet count- 20K today; hold ASA and will continue to monitor and plan to transfuse if it drops further; Oncology f/up appreciated; will obtain CT chest with IV contrast; (6) Lung cancer Current Visit: Yes Status: Chronic Assessment and plan: Oncology f/up npted; requires staging with CT chest with IV contrast and MRI brain due to h/o brain mets per patient; patient is not motivated to continue followup with Oncology or chemotherapy upon discharge; PALLIATIVE CARE CONSULT; Qualifiers: Laterality: right Lung location: upper lobe of lung Qualified Code(s): C34.11 - Malignant neoplasm of upper lobe, right bronchus or lung (7) ROBERT (acute kidney injury) Current Visit: Yes Status: Resolved (8) Emphysema lung Current Visit: Yes Status: Chronic Qualifiers: Emphysema type: unspecified Qualified Code(s): J43.9 - Emphysema, unspecified (9) Rheumatoid arthritis Current Visit: Yes Status: Chronic Assessment and plan: on Methotrexate; Qualifiers: Rheumatoid arthritis location: hand Rheumatoid factor presence: with rheumatoid factor Laterality: unspecified laterality Qualified Code(s): M05.749 - Rheumatoid arthritis with rheumatoid factor of unspecified hand without organ or systems involvement (10) Congestive heart failure (CHF) Current Visit: Yes Status: Chronic Qualifiers: Congestive heart failure type: diastolic Congestive heart failure chronicity: chronic Qualified Code(s): I50.32 - Chronic diastolic (congestive ) heart failure (11) Hypertension Current Visit: Yes Status: Chronic Qualifiers: Hypertension type: essential hypertension Qualified Code(s): I10 - Essential (primary) hypertension - Subjective Interval history: Continues to have generalized weakness, getting worse due to prolonged hospitalization; has dyspnea, requiring high flow O2 via NC at 6L/min; - Constitutional Vitals: Temp Pulse Resp BP Pulse Ox 97.4 F L 79 18 112/58 98 04/03/17 07:42 04/03/17 07:42 04/03/17 07:54 04/03/17 07:42 04/03/17 07:54 General appearance: Present: A&O X 3, answers questions appropriately - Respiratory Respiratory exam: Present: decreased breath sounds (slightly decreased air entry ), CTAB. Absent: accessory muscle use, rales, rhonchi, wheezes - Cardiovascular Cardiovascular exam: Present: RRR, +S1, +S2. Absent: diastolic murmur, gallop, rubs, systolic murmur - GI/Abdominal GI/Abdominal exam: Present: normal bowel sounds, soft, no peritoneal signs. Absent: distended, tenderness - Extremities Exam Extremities exam: Present: full ROM, warm, radial pulses palpable and symetrical. Absent: calf tenderness, cyanotic, pedal edema - Neurological Exam Neurological exam: Present: CN II-XII intact, oriented X3, no focal deficits. Absent: pronater drift, facial droop, speech deficit Internal Medicine: Result - Labs CBC & Chem 7: 04/03/17 05:50 04/03/17 05:50 Labs: Short CBC 04/03/17 Range/Units 05:50 WBC 6.8 (4.3-11.1) K/mcL Hgb 7.9 L (12.9-16.9) g/dL Hct 24.8 L (37.5-50.1) % Plt Count 20 L* (140-400) K/mcL Neutrophils # 6.3 (1.6-8.9) K/mcL BMP 04/03/17 05:50 Sodium 134 L Potassium 4.8 H Chloride 103 Carbon Dioxide 27 BUN 62 H Creatinine 1.06 Glucose 228 H Calcium 8.5 L Liver Function 04/03/17 Range/Units 05:50 Total Bilirubin 0.9 (0.2-1.2) mg/dL AST 22 (5-34) Units/L ALT 38 (0-55) Units/L Alkaline Phosphatase 62 (38-126) Units/L Albumin 2.1 L (3.5-5.0) g/dL - ABG Interpretation ABG results: PT/INR, D-dimer PT 11.6 Seconds (9.4-12.1) 03/25/17 08:28 - VTE Documentation of Mechanical Device: Graduated compression elastic hosiery Consult Discharge Plan - Plan Referrals: Shreya Guzmán MD [Primary Care Provider] - 04/06/17 12:00 pm Bakari Fernandze MD [Partnered Physician] - 04/03/17 3:20 pm
[2017-04-03] MEDS: Cefepime HCl 1,000 MG in D5% in Water (Mini-Bag+) 100 ML IVPB SCH (12:38)
--- NOTE | 2017-04-03 15:13 | Palliative - Consult Note ---
Date of Encounter: 04/03/17 Time of Encounter: 14:00 - Assessment and Plan (1) Goals of care, counseling/discussion Current Visit: Yes Status: Acute Assessment and plan: Patient alert and oriented x 3. Reports that his Christy also has COPD and is not in good overall health. He reports that his daughter Heidi is living at home with his and him when he isn't in ECF. I explained patients overall poor lung function despite high flow O2. I called Heidi and she arrived for meeting. Heidi brought in Living Will and DPOA papers. I reviewed with her and the patient and made copies and sent to medical records for scanning into EHR. Discussed overall POC as patient is on day 10 of prolonged hospital stay. Patient goals of care are to stable enough to return home in Heidi's care. I explained that his COPD was advanced and that optimal medical care might not be enough to make patient better. Heidi reports that the patient needs to ambulatory for her to care for him at home. We discussed the need to participate in PT & OT to improve. I discussed Code Status and patient reports not wanting CPR, Defibrillation, or advanced cardiac life support interventions such as vasopressors or cardiac life support medications. I explained the types of DNR statuses and patient desires to be DNRCC-A, DNI. I completed the State Form and provided copy to Heidi for her records. A copy was send to medical records and the patient was made a DNRCC-A, DNI. Goals are to go to ECF for rehab if possible. I explained that patient meets criteria for hospice and he reports that he isn't really interested in having any more chemotherapy for his lung cancer. Heidi reports that patient has refused to go to any of his scheduled outpatient Oncology appointments. Patient not interested in Hospice care at this time but is aware that this may very well be an option as patient is still requiring high flow O2. Will follow progress and continue to work with the patient and family. (2) Dyspnea Current Visit: Yes Status: Acute Assessment and plan: Patient with high flow O2 at 6L. Baseline is 3L NC at home. Patient with conversational dyspnea. Plan: - HOB up for ease of breathing - Morphine prn - Duonebs - supplemental O2 Qualifiers: Dyspnea type: unspecified Qualified Code(s): R06.00 - Dyspnea, unspecified (3) Constipation Current Visit: Yes Status: Acute Assessment and plan: Patient with no BM x 7 days. On Colace. Will add laxative to plan. Qualifiers: Constipation type: unspecified constipation type Qualified Code(s): K59.00 - Constipation, unspecified (4) Lung cancer Current Visit: No Status: Chronic Assessment and plan: Oncology following. Stable Qualifiers: Laterality: right Lung location: upper lobe of lung Qualified Code(s): C34.11 - Malignant neoplasm of upper lobe, right bronchus or lung (5) Emphysema lung Current Visit: No Status: Chronic Qualifiers: Emphysema type: unspecified Qualified Code(s): J43.9 - Emphysema, unspecified Palliative-CN HPI - Data of Consult Patient: new to practice Consult date: 04/03/17 Requesting Physician: Winter Marin Primary Care Provider[facility] - Consult Narrative Palliative Care/Comfort Measures: Palliative care Reason for consult: Goals of Care History of present illness: Mr. Ball is a 86 year old male admitted with SOB and dyspnea. Patient with pneumonia, COPD, lung cancer, Brain mets treated with cyber knife, CAD, past smoker. Patient completed Carbo/Taxol May 2016 and has been seen by Oncology and outpatient follow-up recommended. The patient is on day 10 of his hospital stay. Case discussed with Dr. Marin and palliative consult for goals of care planning and discussion. Patient was in [facility] participating in physical therapy when he began having SOB and was admitted for pneumonia possible sepsis. CC: Nic Benson MD Past Med Surg Social Fam HX - Past Medical History Source: patient, old records reviewed, obtained from family Medical history: arthritis, cancer, COPD, hyperlipidemia, myocardial infarction , RA, renal disease, other Psychiatric history: anxiety, depression - Past Surgical History Surgical History: appendectomy - Social History Smoking Status: Former smoker Smokeless Tobacco Status: No Alcohol use: none Drug use: none Occupational status: retired Current living situation: ECF Activity Level: Uses cane/walker Recent Out of Country Travel Within the Last 8 Weeks: No Exposure or Possible Exposure to Illness During Travel: No - Family History Father Hx Family Cardiac Disorders: Yes Brother Hx Family Cardiac Disorders: Yes ([place]) Medications and Allergies Aspirin [Adult Low Dose Aspirin EC] 81 mg PO DAILY 09/22/15 [History] Atenolol [Tenormin] 50 mg PO DAILY 09/22/15 [History] Atorvastatin [Lipitor] 40 mg PO DAILY 09/22/15 [History] Budesonide/Formoterol 80/4.5 [Symbicort 80/4.5] 2 puff IH BIDR 09/22/15 [ History] Finasteride [Proscar] 5 mg PO DAILY 09/22/15 [History] Folic Acid 1 mg PO DAILY 09/22/15 [History] Losartan Potassium [Cozaar] 50 mg PO DAILY 09/22/15 [History] Methotrexate [Otrexup] 15 mg PO GIRALDO 09/22/15 [History] Multivit-Min/FA/Vit K/Lycopene [Hm Mens 50+ Advanced One Daily] 1 each PO DAILY 09/22/15 [History] Tamsulosin [Flomax] 0.4 mg PO DAILY 09/22/15 [History] Calcium Carbonate/Vitamin D3 [Calcium 500-Vit D3 600 Tablet] 1 tab PO DAILY 02/10 [History] Albuterol Neb [Proventil Neb] 2.5 mg IH Q4HR PRN 14 Days 01/08/17 [Rx] Tiotropium [Spiriva] 18 mcg IH 0700 #30 capsule 01/08/17 [Rx] predniSONE [PredniSONE] 10 mg PO DAILY #30 tablet 01/08/17 [Rx] Oxygen 3 l NS AD 02/21/17 [History] Acetaminophen [Tylenol] 650 mg PO Q6H PRN 03/25/17 [History] Doxazosin [Cardura] 4 mg PO 0800 03/25/17 [History] Nystatin Cream [Mycostatin Cream] 1 appl TP BID PRN 03/25/17 [History] Propylene Glycol/Peg 400 [Systane 0.3-0.4% Eye Drops] 1 drop BOTH EYES BID PRN 03/25/17 [History] Allergies celecoxib [From Celebrex] Allergy (Unknown, Verified 03/25/17 09:37) See Comments reaction unknown Latex, Natural Rubber Allergy (Unknown, Verified 03/25/17 09:37) See Comments reaction unknown rofecoxib [From Vioxx] Allergy (Unknown, Verified 03/25/17 09:37) See Comments reaction unknown Sulfa (Sulfonamide Antibiotics) Allergy (Unknown, Verified 03/25/17 09:37) Unknown All systems: reviewed and no additional remarkable complaints except as stated ( SOB, weakness, dyspnea) - Constitutional Constitutional ROS PAL: fatigue, weight loss - EENT Eyes: requires corrective lenses - Cardiovascular Cardiovascular ROS: dyspnea on exertion - Respiratory Respiratory: dyspnea, dyspnea on exertion - Gastrointestinal Gastrointestinal: constipation - Genitourinary Genitourinary ROS male: urinary frequency - Musculoskeletal Musculoskeletal ROS IM: muscle weakness - Neurological Neurological ROS: weakness - Psychiatric Psychiatric general PM: anxiety (anxiety from SOB) Palliative Care-Exam - Constitutional Vitals: Temp Pulse Resp BP Pulse Ox 97.5 F L 78 16 96/51 99 04/03/17 11:59 04/03/17 11:59 04/03/17 11:59 04/03/17 11:59 04/03/17 11:59 General appearance: Present: cooperative - Head Head Exam: Present: atraumatic, normal inspection, normocephalic - Eye Eye exam: Present: PERRL - ENT ENT exam: Present: mucous membranes moist - Expanded ENT Exam Mouth Exam: Present: moist Teeth exam: Present: normal external inspection - Neck Neck exam: Present: full ROM - Respiratory Respiratory exam: Present: decreased breath sounds, prolonged expiratory phase - Expanded Respiratory Exam Location: decreased breath sounds: Left, Right, Lower - Cardiovascular Cardiovascular exam: Present: RRR, +S1, +S2 - Expanded Cardiovascular Exam Peripheral pulses: 1+: Femoral (L) PM, Femoral (R) PM, Posterior Tibialis (L), Posterior Tibialis (R), 2+: Carotid (L) PM, Carotid (R) PM, Radial (L), Radial ( R), Dorsalis Pedis (L) PM, Dorsalis Pedis (R) PM - GI/Abdominal Exam GI/Abdominal exam: Present: normal bowel sounds, soft - Rectal Rectal Exam: Present: normal inspection - Additional comments: Attends - Extremities Exam Extremities exam: Present: full ROM - Expanded Upper Extremities Exam Upper Arm exam: Present: full ROM Forearm wrist exam: Present: full ROM - Expanded Lower Extremities Exam Upper Leg exam: Present: full ROM Lower Leg exam: Present: full ROM - Back Exam Back exam: Present: tenderness - Neurological Exam Neurological exam: Present: alert, oriented X3 - Psychiatric Psychiatric exam: Present: normal affect, normal mood - Skin Skin exam: Present: abrasion (bilateral arms with erythema and skin tears), erythema Internal Medicine - CN: Reslt - Labs CBC & Chem 7: 04/03/17 05:50 04/03/17 05:50 Labs: Short CBC 04/03/17 Range/Units 05:50 WBC 6.8 (4.3-11.1) K/mcL Hgb 7.9 L (12.9-16.9) g/dL Hct 24.8 L (37.5-50.1) % Plt Count 20 L* (140-400) K/mcL Neutrophils # 6.3 (1.6-8.9) K/mcL BMP 04/03/17 05:50 Sodium 134 L Potassium 4.8 H Chloride 103 Carbon Dioxide 27 BUN 62 H Creatinine 1.06 Glucose 228 H Calcium 8.5 L Liver Function 04/03/17 Range/Units 05:50 Total Bilirubin 0.9 (0.2-1.2) mg/dL AST 22 (5-34) Units/L ALT 38 (0-55) Units/L Alkaline Phosphatase 62 (38-126) Units/L Albumin 2.1 L (3.5-5.0) g/dL - ABG Interpretation ABG results: PT/INR, D-dimer PT 11.6 Seconds (9.4-12.1) 03/25/17 08:28 Consult Discharge Plan - Plan Referrals: Shreya Guzmán MD [Primary Care Provider] - 04/06/17 12:00 pm Bakari Fernandez MD [Partnered Physician] - 04/03/17 3:20 pm Palliative Quality Palliative Quality: Screen for Code Status: Yes, Screen for Goals of Care: Yes, Screen for Pain: Yes, If Pain Regimen Started, Initiate Bowel Regimen: Yes, Screen for Nausea/Vomitting: Yes Code Status: 04/03/17 15:02 DNR [Resuscitation Status: Active] [RES] Routine Resuscitation Status: DNR-Comfort Care-Arrest Comment:
[2017-04-03] MEDS: Furosemide 40 MG TABLET PO SCH (16:15)
[2017-04-03 21:59] LABS: Hemoglobin A1C 6.6 %
[2017-04-03] MEDS: Sennosides/Docusate Sodium TABLET PO SCH (22:46)
[2017-04-03] MEDS: Acetaminophen 325 MG TABLET PO PRN (22:46)
[2017-04-03] MEDS: Insulin DETEMIR 100 UNIT/ML X5UNITS SQ SCH (22:48)
[2017-04-04] MEDS: Ipratropium/Albuterol Neb 3 ML IH SCH ×5 (03:27→20:32)
[2017-04-04 05:15] LABS: Alanine Aminotransferase 42 Units/L (0-55); Albumin 2.2 g/dL (3.5-5.0); Alkaline Phosphatase 67 Units/L (38-126); Aspartate Amino Transferase 21 Units/L (5-34); BUN/Creatinine Ratio 67 (6-26); Bilirubin,Total 0.8 mg/dL (0.2-1.2); Blood Urea Nitrogen 68 mg/dL (8-26); Calcium 8.6 mg/dL (8.6-10.8); Carbon Dioxide 27 mEq/L (19-29); Chloride 105 mEq/L (98-109); Globulin 2.3 g/dL (2.4-3.5); Glucose 119 mg/dL (70-99); Osmolality,Calculated 305 (280-300); Sodium 137 mEq/L (136-145); Total Protein 4.5 g/dL (6.0-8.3); eGFR For African Americans > 60 (> 60); eGFR For Non-African Americans > 60 (> 60)
[2017-04-04 05:16] LABS: Hemoglobin 7.9 g/dL (12.9-16.9)
[2017-04-04 05:18] LABS: Hematocrit 24.6 % (37.5-50.1); Immature Platelets 11.6 % (1.1-6.1); Mean Corpuscular HGB Conc 32.1 g/dL (31.6-35.5); Mean Corpuscular Hemoglobin 31.2 pg (28.0-33.3); Mean Corpuscular Volume 97.2 fL (83.0-100.0); Nucleated Red Blood Cells 0.3 /100 WBC (0); Red Blood Count 2.53 M/mcL (4.19-5.50); Red Cell Distribution Width 17.6 % (11.5-14.5)
[2017-04-04 05:46] LABS: Platelet Count 19 K/mcL (140-400)
[2017-04-04 06:25] LABS: Lymphocytes # 0.3 K/mcL (0.6-4.6); Neutrophils # 6.6 K/mcL (1.6-8.9)
[2017-04-04 06:26] LABS: Platelet Estimate Marked Decrease (Normal)
[2017-04-04] MEDS: levoFLOXacin 750 MG TABLET PO SCH (08:04)
[2017-04-04] MEDS: Folic Acid 1 MG TABLET PO SCH (08:04)
[2017-04-04] MEDS: Famotidine 20 MG TABLET PO SCH ×2 (08:05→21:01)
[2017-04-04] MEDS: Multivit/Ca/Min/Fe/FA 1 TAB TABLET PO SCH (08:05)
[2017-04-04] MEDS: Furosemide 40 MG TABLET PO SCH (08:05)
[2017-04-04] MEDS: Finasteride 5 MG TABLET PO SCH (08:05)
[2017-04-04] MEDS: Insulin LISPRO 300 UNITS/3 ML VIAL SQ SCH ×4 (08:06→21:02)
[2017-04-04] MEDS: predniSONE 20 MG TABLET PO SCH (08:06)
[2017-04-04] MEDS: Sennosides/Docusate Sodium TABLET PO SCH ×2 (08:15→21:01)
[2017-04-04] MEDS: Insulin DETEMIR 100 UNIT/ML X5UNITS SQ SCH ×2 (08:16→21:01)
--- NOTE | 2017-04-04 14:21 | Palliative Progress Note ---
Date of Encounter: 04/04/17 Time of Encounter: 10:00 - Assessment and plan (1) Goals of care, counseling/discussion Current Visit: Yes Status: Acute Assessment and plan: Discussed patient discharge desires and patient desires to stay here in hospital. I explained that he would need to have rehab before transition to home as daughter Heidi would need him to be mobile. Explained that his platelets are low and that he would require a transfusion today. Patient alert and not eager to participate in PT. He agreed to try. Kenton Carvalho confirmed bed at [facility] and that they have set-up for high flow O2. I reinforced that patient meets hospice criteria for end stage lung disease if he desires to transition to comfort care. Patient reports not wanting hospice care at present. (2) Dyspnea Current Visit: Yes Status: Acute Assessment and plan: Supplemental O2 - Patient on 6L high flow. Morphine PRN for dyspnea - Non requested in past 24 hrs. Duonebs Position for comfort Qualifiers: Dyspnea type: unspecified Qualified Code(s): R06.00 - Dyspnea, unspecified (3) Constipation Current Visit: Yes Status: Acute Assessment and plan: NO BM reported. Will add one time dose of Miralax today. Qualifiers: Constipation type: unspecified constipation type Qualified Code(s): K59.00 - Constipation, unspecified (4) Lung cancer Current Visit: Yes Status: Chronic Qualifiers: Laterality: right Lung location: upper lobe of lung Qualified Code(s): C34.11 - Malignant neoplasm of upper lobe, right bronchus or lung (5) Emphysema lung Current Visit: Yes Status: Chronic Qualifiers: Emphysema type: unspecified Qualified Code(s): J43.9 - Emphysema, unspecified - Time Spent With Patient Total time spent is greater than 50% in coordination of care (as documented) at patient's floor/unit and/or counseling patient: 25 - 35 minutes - Subjective Interval history: In bed, denies pain. Eating breakfast without difficulty. - Constitutional Vitals: Abnormal lab results RBC 2.53 M/mcL (4.19-5.50) L 04/04/17 04:48 Hgb 7.9 g/dL (12.9-16.9) L 04/04/17 04:48 Hct 24.6 % (37.5-50.1) L 04/04/17 04:48 RDW 17.6 % (11.5-14.5) H 04/04/17 04:48 Plt Count 19 K/mcL (140-400) L* 04/04/17 04:48 Immature Gran % 4.5 % (0-4) H 03/27/17 16:10 Band Neutrophils % 6.0 % (0-4) H 04/04/17 04:48 Metamyelocytes % 2.0 % (0) H 04/02/17 04:30 Lymphocytes # 0.3 K/mcL (0.6-4.6) L 04/04/17 04:48 Nucleated RBCs/100 WBC 0.3 /100 WBC (0) H 04/04/17 04:48 Toxic Granulation Present (Not Present) A 04/02/17 04:30 Platelet Estimate Marked Decrease (Normal) L 04/04/17 04:48 Immature Plt Fraction 11.6 % (1.1-6.1) H 04/04/17 04:48 Hypochromasia Present (Not Present) A 03/25/17 08:28 Anisocytosis 1+ (Not Present) A 03/26/17 03:51 Tear Drop Cells 1+ (Not Present) A 03/26/17 03:51 Helen Cells 1+ (Not Present) A 03/26/17 03:51 APTT 24.2 Seconds (26.0-36.0) L 03/25/17 08:28 BUN 68 mg/dL (8-26) H 04/04/17 04:48 BUN/Creatinine Ratio 67 (6-26) H 04/04/17 04:48 Glucose 119 mg/dL (70-99) H 04/04/17 04:48 POC Glucose 187 (58-89) H 04/03/17 07:48 Hemoglobin A1c 6.6 % (-5.6) H 04/03/17 05:50 Calculated Osmolality 305 (280-300) H 04/04/17 04:48 B-Natriuretic Peptide 273 pg/mL (0-100) H 03/26/17 03:51 Serum Total Protein 4.5 g/dL (6.0-8.3) L 04/04/17 04:48 Albumin 2.2 g/dL (3.5-5.0) L 04/04/17 04:48 Globulin 2.3 g/dL (2.4-3.5) L 04/04/17 04:48 Albumin/Globulin Ratio 1.0 (1.1-2.2) L 04/04/17 04:48 Urine Clarity Cloudy (Clear) A 03/25/17 09:30 Urine Protein 30 mg/dL (Neg-Trace) H 03/25/17 09:30 Urine Blood Moderate (Negative) H 03/25/17 09:30 Urine Microscopic RBC 15-30 per hpf (0-3) H 03/25/17 09:30 Urine Microscopic WBC 3-5 per hpf (0-3) H 03/25/17 09:30 Ur Squamous Epith Cells Many per lpf (None-Few) H 03/25/17 09:30 Staphylococcus sp PCR DETECTED (Not Detect) A 03/25/17 08:28 mecA-Methicil Res Gene DETECTED (Not Detect) A 03/25/17 08:28 - Head Head exam: Present: atraumatic, normal inspection, normocephalic - Eye Eye exam: Present: periorbital tenderness - ENT ENT exam: Present: mucous membranes moist - Neck Neck exam: Present: full ROM - Respiratory Respiratory exam: Present: decreased breath sounds, prolonged expiratory phase - Expanded Respiratory Exam Location: decreased breath sounds: Left, Right, Lower - Cardiovascular Cardiovascular exam: Present: RRR, +S1, +S2 - GI/Abdominal GI/Abdominal exam: Present: normal bowel sounds, soft - Rectal Rectal exam: Present: deferred - Extremities Exam Extremities exam: Present: full ROM - Back Exam Back exam: Present: full ROM - Neurological Exam Neurological exam: Present: alert, oriented X3 - Psychiatric Psychiatric exam: Present: flat affect - Skin Skin exam: Present: pallor (multiple skin tears to bilateral arms), warm Palliative Quality Palliative Quality: Screen for Code Status: Yes, Screen for Goals of Care: Yes, Screen for Pain: Yes, If Pain Regimen Started, Initiate Bowel Regimen: Yes, Screen for Nausea/Vomitting: Yes Code Status: 04/03/17 15:02 DNR [Resuscitation Status: Active] [RES] Routine Comment: Resuscitation Status: DNR-Comfort Care-Arrest DNR [Resuscitation Status: Active] [RES] Routine Comment: Resuscitation Status: [id number] - Labs CBC & Chem 7: 04/04/17 04:48 04/04/17 04:48 Labs: Laboratory Results - last 24 hr 04/02/17 04/02/17 04/03/17 11:39 16:17 05:50 WBC RBC Hgb Hct MCV MCH MCHC RDW Plt Count MPV Seg Neutrophils % Band Neutrophils % Lymphocytes % Neutrophils # Lymphocytes # Nucleated RBCs/100 WBC Platelet Estimate Immature Plt Fraction Sodium Potassium Chloride Carbon Dioxide BUN Creatinine Est GFR ( Amer) Est GFR (Non-Af Amer) BUN/Creatinine Ratio Glucose POC Glucose 137 H 138 H Est Mean Plasma Glucose 143 Hemoglobin A1c 6.6 H Calculated Osmolality Calcium Total Bilirubin AST ALT Alkaline Phosphatase Serum Total Protein Albumin Globulin Albumin/Globulin Ratio Blood Type Antibody Screen 04/04/17 04/04/17 04/04/17 04:48 04:48 11:10 WBC 6.9 RBC 2.53 L Hgb 7.9 L Hct 24.6 L MCV 97.2 MCH 31.2 MCHC 32.1 RDW 17.6 H Plt Count 19 L* MPV TNP Seg Neutrophils % 90.0 Band Neutrophils % 6.0 H Lymphocytes % 4.0 Neutrophils # 6.6 Lymphocytes # 0.3 L Nucleated RBCs/100 WBC 0.3 H Platelet Estimate Marked Decrease L Immature Plt Fraction 11.6 H Sodium 137 Potassium 4.0 Chloride 105 Carbon Dioxide 27 BUN 68 H Creatinine 1.01 Est GFR ( Amer) > 60 Est GFR (Non-Af Amer) > 60 BUN/Creatinine Ratio 67 H Glucose 119 H POC Glucose Est Mean Plasma Glucose Hemoglobin A1c Calculated Osmolality 305 H Calcium 8.6 Total Bilirubin 0.8 AST 21 ALT 42 Alkaline Phosphatase 67 Serum Total Protein 4.5 L Albumin 2.2 L Globulin 2.3 L Albumin/Globulin Ratio 1.0 L Blood Type A POSITIVE Antibody Screen NEGATIVE - ABG Interpretation ABG results: PT/INR, D-dimer PT 11.6 Seconds (9.4-12.1) 03/25/17 08:28 Consult Discharge Plan - Plan Referrals: Shreya Guzmán MD [Primary Care Provider] - 04/06/17 12:00 pm Bakari Fernandez MD [Partnered Physician] - 04/03/17 3:20 pm
[2017-04-04] MEDS ORDERED: 0.9 % Sodium Chloride 250 ML ONE (15:46)
--- NOTE | 2017-04-04 17:02 | Internal Med Progress Note ---
Date of Encounter: 04/04/17 Time of Encounter: 09:15 - Assessment and plan (1) Community acquired pneumonia Current Visit: Yes Status: Acute Assessment and plan: Patient was admitted with sepsis from Pneumonia; has received Vancomycin, Cefepime and Levaquin initially, then changed to Cefepime and Levaquin for the 9 days. Initial 1/2 blood cultures grew MRSpriscila, likely a contaminant and repeat 2/2 blood cultures remained negative. continue Levaquin to complete a 14-day course. Continue supportive care and supplemental O2; CT chest with IV contrast has been ordered to further evaluate possible progression of underlying lung cancer and pneumonia. Patient refused the procedure yesterday due to feeling weak. PT evaluation recommends ECF placement, plan for the same; neonatal social worker and palliative care team on board; patient does not want to begin hospice care at this time, continues to decline being transferred to ECF stating that he has not recovered yet. Qualifiers: Lung location: unspecified part of lung Qualified Code(s): J18.9 - Pneumonia, unspecified organism (2) Acute exacerbation of chronic obstructive airways disease Current Visit: Yes Status: Acute Assessment and plan: improving slowly, however continues to require high flow O2 at 6L/min NC O2; continue oral steroids; continue inhaled corticosteroids and bronchodilators; (3) Sepsis Current Visit: Yes Status: Resolved Qualifiers: Sepsis type: sepsis due to unspecified organism Qualified Code(s): A41.9 - Sepsis, unspecified organism (4) Acute and chronic respiratory failure with hypoxia Current Visit: Yes Status: Acute Assessment and plan: Due to advanced COPD, lung cancer and pneumonia. Continue supplemental oxygen as above and wean down FiO2 as tolerated. (5) Pancytopenia Current Visit: Yes Status: Acute Assessment and plan: likely related to underlying lung cancer and chemotherapy; noted to have worsening platelet count- 19K today; discontinue ASA and methotrexate. We will transfuse platelets today. (6) Lung cancer Current Visit: Yes Status: Chronic Assessment and plan: Oncology f/up npted; requires staging with CT chest with IV contrast and MRI brain due to h/o brain mets per patient; patient is not motivated to continue followup with Oncology or chemotherapy upon discharge; PALLIATIVE CARE CONSULT noted, patient does not wish further chemotherapy and his CODE STATUS has been changed to DNR comfort care arrest/DNI however he is not willing to consider hospice care at this time.; Qualifiers: Laterality: right Lung location: upper lobe of lung Qualified Code(s): C34.11 - Malignant neoplasm of upper lobe, right bronchus or lung (7) ROBERT (acute kidney injury) Current Visit: Yes Status: Resolved (8) Emphysema lung Current Visit: Yes Status: Chronic Qualifiers: Emphysema type: unspecified Qualified Code(s): J43.9 - Emphysema, unspecified (9) Rheumatoid arthritis Current Visit: Yes Status: Chronic Assessment and plan: Hold methotrexate due to thrombocytopenia. Qualifiers: Rheumatoid arthritis location: hand Rheumatoid factor presence: with rheumatoid factor Laterality: unspecified laterality Qualified Code(s): M05.749 - Rheumatoid arthritis with rheumatoid factor of unspecified hand without organ or systems involvement (10) Congestive heart failure (CHF) Current Visit: Yes Status: Chronic Assessment and plan: continue diuretics and beta-clyde; Qualifiers: Congestive heart failure type: diastolic Congestive heart failure chronicity: chronic Qualified Code(s): I50.32 - Chronic diastolic (congestive ) heart failure (11) Hypertension Current Visit: Yes Status: Chronic Qualifiers: Hypertension type: essential hypertension Qualified Code(s): I10 - Essential (primary) hypertension - Subjective Interval history: Reports generalized weakness, "cannot even feed self or move his arms independently'; reports shortness of breath and not feeling well. Quite adamant about staying at [facility] for recuperation as he feels he is not ready to participate in PT at [facility]S [facility] BEDS AT THE [facility] yet; - Constitutional Vitals: Temp Pulse Resp BP Pulse Ox 97.7 F 79 22 106/44 94 04/04/17 16:11 04/04/17 16:11 04/04/17 16:16 04/04/17 15:49 04/04/17 16:16 General appearance: Present: A&O X 3, answers questions appropriately - Respiratory Respiratory exam: Present: CTAB (coarse breath sounds B/L). Absent: accessory muscle use, rales, rhonchi, wheezes - Cardiovascular Cardiovascular exam: Present: RRR, +S1, +S2. Absent: diastolic murmur, gallop, rubs, systolic murmur - GI/Abdominal GI/Abdominal exam: Present: normal bowel sounds, soft, no peritoneal signs. Absent: distended, tenderness Internal Medicine: Result - Labs CBC & Chem 7: 04/04/17 04:48 04/04/17 04:48 Labs: Short CBC 04/04/17 Range/Units 04:48 WBC 6.9 (4.3-11.1) K/mcL Hgb 7.9 L (12.9-16.9) g/dL Hct 24.6 L (37.5-50.1) % Plt Count 19 L* (140-400) K/mcL Neutrophils # 6.6 (1.6-8.9) K/mcL BMP 04/04/17 04:48 Sodium 137 Potassium 4.0 Chloride 105 Carbon Dioxide 27 BUN 68 H Creatinine 1.01 Glucose 119 H Calcium 8.6 Liver Function 04/04/17 Range/Units 04:48 Total Bilirubin 0.8 (0.2-1.2) mg/dL AST 21 (5-34) Units/L ALT 42 (0-55) Units/L Alkaline Phosphatase 67 (38-126) Units/L Albumin 2.2 L (3.5-5.0) g/dL - ABG Interpretation ABG results: PT/INR, D-dimer PT 11.6 Seconds (9.4-12.1) 03/25/17 08:28 - VTE Documentation of Mechanical Device: Graduated compression elastic hosiery Consult Discharge Plan - Plan Referrals: Shreya Guzmán MD [Primary Care Provider] - 04/06/17 12:00 pm Bakari Fernandez MD [Partnered Physician] - 04/03/17 3:20 pm
[2017-04-05] MEDS: Ipratropium/Albuterol Neb 3 ML IH SCH ×5 (00:21→15:47)
[2017-04-05 04:52] LABS: Hemoglobin 7.3 g/dL (12.9-16.9); Red Cell Distribution Width 17.6 % (11.5-14.5)
[2017-04-05 04:54] LABS: Hematocrit 22.8 % (37.5-50.1); Immature Platelets 7.4 % (1.1-6.1); Lymphocytes # 0.1 K/mcL (0.6-4.6); Mean Corpuscular Hemoglobin 30.9 pg (28.0-33.3); Mean Corpuscular Volume 96.6 fL (83.0-100.0); Mean Platelet Volume 12.9 fL (9.4-12.4); Nucleated Red Blood Cells 0.3 /100 WBC (0); Red Blood Count 2.36 M/mcL (4.19-5.50)
[2017-04-05 04:59] LABS: Platelet Count 33 K/mcL (140-400)
[2017-04-05 05:06] LABS: Alanine Aminotransferase 32 Units/L (0-55); Alkaline Phosphatase 61 Units/L (38-126); Aspartate Amino Transferase 21 Units/L (5-34); BUN/Creatinine Ratio 66 (6-26); Bilirubin,Total 0.9 mg/dL (0.2-1.2); Blood Urea Nitrogen 64 mg/dL (8-26); Calcium 7.9 mg/dL (8.6-10.8); Carbon Dioxide 26 mEq/L (19-29); Chloride 105 mEq/L (98-109); Glucose 51 mg/dL (70-99); Osmolality,Calculated 298 (280-300); Potassium 3.5 mEq/L (3.5-4.5); Sodium 136 mEq/L (136-145); Total Protein 3.9 g/dL (6.0-8.3); eGFR For African Americans > 60 (> 60); eGFR For Non-African Americans > 60 (> 60)
[2017-04-05 05:32] LABS: Albumin 1.9 g/dL (3.5-5.0)
[2017-04-05 05:45] LABS: Anisocytosis 1+ (Not Present); Neutrophils # 6.7 K/mcL (1.6-8.9); Platelet Estimate Decreased (Normal)
[2017-04-05 05:46] LABS: Basophilic Stippling 1+ (Not Present); Polychromasia 1+ (Not Present)
[2017-04-05] MEDS: Insulin LISPRO 300 UNITS/3 ML VIAL SQ SCH ×3 (08:13→18:01)
[2017-04-05] MEDS ORDERED: 0.9 % Sodium Chloride 250 ML ONE (09:22)
[2017-04-05] MEDS: Acetaminophen 325 MG TABLET PO PRN (09:52)
[2017-04-05] MEDS: Famotidine 20 MG TABLET PO SCH (09:52)
[2017-04-05] MEDS: Multivit/Ca/Min/Fe/FA 1 TAB TABLET PO SCH (09:52)
[2017-04-05] MEDS: Furosemide 40 MG TABLET PO SCH (09:53)
[2017-04-05] MEDS: Finasteride 5 MG TABLET PO SCH (09:53)
[2017-04-05] MEDS: Folic Acid 1 MG TABLET PO SCH (09:53)
[2017-04-05] MEDS: Sennosides/Docusate Sodium TABLET PO SCH (09:53)
[2017-04-05] MEDS: predniSONE 20 MG TABLET PO SCH (09:53)
[2017-04-05] MEDS: Insulin DETEMIR 100 UNIT/ML X5UNITS SQ SCH (09:54)
[2017-04-05 12:25] VITALS: BP 95/41
--- NOTE | 2017-04-05 13:37 | Discharge Summary ---
Date of Encounter: 04/05/17 Time of Encounter: 13:31 - Discharge Diagnosis (1) Community acquired pneumonia Priority: Primary Status: Acute Qualifiers: Laterality: left Lung location: lower lobe of lung Qualified Code(s): J18.1 - Lobar pneumonia, unspecified organism (2) Acute exacerbation of chronic obstructive airways disease Priority: Primary Status: Acute (3) Sepsis Priority: Primary Status: Resolved Qualifiers: Sepsis type: sepsis due to unspecified organism Qualified Code(s): A41.9 - Sepsis, unspecified organism (4) Acute and chronic respiratory failure with hypoxia Priority: Primary Status: Acute (5) Pancytopenia Priority: Secondary Status: Chronic (6) Lung cancer Priority: Secondary Status: Chronic Qualifiers: Laterality: right Lung location: upper lobe of lung Qualified Code(s): C34.11 - Malignant neoplasm of upper lobe, right bronchus or lung (7) ROBERT (acute kidney injury) Priority: Primary Status: Resolved (8) Emphysema lung Priority: Secondary Status: Chronic Qualifiers: Emphysema type: unspecified Qualified Code(s): J43.9 - Emphysema, unspecified (9) Rheumatoid arthritis Priority: Secondary Status: Chronic Qualifiers: Rheumatoid arthritis location: hand Rheumatoid factor presence: with rheumatoid factor Laterality: unspecified laterality Qualified Code(s): M05.749 - Rheumatoid arthritis with rheumatoid factor of unspecified hand without organ or systems involvement (10) Congestive heart failure (CHF) Priority: Secondary Status: Chronic Qualifiers: Congestive heart failure type: diastolic Congestive heart failure chronicity: chronic Qualified Code(s): I50.32 - Chronic diastolic (congestive ) heart failure (11) Hypertension Priority: Secondary Status: Chronic Qualifiers: Hypertension type: essential hypertension Qualified Code(s): I10 - Essential (primary) hypertension - Discharge Medications Home Medications: Atenolol [Tenormin] 50 mg PO DAILY 09/22/15 [History] Atorvastatin [Lipitor] 40 mg PO HS 09/22/15 [History] Budesonide/Formoterol 80/4.5 [Symbicort 80/4.5] 2 puff IH BIDR 09/22/15 [ History] Finasteride [Proscar] 5 mg PO DAILY 09/22/15 [History] Folic Acid 1 mg PO DAILY 09/22/15 [History] Losartan Potassium [Cozaar] 50 mg PO DAILY 09/22/15 [History] Calcium Carbonate/Vitamin D3 [Calcium 500-Vit D3 600 Tablet] 1 tab PO DAILY 02/10 [History] Albuterol Neb [Proventil Neb] 2.5 mg IH Q4HR PRN 14 Days 01/08/17 [Rx] predniSONE [PredniSONE] 10 mg PO DAILY #30 tablet 01/08/17 [Rx] Acetaminophen [Tylenol] 650 mg PO Q6H PRN 03/25/17 [History] Doxazosin [Cardura] 4 mg PO 0800 03/25/17 [History] Propylene Glycol/Peg 400 [Systane 0.3-0.4% Eye Drops] 1 drop BOTH EYES BID PRN 03/25/17 [History] Furosemide [Lasix] 40 mg PO DAILY tab 04/05/17 [Rx] Multivitamin-Min/Iron/FA/Vit K [Multi-Day Plus Minerals Tablet] 1 each PO DAILY 04/06/17 [History] Nystatin Cream [Mycostatin Cream] 1 appl TP BID PRN 04/06/17 [History] Oxygen 3 - 6 l NS AD 04/06/17 [History] Sennosides [Senna] 8.6 mg PO BID 04/06/17 [History] Tamsulosin HCl [Flomax] 0.4 mg PO DAILY 04/06/17 [History] Tiotropium [Spiriva] 18 mcg IH 0804/06/17 [History] Allergies/Adverse Reactions: Allergies celecoxib [From Celebrex] Allergy (Unknown, Verified 03/25/17 09:37) See Comments reaction unknown Latex, Natural Rubber Allergy (Unknown, Verified 03/25/17 09:37) See Comments reaction unknown rofecoxib [From Vioxx] Allergy (Unknown, Verified 03/25/17 09:37) See Comments reaction unknown Sulfa (Sulfonamide Antibiotics) Allergy (Unknown, Verified 03/25/17 09:37) Unknown Procedures/tests Complete & Pending: Procedures Performed prior 72 hours Category Date Time Status CT chest w con [CT] Routine Cat Scan 04/04/17 08:45 Ordered Date of admission: 03/25/17 09:59 Primary care physician: Shreya Mcginnis Consults: 03/26/17 12:56 Consult to Oncology Hematology [CONS] Routine Consulting Provider: Alonso Perry I Reason for Consult: Hx of lung cancer Call Completed: Yes 03/26/17 13:00 Consult to Auditing Coder [CONS] Routine Reason for SW Consult: ECF vs HH 04/03/17 10:31 Consult to Palliative Care [CONS] Routine Comment: Consulting Provider: Palliative Care Domonique Reason for Consult: Goals of care- lung cancer, pnacytopenia, COPD, Pneumonia Call Completed: Yes Discharging clinician: Winter Marin Anticipated date of discharge: 04/05/17 - Patient Status Disposition: Transfer SNF Condition: Fair Functional capacity at discharge: bed bound Overall status at discharge: patient is not back to baseline - Discharge Instructions Follow Up With: Shreya Guzmán MD [Primary Care Provider] - 04/06/17 12:00 pm Bakari Fernandez MD [Partnered Physician] - 04/03/17 3:20 pm - Diet and Activity Activity: as per physical therapy, wear oxygen at all times Diet: low fat, low cholesterol, low salt diet Hospital course: Mr. Ball is a 86 year old male with multiple medical problems who was initially admitted with worsening shortness of breath. He was noted to have sepsis with possible community-acquired pneumonia along with history of lung cancer, lost to follow-up with oncology. He was started on broad-spectrum IV antibiotics and IV hydration. He also had acute exacerbation of COPD and was started on IV steroids, bronchodilators and inhaled corticosteroids. Oncology was consulted for underlying lung cancer and thrombocytopenia; recommended repeating CT chest with IV contrast and possibly MRI brain to assess for progression of lung cancer and brain metastasis. These tests could not be completed while inpatient as the patient refused due to weakness. His thrombocytopenia was unexplained but thought to be likely related to underlying sepsis. He was also noted to have anemia. He received 1 unit of platelets and 1 unit PRBC transfusion during this admission. Patient was also noted to have acute kidney injury related to dehydration and underlying sepsis, which gradually resolved. Blood cultures remained negative. Patient completed 10 days of dual IV antibiotic therapy, with cefepime and Levaquin. Patient's clinical status continued to deteriorate despite maximal medical therapy. CODE STATUS was discussed with him and he wished to be DNR/DNI. Palliative care team was consulted and after multiple discussions with patient and his daughter who is his power of research attorney, it was decided that the patient would be transferred to extended care facility for continued rehabilitation. He was not willing to consider hospice/palliative care at this time likely because he cannot go home on home hospice as his has lung cancer and is immunocompromised with frequent episodes of pneumonia, and he cannot afford to pay room and board under hospice at the senior living. Patient continued to refuse being transferred out of the hospital and preferred to continue staying in the hospital as he felt very weak. He is otherwise medically stable for discharge. - Time Spent with Patient Total time spent providing and/or coordinating discharge services: Greater than 30 minutes (45 min) - Constitutional Vitals: Temp Pulse Resp BP Pulse Ox 98 F 74 14 95/41 97 04/05/17 12:23 04/05/17 12:23 04/05/17 12:23 04/05/17 12:23 04/05/17 11:37 General appearance: Present: A&O X 3, answers questions appropriately - Respiratory Respiratory exam: Present: CTAB (coarse breath sounds B/L, scattered rhonchi). Absent: accessory muscle use, rales, rhonchi, wheezes - VTE Documentation of Mechanical Device: Graduated compression elastic hosiery
--- NOTE | 2017-04-05 13:41 | Physician Discharge Referral ---
ExtendedCare Referral Info Transfer To: [facility] Provider in Charge: Winter Marin Provider in Charge after Transfer: PCP Institutional Level of Care: Skilled - Diagnosis (1) Community acquired pneumonia Priority: Primary Status: Acute (2) Acute exacerbation of chronic obstructive airways disease Priority: Primary Status: Acute (3) Sepsis Priority: Primary Status: Resolved (4) Acute and chronic respiratory failure with hypoxia Priority: Primary Status: Acute (5) Pancytopenia Priority: Primary Status: Chronic (6) Lung cancer Priority: Primary Status: Chronic (7) ROBERT (acute kidney injury) Priority: Primary Status: Resolved (8) Emphysema lung Priority: Secondary Status: Chronic (9) Rheumatoid arthritis Priority: Secondary Status: Chronic (10) Congestive heart failure (CHF) Priority: Secondary Status: Chronic (11) Hypertension Priority: Secondary Status: Chronic Expected Duration of Placement: 4 weeks Prognosis: Poor Aware of Diagnosis: Patient, Family Aware of Prognosis: Patient, Family - Transfer Medications Home Medications: Atenolol [Tenormin] 50 mg PO DAILY 09/22/15 [History] Atorvastatin [Lipitor] 40 mg PO DAILY 09/22/15 [History] Budesonide/Formoterol 80/4.5 [Symbicort 80/4.5] 2 puff IH BIDR 09/22/15 [ History] Finasteride [Proscar] 5 mg PO DAILY 09/22/15 [History] Folic Acid 1 mg PO DAILY 09/22/15 [History] Losartan Potassium [Cozaar] 50 mg PO DAILY 09/22/15 [History] Multivit-Min/FA/Vit K/Lycopene [Hm Mens 50+ Advanced One Daily] 1 each PO DAILY 09/22/15 [History] Tamsulosin [Flomax] 0.4 mg PO DAILY 09/22/15 [History] Calcium Carbonate/Vitamin D3 [Calcium 500-Vit D3 600 Tablet] 1 tab PO DAILY 02/10 [History] Albuterol Neb [Proventil Neb] 2.5 mg IH Q4HR PRN 14 Days 01/08/17 [Rx] Tiotropium [Spiriva] 18 mcg IH 0700 #30 capsule 01/08/17 [Rx] predniSONE [PredniSONE] 10 mg PO DAILY #30 tablet 01/08/17 [Rx] Acetaminophen [Tylenol] 650 mg PO Q6H PRN 03/25/17 [History] Doxazosin [Cardura] 4 mg PO 0800 03/25/17 [History] Nystatin Cream [Mycostatin Cream] 1 appl TP BID PRN 03/25/17 [History] Propylene Glycol/Peg 400 [Systane 0.3-0.4% Eye Drops] 1 drop BOTH EYES BID PRN 03/25/17 [History] Furosemide [Lasix] 40 mg PO DAILY tab 04/05/17 [Rx] Oxygen 6 l NS AD #0 04/05/17 [Rx] Sennosides/Docusate Sodium [Senna Plus] 1 each PO BID tab 04/05/17 [Rx] Allergies/Adverse Reactions: Allergies celecoxib [From Celebrex] Allergy (Unknown, Verified 03/25/17 09:37) See Comments reaction unknown Latex, Natural Rubber Allergy (Unknown, Verified 03/25/17 09:37) See Comments reaction unknown rofecoxib [From Vioxx] Allergy (Unknown, Verified 03/25/17 09:37) See Comments reaction unknown Sulfa (Sulfonamide Antibiotics) Allergy (Unknown, Verified 03/25/17 09:37) Unknown - Respiratory Orders Oxygen / L per min (6L/min, wean down as tolerated) Smoking Cessation: Smoking cessation has been advised. For more information, call the [place] Tobacco Quit Line at 5-780-HZXB-NOW. - Ancillary Orders May use pressure relief devices daily prn - Advance Directives Code Status: DNR-Arrest/Don't Intubate - Mobility Orders Ambulate - Rehabiliation Orders Rehab Potential: Poor Rehab Orders: ROM Exercises, Evaluation for Physical Therapy, Evaluation for Occupational Therapy - Diet Orders Cardiac CERTIFICATION: I certify that the transfer of the above named patient to an Extended Care Facility is necessary for the continuing treatment of the diagnosis listed. The above information is true and accurate reflection of patient's current condition. Confidential - Redisclosure prohibited without a patient's written consent.
== END 2017-04-05 18:50 | DRG 871 ==
LOC: 2ANU 07:37 → EMEROO 07:37 → SUATTDRO 09:59 → 2NNU 10:17 → 3NENU 03-27 15:20 → 2NENU 03-30 17:48
PROVIDERS: ADMIT Family Medicine; ATTEND Internal Medicine

== ENCOUNTER 2017-04-06 16:54 | Inpatient (IN) ==
[2017-04-06] MEDS ORDERED: Vancomycin 1,000 MG in D5% in Water 250 ML IVPB ONE (17:08)
[2017-04-06] MEDS ORDERED: 0.9 % Sodium Chloride 1,000 ML IVC ONE (17:08)
[2017-04-06] MEDS ORDERED: Piperacillin/Tazobactam 3.375 GM in D5% in Water (Mini-Bag+) 100 ML IVPB ONE (17:08)
[2017-04-06] MEDS ORDERED: Ipratropium/Albuterol Neb 3 ML IH ONE (17:13)
[2017-04-06] MEDS ORDERED: methylPREDNISolone 125 MG/2 ML VIAL IVP ONE (17:13)
--- NOTE | 2017-04-06 17:36 | Emergency Department Note ---
START Narrative - START START: Patient seen and examined the time arrival by EMS. See history of present illness. 86-year-old male presents emergency room from nursing facility for evaluation shortness of breath. Recently just discharged from the hospital segment pneumonia that is refractory to treatment. He has known lung cancer for which he chose not to have treatment. Patient is presenting here at the request of ECF as well as the family. According to transportation papers he is a DNR CCA, DO NOT INTUBATE, DO NOT RESUSCITATE with cardiac medications. On presentation patient has altered answer some questions appropriately but does have some somnolence noted. He is acutely short of breath with tachypnea into the 30s. Heart rate is 105. Patient is concerning for decompensation secondary to his pulmonary disease or progression of his cancer this time. Óscar notes there was some discussion last time for hospice intervention. Patient family and the patient refusing that at this time. See detailed documentation by the resident physician Dr. Samayoa. On clinical exam somnolence is noted patient is maintaining airway at this point. He is tolerating the nonrebreather mask. Lungs due to diminished breath sounds on right noted. Heart is regular but tachycardic. Abdomen soft patient is frail and thin. Patient will also continue admission but determination be made once for workup has been completed in emergency room. We are waiting for family arrived to aid in decision making process. Sepsis evaluation of a completed. Fluids were not given at this point since his blood pressures been stable. We will judiciously give 1 L at this time and then antibiotic regimen. Patient is potentially critically ill we will not intervene with intubation or cardiac resuscitation if need be. Patient will be placed on BiPAP and given breathing treatments at this time. 1843 Palliative care consult at this time. Recommendations will be noted in the chart. Dr. brady austin the patient for inpatient management at this time.
[2017-04-06 17:39] LABS: ABG Base Excess 2.4 mEq/L (-2.0 to 3.0); ABG HCO3 26.3 mEQ/L (21-27); ABG Oxygen Saturation 91 % (95-98); ABG PCO2 37 mmHg (35-45); ABG PH 7.46 pH Units (7.32-7.45); ABG PO2 57 mmHg (85-104); ABG TCO2 27.4 mEq/L (20-26)
[2017-04-06 17:40] LABS: Blood Gas FiO2 100 %
--- NOTE | 2017-04-06 17:43 | Emergency Department Note ---
Disposition Clinical Impression: Difficulty breathing COPD (chronic obstructive pulmonary disease) Qualifiers: COPD type: COPD with acute exacerbation Qualified Code(s): J44.1 - Chronic obstructive pulmonary disease with (acute) exacerbation Sepsis Qualifiers: Sepsis type: sepsis due to unspecified organism Qualified Code(s): A41.9 - Sepsis, unspecified organism Disposition: Admitted As Inpatient Condition: Critical Referrals: NONE,PCP [Primary Care Provider] - Forms: ED Satisfaction Letter Time of Disposition: 19:37 General Adult HPI - General Chief complaint: ED Shortness of Breath/Dyspnea Stated complaint: TYRELL Time Seen by Provider: 04/06/17 16:57 Source: patient, EMS Mode of arrival: EMS Limitations: altered mental status Nursing Notes Reviewed: Yes Vital Signs Reviewed: Yes - History of Present Illness HPI Narrative: Patient is a 86-year-old male with a past medical history of severe COPD, heart failure and lung cancer presenting from [facility] by squad for the presentation of worsening difficulty in breathing. According to the squad the patients family requested that he be transferred here for further evaluation and treatment for the patient's worsening of breathing he was on 6 L of nasal cannula at [facility] which he was satting 78% squad place him on a nonrebreather mask and had to titrate up to 15 L of oxygen and order to have an satting at 100%. The patient appears somewhat altered he is able to state where he is currently, however I have to repetitively ask questions to get answers. He mainly complains of shortness of breath and some chest pain. Upon reviewing the patients records appears that he was diagnosed with pneumonia in December 2016 by a CTA of his chest. Patient has had a couple visits to the emergency department since then with complaining of non-resolving pneumonia and was recently admitted for 9 day inpatient stay at [facility] and treated for sepsis secondary to pneumonia. He should still be finishing a 15 day course of Levaquin from when he was discharged with a inhaled steroids and albuterol treatments. The patient was also consulted with hospice which he stated he was not ready to enter hospice care however he is DNR DNI CCA. Onset (ago): day(s) Radiation: non-radiation Pain Scale: 0 Consistency: Worsening Improves with: nothing Worsens with: movement Associated symptoms: Reports: confusion - Related Data Home Medications Medication Instructions Recorded Confirmed Atenolol [Tenormin] 50 mg PO DAILY 09/22/15 04/06/17 Atorvastatin [Lipitor] 40 mg PO HS 09/22/15 04/06/17 Budesonide/Formoterol 80/4.5 2 puff IH BIDR 09/22/15 04/06/17 [Symbicort 80/4.5] Finasteride [Proscar] 5 mg PO DAILY 09/22/15 04/06/17 Folic Acid 1 mg PO DAILY 09/22/15 04/06/17 Losartan Potassium [Cozaar] 50 mg PO DAILY 09/22/15 04/06/17 Calcium Carbonate/Vitamin D3 1 tab PO DAILY 12/30/16 04/06/17 [Calcium 500-Vit D3 600 Tablet] Acetaminophen [Tylenol] 650 mg PO Q6H PRN 03/25/17 04/06/17 Doxazosin [Cardura] 4 [place] [address]03/25/17 04/06/17 Propylene Glycol/Peg 400 [Systane 1 drop BOTH EYES BID PRN 03/25/17 04/06/17 0.3-0.4% Eye Drops] Multivitamin-Min/Iron/FA/Vit K 1 each PO DAILY 04/06/17 04/06/17 [Multi-Day Plus Minerals Tablet] Nystatin Cream [Mycostatin Cream] 1 appl TP BID PRN 04/06/17 04/06/17 Oxygen 3 - 6 l NS AD 04/06/17 04/06/17 Sennosides [Senna] 8.6 mg PO BID 04/06/17 04/06/17 Tamsulosin HCl [Flomax] 0.4 mg PO DAILY 04/06/17 04/06/17 Tiotropium [Spiriva] 18 mcg IH 79904/06/17 04/06/17 Previous Rx's Medication Instructions Recorded Albuterol Neb [Proventil Neb] 2.5 mg IH Q4HR PRN 14 Days 01/08/17 predniSONE [PredniSONE] 10 mg PO DAILY #30 tablet 01/08/17 Furosemide [Lasix] 40 mg PO DAILY tab 04/05/17 Allergies Allergy/AdvReac Type Severity Reaction Status Date / Time celecoxib [From Celebrex] Allergy Unknown See Verified 03/25/17 09:37 Comments Latex, Natural Rubber Allergy Unknown See Verified 03/25/17 09:37 Comments rofecoxib [From Vioxx] Allergy Unknown See Verified 03/25/17 09:37 Comments Sulfa (Sulfonamide Allergy Unknown Unknown Verified 03/25/17 09:37 Antibiotics) Review of Systems: As Per HPI Limitations: ROS unobtainable due to patients medical condition Cardiovascular: Reports: chest pain Respiratory: Reports: dyspnea Past Medical History - Past Medical History Attestation: Yes The following information was validated with the patient. Source: old records reviewed, obtained from family Medical history: Reports: arthritis, cancer, COPD, hyperlipidemia, myocardial infarction, RA, renal disease, other Surgical history: Reports: appendectomy Psychiatric history: Reports: anxiety, depression - Social History Smoking Status: Former smoker Smokeless Tobacco Status: No Alcohol use: Reports: none Drug use: Reports: none Physical Exam Patient arrived by squad. He is aware of where he is, however is difficult to get answers from him I have to ask questions repetitively. He appears to be in [id number] respiratory distress. He is tachycardic in the 100-110's, hypotensive in the 110/70's, tacypneic, and afebrile. 98% on 10L non- rebreather. - General Limitations: altered mental status General appearance: alert, lethargic, in distress - Head Head exam: normocephalic, normal inspection - Eye Eye exam: Present: PERRL, EOMI - ENT ENT exam: normal exam, normal oropharynx, mucous membranes dry - Neck Neck exam: Present: normal inspection, full ROM, trachea midline. Absent: tenderness - Chest Chest inspection: Present: normal inspection, symmetric chest wall rise - Respiratory Respiratory exam: Present: wheezes - Expanded Respiratory Exam Location: decreased breath sounds: Right, Upper, Lower - Cardiovascular Cardiovascular exam: Present: normal rhythm, tachycardia, normal heart sounds - Abdominal Exam Abdominal exam: Present: soft, Non-Tender, normal bowel sounds - Extremities Exam Extremities exam: Present: full ROM, normal capillary refill. Absent: tenderness, pedal edema - Expanded Lower Extremity Exam Neurovascular/Tendon exam: Present: normal capillary refill. Absent: pulse deficit - Back Exam Back exam: Present: normal inspection, full ROM. Absent: tenderness - Neurological Exam Neurological exam: Present: alert, other (oriented times person and place). Absent: oriented X3 - Skin Skin exam: Present: warm, dry, intact Course Course Narrative: Patient is a 6 year old male with a past medical history of lung cancer, severe COPD and heart failure who presents with worsening shortness of breath. [facility] was discharged yesterday evening from [facility] where he was treated for sepsis secondary to pneumonia. According to his medical records the patient has not been improving and condition since December 2016 and he seems to be worsening. The patient's medical record states that palliative care was consulted during his last admission and the patient was declining to enter palliative medicine. The patient stated that he wanted to be discharged to a facility where he could have physical therapy. The patient also did not want patient discharged to a half-way. They state they would like the patient to be admitted to the hospital for comfort. The patient's lung sounds in general sound diminished. His vital signs he is tachycardic, he is satting at 95% on nonrebreather, respiratory rate of 26, and temperature of 99.0. The patient meets SIRS criteria so we will initiate the sepsis protocol. Also started empirically on comparison and Zosyn for possible pneumonia. I have also ordered a CT chest noncontrast. - Reevaluation(s) Reevaluation #1: I discuss the plan to admit the patient to the hospital with the patient's family. The patient's son and daughter are available at bedside. They stated this with the patient to be comfortable and they also confirmed that the patient is a DNR/DNI CCA. Time: 17:50 Reevaluation #2: I discussed the patient case with the palliative business administration program chair. They said there is no unavailable this weekend however admit the patient to the hospitalist and they will consult with the patient on Sunday. Time: 19:10 Reevaluation #3: I discussed the patient's case with Dr. Cortez and he agrees to admit the patient. Time: 19:33 Vital Signs Temperature 99.0 F 04/06/17 16:57 Pulse Rate 104 04/06/17 16:57 Respiratory Rate 26 04/06/17 16:57 Blood Pressure 102/82 04/06/17 16:57 O2 Sat by Pulse Oximetry 70 04/06/17 16:57 Temperature 99.0 F 04/06/17 16:57 Pulse Rate 94 04/06/17 17:47 Respiratory Rate 25 04/06/17 18:06 Blood Pressure 80/59 04/06/17 18:06 O2 Sat by Pulse Oximetry 99 04/06/17 18:06 Oxygen Delivery Oxygen Delivery CPAP Mask O2 Medical Decision Making - Medical Records Medical records reviewed: Yes I reviewed the patient's medical records. - Lab Data Lab results reviewed: Yes I reviewed the patient's lab results. Result diagrams: 04/06/17 17:35 04/06/17 17:35 Lab Results 04/06/17 04/06/17 04/06/17 Range/Units 17:35 17:35 17:35 WBC 8.7 (4.3-11.1) K/mcL RBC 3.07 L (4.19-5.50) M/mcL Hgb 9.3 L D (12.9-16.9) g/dL Hct 29.1 L (37.5-50.1) % MCV 94.8 (83.0-100.0) fL MCH 30.3 (28.0-33.3) pg MCHC 32.0 (31.6-35.5) g/dL RDW 18.9 H (11.5-14.5) % Plt Count 16 L* D (140-400) K/mcL MPV TNP Immature Gran % 5.7 H (0-4) % Seg Neutrophils % 90.7 % Lymphocytes % 1.1 % Monocytes % 2.1 % Eosinophils % 0.2 % Basophils % 0.2 % Neutrophils # 7.9 (1.6-8.9) K/mcL Lymphocytes # 0.1 L (0.6-4.6) K/mcL Monocytes # 0.2 (0.0-1.3) K/mcL Eosinophils # 0.0 (0.0-0.6) K/mcL Basophils # 0.0 (0.0-0.2) K/mcL Dohle Bodies Present A (Not Present) Immature Plt Fraction 7.4 H (1.1-6.1) % Polychromasia 1+ A (Not Present) PT 13.9 H (9.4-12.1) Seconds INR 1.3 APTT 27.3 (26.0-36.0) Seconds ABG pH (7.32-7.45) pH Units ABG pCO2 (35-45) mmHg ABG pO2 (85-104) mmHg ABG HCO3 (21-27) mEQ/L ABG Total CO2 (20-26) mEq/L ABG O2 Saturation (95-98) % ABG Base Excess (-2.0 to 3.0) mEq/L Blood Gas Modality Inspired O2 % Sodium 140 (136-145) mEq/L Potassium 4.4 (3.5-4.5) mEq/L Chloride 103 (98-109) mEq/L Carbon Dioxide 28 (19-29) mEq/L BUN 93 H D (8-26) mg/dL Creatinine 1.46 H D (0.72-1.25) mg/dL Est GFR ( Amer) 55 L (> 60) Est GFR (Non-Af Amer) 46 L (> 60) BUN/Creatinine Ratio 64 H (6-26) Glucose 209 H (70-99) mg/dL Calculated Osmolality 325 H (280-300) Lactic Acid (0.5-2.2) mmol/L Calcium 8.7 (8.6-10.8) mg/dL Phosphorus 3.6 (2.3-4.7) mg/dL Magnesium 1.9 (1.6-2.6) mg/dL Total Bilirubin 1.1 (0.2-1.2) mg/dL Direct Bilirubin 0.7 H (0.0-0.5) mg/dL Indirect Bilirubin 0.4 (0.0-1.2) mg/dL AST 29 (5-34) Units/L ALT 45 (0-55) Units/L Alkaline Phosphatase 125 (38-126) Units/L Troponin I (0-0.03) ng/mL B-Natriuretic Peptide (0-100) pg/mL Serum Total Protein 4.6 L (6.0-8.3) g/dL Albumin 2.0 L (3.5-5.0) g/dL Globulin 2.6 (2.4-3.5) g/dL Albumin/Globulin Ratio 0.8 L (1.1-2.2) 04/06/17 04/06/17 04/06/17 Range/Units 17:35 17:35 17:35 WBC (4.3-11.1) K/mcL RBC (4.19-5.50) M/mcL Hgb (12.9-16.9) g/dL Hct (37.5-50.1) % MCV (83.0-100.0) fL MCH (28.0-33.3) pg MCHC (31.6-35.5) g/dL RDW (11.5-14.5) % Plt Count (140-400) K/mcL MPV Immature Gran % (0-4) % Seg Neutrophils % % Lymphocytes % % Monocytes % % Eosinophils % % Basophils % % Neutrophils # (1.6-8.9) K/mcL Lymphocytes # (0.6-4.6) K/mcL Monocytes # (0.0-1.3) K/mcL Eosinophils # (0.0-0.6) K/mcL Basophils # (0.0-0.2) K/mcL Dohle Bodies (Not Present) Immature Plt Fraction (1.1-6.1) % Polychromasia (Not Present) PT (9.4-12.1) Seconds INR APTT (26.0-36.0) Seconds ABG pH (7.32-7.45) pH Units ABG pCO2 (35-45) mmHg ABG pO2 (85-104) mmHg ABG HCO3 (21-27) mEQ/L ABG Total CO2 (20-26) mEq/L ABG O2 Saturation (95-98) % ABG Base Excess (-2.0 to 3.0) mEq/L Blood Gas Modality Inspired O2 % Sodium (136-145) mEq/L Potassium (3.5-4.5) mEq/L Chloride (98-109) mEq/L Carbon Dioxide (19-29) mEq/L BUN (8-26) mg/dL Creatinine (0.72-1.25) mg/dL Est GFR ( Amer) (> 60) Est GFR (Non-Af Amer) (> 60) BUN/Creatinine Ratio (6-26) Glucose (70-99) mg/dL Calculated Osmolality (280-300) Lactic Acid 2.4 H (0.5-2.2) mmol/L Calcium (8.6-10.8) mg/dL Phosphorus (2.3-4.7) mg/dL Magnesium (1.6-2.6) mg/dL Total Bilirubin (0.2-1.2) mg/dL Direct Bilirubin (0.0-0.5) mg/dL Indirect Bilirubin (0.0-1.2) mg/dL AST (5-34) Units/L ALT (0-55) Units/L Alkaline Phosphatase (38-126) Units/L Troponin I 0.05 H* (0-0.03) ng/mL B-Natriuretic Peptide 156 H (0-100) pg/mL Serum Total Protein (6.0-8.3) g/dL Albumin (3.5-5.0) g/dL Globulin (2.4-3.5) g/dL Albumin/Globulin Ratio (1.1-2.2) 04/06/17 04/06/17 Range/Units 17:35 19:23 WBC (4.3-11.1) K/mcL RBC (4.19-5.50) M/mcL Hgb (12.9-16.9) g/dL Hct (37.5-50.1) % MCV (83.0-100.0) fL MCH (28.0-33.3) pg MCHC (31.6-35.5) g/dL RDW (11.5-14.5) % Plt Count (140-400) K/mcL MPV Immature Gran % (0-4) % Seg Neutrophils % % Lymphocytes % % Monocytes % % Eosinophils % % Basophils % % Neutrophils # (1.6-8.9) K/mcL Lymphocytes # (0.6-4.6) K/mcL Monocytes # (0.0-1.3) K/mcL Eosinophils # (0.0-0.6) K/mcL Basophils # (0.0-0.2) K/mcL Dohle Bodies (Not Present) Immature Plt Fraction (1.1-6.1) % Polychromasia (Not Present) PT (9.4-12.1) Seconds INR APTT (26.0-36.0) Seconds ABG pH 7.46 H (7.32-7.45) pH Units ABG pCO2 37 (35-45) mmHg ABG pO2 57 L (85-104) mmHg ABG HCO3 26.3 (21-27) mEQ/L ABG Total CO2 27.4 H (20-26) mEq/L ABG O2 Saturation 91 L (95-98) % ABG Base Excess 2.4 (-2.0 to 3.0) mEq/L Blood Gas Modality NRB Inspired O2 100 % Sodium (136-145) mEq/L Potassium (3.5-4.5) mEq/L Chloride (98-109) mEq/L Carbon Dioxide (19-29) mEq/L BUN (8-26) mg/dL Creatinine (0.72-1.25) mg/dL Est GFR ( Amer) (> 60) Est GFR (Non-Af Amer) (> 60) BUN/Creatinine Ratio (6-26) Glucose (70-99) mg/dL Calculated Osmolality (280-300) Lactic Acid 2.8 H (0.5-2.2) mmol/L Calcium (8.6-10.8) mg/dL Phosphorus (2.3-4.7) mg/dL Magnesium (1.6-2.6) mg/dL Total Bilirubin (0.2-1.2) mg/dL Direct Bilirubin (0.0-0.5) mg/dL Indirect Bilirubin (0.0-1.2) mg/dL AST (5-34) Units/L ALT (0-55) Units/L Alkaline Phosphatase (38-126) Units/L Troponin I (0-0.03) ng/mL B-Natriuretic Peptide (0-100) pg/mL Serum Total Protein (6.0-8.3) g/dL Albumin (3.5-5.0) g/dL Globulin (2.4-3.5) g/dL Albumin/Globulin Ratio (1.1-2.2) - Radiology Data Radiology results reviewed: Yes I reviewed the patient's radiology results. Chest CT 04/06/17 17:19 IMPRESSION: 1. New airspace disease in both lungs, left greater than right, is suspicious for multifocal pneumonia and there are trace pleural effusions. 2. Previously seen left lower lobe consolidation is still present but appears less nodular and more confluent. While this still could be related to pneumonia, developing malignancy is not excluded. Recommend three-month follow-up chest CT. D/ / Jhon Mauro MD / Jhon Mauro MD Interpreting Provider: Jhon Mauro MD - EKG Data EKG #1 EKG attestation: Yes I reviewed and interpreted this EKG. EKG results narrative: I have interpreted this EKG done at 17:10. Patient EKG shows sinus tachycardia at rate of 104. Normal axis. Normal QRS, QT, QTc intervals. No ST elevation, depression. Patient does have Q-waves in lead III which are old. This is mostly unchanged when compared to his EKG done on 03/25/2017. Critical Care Time Critical Care Time: Yes Total Critical Care Time: 35 Attestation: Critical care performed: Time is exclusive of separately billable procedures. Time includes: direct patient care, patient reassessment, coordination of patient care, interpretation of data (laboratory data, radiology data, and respiratory data), review of patient's medical records, medical consultation and documentation of patient care. Procedures included in critical care time: Procedures excluded from critical care time: Attestation Statement - Attestation Attestation: I, Ovi Martinez DO, examined this patient [id number] and my medical decision-making was reviewed with Dr. Samayoa, Resident Physician. I agree with the documented findings, disposition and treatment plan as described except to the extent set forth below. Please see my progress notes for details.
[2017-04-06 17:47] LABS: Hematocrit 29.1 % (37.5-50.1)
[2017-04-06 17:49] LABS: Basophils % 0.2 %; Eosinophils % 0.2 %; Hemoglobin 9.3 g/dL (12.9-16.9); Immature Granulocytes % 5.7 % (0-4); Immature Platelets 7.4 % (1.1-6.1); Lymphocytes # 0.1 K/mcL (0.6-4.6); Lymphocytes % 1.1 %; Mean Corpuscular Hemoglobin 30.3 pg (28.0-33.3); Mean Corpuscular Volume 94.8 fL (83.0-100.0); Monocytes # 0.2 K/mcL (0.0-1.3); Monocytes % 2.1 %; Neutrophils # 7.9 K/mcL (1.6-8.9); Red Blood Count 3.07 M/mcL (4.19-5.50); Red Cell Distribution Width 18.9 % (11.5-14.5); Segmented Neutrophils % 90.7 %
[2017-04-06 17:53] LABS: INR 1.3; Platelet Count 16 K/mcL (140-400); Prothrombin Time 13.9 Seconds (9.4-12.1)
[2017-04-06 17:56] LABS: Activated Partial Thrombo Time 27.3 Seconds (26.0-36.0)
[2017-04-06 18:04] LABS: Albumin/Globulin Ratio 0.8 (1.1-2.2); Bilirubin,Direct 0.7 mg/dL (0.0-0.5); Bilirubin,Indirect 0.4 mg/dL (0.0-1.2); Bilirubin,Total 1.1 mg/dL (0.2-1.2); Calcium 8.7 mg/dL (8.6-10.8); Globulin 2.6 g/dL (2.4-3.5); Magnesium 1.9 mg/dL (1.6-2.6); Phosphorous 3.6 mg/dL (2.3-4.7); Potassium 4.4 mEq/L (3.5-4.5); Total Protein 4.6 g/dL (6.0-8.3)
[2017-04-06 18:12] LABS: Dohle Bodies Present (Not Present); Polychromasia 1+ (Not Present)
[2017-04-06] MEDS ORDERED: Naloxone 0.4 MG/ML INJ IVP PRN (22:52)
[2017-04-06] MEDS ORDERED: *HR* LORazepam 2 MG/ML VIAL IVP PRN (22:56)
[2017-04-06] MEDS ORDERED: Ipratropium/Albuterol Neb 3 ML IH PRN (23:03)
--- NOTE | 2017-04-06 23:03 | Event Note ---
Date of Encounter: 04/06/17 Time of Encounter: 22:57 For this encounter, I have reviewed the ROPE CLEANER documentation, treatment plan, and medical decision making; and I have had face to face time with this patient. Patient appears to be tachypneic, in moderate respiratory distress shortness, currently on nonrebreather, complaining of generalized pain reports mostly in his back and legs. We will get exam reveals bilateral rales and crackles. Skin exam multiple bruises and excoriations CT of the chest reveals bilateral pneumonia progressing infiltrate concerning for progression of lung cancer. Assessment: Overwhelming acute on chronic hypoxic respiratory failure secondary to bilateral pneumonia, sepsis and progression of lung cancer Plan: We will proceed with comfort care only. I will discontinue antibiotics. Discontinue IV fluids. Discontinue needlesticks and morning labs. Comfort Care: Morphine 2 mg IV for pain or respiratory distress, oxygen by Ventimask for respiratory failure, Ativan IV for anxiety. No DVT prophylaxis due to Comfort Care only. I discussed the prognosis and plan of care with his daughter and UNIQUE [place] who understands the grim prognosis and agrees with the plan of care. He is at high risk for morbidity, mortality and complications due to IV controlled substances and de-escalation of care.
[2017-04-06] MEDS: *HR* Morphine 2 MG/ML SYRINGE IVP PRN (23:11)
--- NOTE | 2017-04-06 23:30 | Internal Med History&Physical ---
<Brandon Bowman - Last Filed: 04/07/17 00:01> Date of Encounter: 04/07/17 Time of Encounter: 21:30 Assessment and Plan (1) Sepsis Current visit: Yes Status: Acute Patient presents with sepsis based on his HR of 104, RR of 26, and unresolved bilateral community acquired pneumonia of unknown organism. Patient received IV Zosyn and IV vancomycin while in the ED. IV antibiotics and IV fluids will be discontinued with comfort care measures provided for patient's DNC plan of care. Palliative and Hospice care plans discussed with patient's daughter and POA who is in agreement with his plan of care going forward. Qualifiers: Sepsis type: sepsis due to unspecified organism Qualified Code(s): A41.9 - Sepsis, unspecified organism (2) Acute and chronic respiratory failure with hypoxia Current visit: Yes Status: Acute Patient presents with acute on chronic respiratory failure with hypoxia due to current pneumonia, sepsis, and lung cancer diagnoses. DuoNebs Q4 PRN ordered and supplemental O2 via Venturi face mask provided for patient's respiratory distress and care. (3) Acute metabolic encephalopathy Current visit: Yes Status: Acute Patient presents with acute metabolic encephalopathy related to his current hypoxia from bilateral pneumonia, sepsis, and lung cancer. Will administer O2 via Venturi face mask at high dosing and pain medications to help manage patient 's discomfort. (4) Community acquired pneumonia Current visit: Yes Status: Acute Patient presents with unresolved bilateral community acquired pneumonia. Iv antibiotics were administered in the ED but will be discontinued in keeping with patient's current DNC plan of comfort care measures. Qualifiers: Laterality: left Lung location: lower lobe of lung Qualified Code(s): J18.1 - Lobar pneumonia, unspecified organism (5) Dyspnea Current visit: Yes Status: Acute Patient presents with acute dyspnea related to current unresolved bilateral pneumonia, progression of lung cancer, and sepsis. Patient placed on 50% Venturi face mask for O2 administration. Qualifiers: Dyspnea type: unspecified Qualified Code(s): R06.00 - Dyspnea, unspecified (6) Pain management Current visit: Yes Status: Acute Patient presents with acute pain and discomfort related to current sepsis, pneumonia, and low platelet count. Patient reports pain in his back and legs bilaterally. IV Ativan 2 mg Q2 PRN ordered for anxiety/agitation and IV morphine 2 mg Q2 PRN ordered for management of patient's pain. Goal of care is to make patient as comfort as possible. (7) Goals of care, counseling/discussion Current visit: Yes Status: Acute Palliative and hospice care discussed with patient previously during admission last week and patient stated he was not ready to be followed by Hospice. Patient 's severe change in health status warranted discussion of Palliative and Hospice care with his daughter and POA Heidi who is amenable and agreeable to this plan of care for the patient. Patient's status changed to DNRCC. (8) DVT prophylaxis Current visit: Yes Status: Acute Patient will not be placed on DVT prophylaxis due to DNRCC status and contraindication of invasive needlesticks. Mechanical prophylaxis contraindicated due to patient's multiple bruises and skin excoriations of LEs related to his extremely low platelet count. Internal Medicine - H&P: HPI Chief complaint: Shortness of Breath/Dyspnea Admitted From: Emergency Dept Plans for Post Hospital Care: Home History of present illness: Mr. Ball is a 86 year old male who presents from the ED with chief complaint of shortness of breath and dyspnea. Patient was seen during previous admission last week for pneumonia and acute exacerbation of COPD. Patient presents again with same, but worsening symptoms. Patient was transferred to the ED via squad for acute hypoxia with O2 saturation at 78% on 6L of O2. EMS placed patient on 15L of O2 which increased his saturation to 100%. Patient is suffering from altered mental status related to acute metabolic encephalopathy, hypoxia, progression of lung cancer, and unresolved pneumonia which his family reports as ongoing. Patient is altered and somnolent during initial assessment and all information is taken from his daughter Heidi who is his designated POA. Hospice care was initially discussed with the patient during his previous admission last week and he stated he was not ready to be followed by Hospice. Palliative care measures were discussed with his daughter emir who is amenable and in agreement with the plan to transition the patient to DNRCC measures only. Patient received IV vancomycin and Zosyn while in the ED which will be discontinued as well as IV fluids, follow-up labs, and needlesticks/invasive procedures. We will order DuoNeb treatments Q4 PRN due to patient's severe hypoxia. Diet will be advanced as tolerated. Patient will not receive DVT prophylaxis due to needlesticks and mechanical prophylaxis is contraindicated due to patient's extreme bruising and skin excoriations related to his extremely low platelets. We will provide IV Ativan Q2 PRN for agitation/anxiety and IV morphine Q2 PRN for pain management of patient's reported current back and leg pain. Mr. Ball is at high risk for morbidity, mortality, and ongoing complications due to the current administration of controlled pain medications and comfort care only measures. Patient will be admitted as inpatient status. Past Med Surg Social Fam HX - Past Medical History Source: obtained from family Medical history: arthritis, cancer, COPD, hyperlipidemia, myocardial infarction , RA, renal disease, other Psychiatric history: anxiety, depression - Past Surgical History Surgical History: appendectomy - Social History Smoking Status: Former smoker Smokeless Tobacco Status: No Alcohol use: none Drug use: none Occupational status: previously employed Current living situation: Home, With Family Recent Out of Country Travel Within the Last 8 Weeks: No Exposure or Possible Exposure to Illness During Travel: No - Family History Father Race: Family Member Ethnicity: Non- Living Status: Age at : 67 Cause of : [place] Hx Family Cardiac Disorders: Yes ([place]) Brother Race: Family Member Ethnicity: Non- Living Status: Age at : 86 Cause of : Unknown Sister Race: Family Member Ethnicity: Non- Living Status: Age at : 86 Cause of : Stroke Hx Family Cardiac Disorders: Yes (Multiple strokes) Mother Race: Family Member Ethnicity: Non- Living Status: Age at : 74 Cause of : Old age Hx Family Medical Disorders: No Internal Medicine - H&P: Meds Atenolol [Tenormin] 50 mg PO DAILY 09/22/15 [History] Atorvastatin [Lipitor] 40 mg PO HS 09/22/15 [History] Budesonide/Formoterol 80/4.5 [Symbicort 80/4.5] 2 puff IH BIDR 09/22/15 [ History] Finasteride [Proscar] 5 mg PO DAILY 09/22/15 [History] Folic Acid 1 mg PO DAILY 09/22/15 [History] Losartan Potassium [Cozaar] 50 mg PO DAILY 09/22/15 [History] Calcium Carbonate/Vitamin D3 [Calcium 500-Vit D3 600 Tablet] 1 tab PO DAILY 02/10 [History] Albuterol Neb [Proventil Neb] 2.5 mg IH Q4HR PRN 14 Days 01/08/17 [Rx] predniSONE [PredniSONE] 10 mg PO DAILY #30 tablet 01/08/17 [Rx] Acetaminophen [Tylenol] 650 mg PO Q6H PRN 03/25/17 [History] Doxazosin [Cardura] 4 mg PO 0800 03/25/17 [History] Propylene Glycol/Peg 400 [Systane 0.3-0.4% Eye Drops] 1 drop BOTH EYES BID PRN 03/25/17 [History] Furosemide [Lasix] 40 mg PO DAILY tab 04/05/17 [Rx] Multivitamin-Min/Iron/FA/Vit K [Multi-Day Plus Minerals Tablet] 1 each PO DAILY 04/06/17 [History] Nystatin Cream [Mycostatin Cream] 1 appl TP BID PRN 04/06/17 [History] Oxygen 3 - 6 l NS AD 04/06/17 [History] Sennosides [Senna] 8.6 mg PO BID 04/06/17 [History] Tamsulosin HCl [Flomax] 0.4 mg PO DAILY 04/06/17 [History] Tiotropium [Spiriva] 18 mcg IH 0804/06/17 [History] Allergies celecoxib [From Celebrex] Allergy (Unknown, Verified 03/25/17 09:37) See Comments reaction unknown Latex, Natural Rubber Allergy (Unknown, Verified 03/25/17 09:37) See Comments reaction unknown rofecoxib [From Vioxx] Allergy (Unknown, Verified 03/25/17 09:37) See Comments reaction unknown Sulfa (Sulfonamide Antibiotics) Allergy (Unknown, Verified 03/25/17 09:37) Unknown ROS unobtainable: due to mental status All Systems PM: A 10-system review of systems was performed and is negative for pertinent findings except as documented above in the HPI. - Constitutional Vitals: Temp Pulse Resp BP Pulse Ox 99.0 F 98 20 109/47 95 04/06/17 16:57 04/06/17 21:07 04/06/17 21:58 04/06/17 21:58 04/06/17 21:07 General appearance: Present: cachectic, A&O X 1, severe distress (Respiratory) - Head Head exam: Present: atraumatic, normocephalic - Eye Eye exam: Present: PERRL Pupils: Present: PERRL - ENT ENT exam: Present: mucous membranes dry - Neck Neck exam general surgery: Present: normal inspection - Respiratory Respiratory exam: Present: accessory muscle use, rales, respiratory distress Additional comments: Crackles bilaterally. - Cardiovascular Cardiovascular exam: Present: tachycardia - GI/Abdominal GI/Abdominal exam: Present: diminished bowel sounds, soft - Rectal Rectal exam: Present: deferred - Additional comments: exam deferred. - Extremities Exam Additional comments: Patient has multiple bruises and excoriations of upper and lower extremities related to his current low platelets. - Neurological Exam Neurological exam: Present: altered - Psychiatric Psychiatric exam: Present: anxious - Skin Skin exam: Present: erythema, excoriation, warm Internal Med - H&P Results - Labs CBC & Chem 7: 04/06/17 17:35 04/06/17 17:35 - EKG Data Rate: tachycardia - EKG Data Prior EKG available for review: yes Interpretation IM: suggestive of ischemia EKG comments: 04/06/17 23:37 EKG dated 03/25/17 shows sinus tachycardia with frequent ventricular premature complexes and frequent supraventricular premature complexes. Inferior myocardial infarction, probably old. EKG dated 04/06/17 shows supraventricular tachycardia and probable inferior myocardial infarction of indeterminate age. - Diagnostic Studies CT scan - chest Additional comments: Impressions Chest CT 04/06/17 17:19 IMPRESSION: 1. New airspace disease in both lungs, left greater than right, is suspicious for multifocal pneumonia and there are trace pleural effusions. 2. Previously seen left lower lobe consolidation is still present but appears less nodular and more confluent. While this still could be related to pneumonia, developing malignancy is not excluded. Recommend three-month follow-up chest CT. D/ / Jhon Mauro MD / Jhon Mauro MD Interpreting Provider: Jhon Mauro MD - VTE Reasons for not Prescribing Prophylaxis: Medical contraindication <Wily Greene - Last Filed: 04/07/17 19:50> Date of Encounter: 04/07/17 Internal Medicine - H&P: HPI History of present illness: Mr. Ball is a 86 year old male All Systems PM: A 10-system review of systems was performed and is negative for pertinent findings except as documented above in the HPI. - Constitutional Vitals: Temp Pulse Resp BP Pulse Ox 98.3 F 91 29 97/77 94 04/07/17 19:18 04/07/17 19:18 04/07/17 19:18 04/07/17 19:18 04/07/17 19:18 Internal Med - H&P Results - Labs CBC & Chem 7: 04/06/17 17:35 04/06/17 17:35 Labs: Urine 04/07/17 Range/Units 01:00 Urine Color Dark Yellow (Yellow) Urine Clarity Turbid A (Clear) Urine pH 5.5 (5.0-8.0) pH Units Ur Specific [place] 1.021 (1.010-1.025) Urine Protein 100 H (Neg-Trace) mg/dL Urine Glucose (UA) Normal (Normal) mg/dL - Attending Attestation I independently obtained history and examined this patient and my medical decision-making was reviewed with the nurse practitioner, Brandon Bowman. I agree with the documented findings, disposition and treatment plan as described. My findings are summarized below: Patient appears to be in respiratory distress, tachypneic, tachycardic. Rales are audible on both lung siddiqui. Skin exam reveals multiple abrasions and bruises. Plan: Grim prognosis, overwhelming sepsis in an elderly patient with history of lung cancer, and pneumonia, appears to be near agonal. He is hospice eligible. I discussed the plan of care with the patient's POA. She agrees with comfort measures only. More aggressive care at this point would be medically futile.
[2017-04-07] MEDS: *HR* Morphine 2 MG/ML SYRINGE IVP PRN ×2 (01:12→05:51)
[2017-04-07 01:16] LABS: Bilirubin,Urine Negative (Negative); Blood,Urine Large (Negative); Clarity,Urine Turbid (Clear); Color,Urine Dark Yellow (Yellow); Glucose,Urine (UA) Normal (Normal); Ketones,Urine Negative (Negative); Leukocyte Esterase,Urine Trace (Negative); Nitrite,Urine Negative (Negative); PH,Urine 5.5 pH Units (5.0-8.0); Protein,Urine 100 mg/dL (Neg-Trace); Specific Gravity,Urine 1.021 (1.010-1.025); Urobilinogen,Urine Normal (Normal)
[2017-04-07 01:18] LABS: Squamous Epithelial Cell,Urine Many per lpf (None-Few); WBC,Urine 15-30 per hpf (0-3)
[2017-04-07 01:31] LABS: RBC,Urine TNTC per hpf (0-3)
[2017-04-07 01:32] LABS: Amorphous Sediment,Urine Moderate (Few); Bacteria,Urine Moderate per hpf (None-Few)
--- NOTE | 2017-04-07 10:09 | Internal Med Progress Note ---
Date of Encounter: 04/07/17 Time of Encounter: 10:07 - Assessment and plan (1) Acute and chronic respiratory failure with hypoxia Current Visit: Yes Status: Acute Assessment and plan: Multifactorial in etiology-pneumonia, COPD, lung cancer. Patient may have recurrent postobstructive pneumonia or worsening lung cancer. CT chest without contrast done in the emergency room shows bibasal pneumonia, left greater than right. These findings could be worsening pneumonia or progression of underlying lung cancer. Patient also has acute kidney injury, worsening lactic acidosis with borderline low blood pressure at this time. Patient has been treated with broad-spectrum IV antibiotics and discharged 2 days ago to [facility]. Patient's prognosis at this time remains guarded. I have discussed this with his daughter, who is his power of divorce attorney, at bedside. She is agreeable to continuing comfort care measures as have been initiated by the admitting hospitalist. Continue supportive care with when necessary IV morphine and Ativan and supplemental oxygen at this time. Unfortunately, palliative care services are not available over the weekend. We will consult hospice on Sunday. (2) Lung cancer Current Visit: Yes Status: Chronic Qualifiers: Laterality: right Lung location: upper lobe of lung Qualified Code(s): C34.11 - Malignant neoplasm of upper lobe, right bronchus or lung (3) Community acquired pneumonia Current Visit: Yes Status: Acute Qualifiers: Laterality: left Lung location: lower lobe of lung Qualified Code(s): J18.1 - Lobar pneumonia, unspecified organism (4) ROBERT (acute kidney injury) Current Visit: Yes Status: Acute (5) Rheumatoid arthritis Current Visit: Yes Status: Chronic Qualifiers: Rheumatoid arthritis location: hand Rheumatoid factor presence: with rheumatoid factor Laterality: unspecified laterality Qualified Code(s): M05.749 - Rheumatoid arthritis with rheumatoid factor of unspecified hand without organ or systems involvement (6) Pancytopenia Current Visit: Yes Status: Chronic - Subjective Interval history: Unable to answer questions; noted to be feeling cold and shivering, covered up with blankets; also noted to have significant bruising on left arm and forearm and abdomen; - Constitutional Vitals: Temp Pulse Resp BP Pulse Ox 97.7 F 92 16 81/47 94 04/07/17 07:04/07/17 07:04/07/17 07:17 04/07/17 07:04/07/17 07:17 General appearance: Present: cachectic, A&O X 1, mild distress. Absent: answers questions appropriately - Respiratory Respiratory exam: Present: CTAB (coarse breath sounds B/L). Absent: accessory muscle use, rales, rhonchi, wheezes - Cardiovascular Cardiovascular exam: Present: RRR, +S1, +S2, tachycardia. Absent: diastolic murmur, gallop, rubs, systolic murmur Internal Medicine: Result - Labs CBC & Chem 7: 04/06/17 17:35 04/06/17 17:35 Labs: Urine 04/07/17 Range/Units 01:00 Urine Color Dark Yellow (Yellow) Urine Clarity Turbid A (Clear) Urine pH 5.5 (5.0-8.0) pH Units Ur Specific [place] 1.021 (1.010-1.025) Urine Protein 100 H (Neg-Trace) mg/dL Urine Glucose (UA) Normal (Normal) mg/dL - ABG Interpretation ABG results: ABG ABG pH 7.46 pH Units (7.32-7.45) H 04/06/17 17:35 ABG pCO2 37 mmHg (35-45) 04/06/17 17:35 ABG pO2 57 mmHg (85-104) L 04/06/17 17:35 ABG O2 Saturation 91 % (95-98) L 04/06/17 17:35 PT/INR, D-dimer PT 13.9 Seconds (9.4-12.1) H 04/06/17 17:35 - VTE Reasons for not Prescribing Prophylaxis: Medical contraindication Consult Discharge Plan - Plan Referrals: NONE,PCP [Primary Care Provider] -
[2017-04-08] MEDS: *HR* Morphine 2 MG/ML SYRINGE IVP PRN (11:56)
--- NOTE | 2017-04-08 11:58 | Internal Med Progress Note ---
Date of Encounter: 04/08/17 Time of Encounter: 11:57 - Assessment and plan (1) Acute and chronic respiratory failure with hypoxia Current Visit: Yes Status: Acute Assessment and plan: Multifactorial in etiology-pneumonia, COPD, lung cancer. Not responded to treatment. Patient's prognosis at this time remains guarded. Noted to be tachycardic, tachypneic, hypoxic. Discussion with family with subsequent change to comfort care measures. Continue supportive care with when necessary IV morphine and Ativan and supplemental oxygen at this time. Unfortunately, palliative care services are not available over the weekend. We will consult hospice on Sunday. (2) Lung cancer Current Visit: Yes Status: Chronic Qualifiers: Laterality: right Lung location: upper lobe of lung Qualified Code(s): C34.11 - Malignant neoplasm of upper lobe, right bronchus or lung (3) Community acquired pneumonia Current Visit: Yes Status: Acute Qualifiers: Laterality: left Lung location: lower lobe of lung Qualified Code(s): J18.1 - Lobar pneumonia, unspecified organism (4) ROBERT (acute kidney injury) Current Visit: Yes Status: Acute (5) Rheumatoid arthritis Current Visit: Yes Status: Chronic Qualifiers: Rheumatoid arthritis location: hand Rheumatoid factor presence: with rheumatoid factor Laterality: unspecified laterality Qualified Code(s): M05.749 - Rheumatoid arthritis with rheumatoid factor of unspecified hand without organ or systems involvement (6) Pancytopenia Current Visit: Yes Status: Chronic - Subjective Interval history: Unable to answer questions; noted to be tachypneic and in some distress; pulled off his face mask and noted to be hypoxic; - Constitutional Vitals: Temp Pulse Resp BP Pulse Ox 99.5 F 110 18 72/34 94 04/08/17 07:20 04/08/17 07:20 04/08/17 07:20 04/08/17 07:20 04/08/17 07:20 General appearance: Present: cachectic, A&O X 0, mild distress. Absent: answers questions appropriately - Respiratory Respiratory exam: Present: CTAB (coarse breath sounds B/L anterolaterally), respiratory distress, tachypnea. Absent: accessory muscle use, rales, rhonchi, wheezes - Cardiovascular Cardiovascular exam: Present: RRR, +S1, +S2, tachycardia. Absent: diastolic murmur, gallop, rubs, systolic murmur - GI/Abdominal GI/Abdominal exam: Present: normal bowel sounds, soft, no peritoneal signs. Absent: distended, tenderness Internal Medicine: Result - Labs CBC & Chem 7: 04/06/17 17:35 04/06/17 17:35 - ABG Interpretation ABG results: ABG ABG pH 7.46 pH Units (7.32-7.45) H 04/06/17 17:35 ABG pCO2 37 mmHg (35-45) 04/06/17 17:35 ABG pO2 57 mmHg (85-104) L 04/06/17 17:35 ABG O2 Saturation 91 % (95-98) L 04/06/17 17:35 PT/INR, D-dimer PT 13.9 Seconds (9.4-12.1) H 04/06/17 17:35 - VTE Reasons for not Prescribing Prophylaxis: Medical contraindication Consult Discharge Plan - Plan Referrals: NONE,PCP [Non-Partnered Physician] -
--- NOTE | 2017-04-08 12:34 | Electrocardiograph Report ---
[place] [id number] Test Date: 2017-04-06 Pat Name: Pineda Ball Department: 104 Room: [id number] Gender: Clinical Education Coordinator: DESTINY : 1930 Requested By: Ovi Martinez Order Number: [id number] Reading MD: Regina Lambert Measurements Intervals [place] Rate: 104 P: MD: 0 QRS: -3 QRSD: 83 T: -6 QT: 303 QTc: 364 Interpretive Statements UNCLEAR UNDERLYING RHYTHM LIMITED INTERPRETATION DUE TO ARTIFACT Electronically Signed On 04-08-2017 12:32:36 EDT by Regina Lambert
[2017-04-09] MEDS: *HR* Morphine 2 MG/ML SYRINGE IVP PRN (06:31)
[2017-04-09 07:24] VITALS: BP 60/44
--- NOTE | 2017-04-09 10:50 | Discharge Summary ---
Date of Encounter: 04/09/17 Time of Encounter: 10:30 - Discharge Diagnosis (1) Acute and chronic respiratory failure with hypoxia Priority: Primary Status: Acute (2) Lung cancer Priority: Secondary Status: Chronic Qualifiers: Laterality: right Lung location: upper lobe of lung Qualified Code(s): C34.11 - Malignant neoplasm of upper lobe, right bronchus or lung (3) Community acquired pneumonia Priority: Primary Status: Acute Qualifiers: Laterality: left Lung location: lower lobe of lung Qualified Code(s): J18.1 - Lobar pneumonia, unspecified organism (4) ROBERT (acute kidney injury) Priority: Primary Status: Acute (5) Rheumatoid arthritis Priority: Secondary Status: Chronic Qualifiers: Rheumatoid arthritis location: hand Rheumatoid factor presence: with rheumatoid factor Laterality: unspecified laterality Qualified Code(s): M05.749 - Rheumatoid arthritis with rheumatoid factor of unspecified hand without organ or systems involvement (6) Pancytopenia Priority: Secondary Status: Chronic - Discharge Medications Home Medications: Atenolol [Tenormin] 50 mg PO DAILY 09/22/15 [History] Atorvastatin [Lipitor] 40 mg PO HS 09/22/15 [History] Budesonide/Formoterol 80/4.5 [Symbicort 80/4.5] 2 puff IH BIDR 09/22/15 [ History] Finasteride [Proscar] 5 mg PO DAILY 09/22/15 [History] Folic Acid 1 mg PO DAILY 09/22/15 [History] Losartan Potassium [Cozaar] 50 mg PO DAILY 09/22/15 [History] Calcium Carbonate/Vitamin D3 [Calcium 500-Vit D3 600 Tablet] 1 tab PO DAILY 02/10 [History] Albuterol Neb [Proventil Neb] 2.5 mg IH Q4HR PRN 14 Days 01/08/17 [Rx] predniSONE [PredniSONE] 10 mg PO DAILY #30 tablet 01/08/17 [Rx] Acetaminophen [Tylenol] 650 mg PO Q6H PRN 03/25/17 [History] Doxazosin [Cardura] 4 mg PO 0800 03/25/17 [History] Propylene Glycol/Peg 400 [Systane 0.3-0.4% Eye Drops] 1 drop BOTH EYES BID PRN 03/25/17 [History] Furosemide [Lasix] 40 mg PO DAILY tab 04/05/17 [Rx] Multivitamin-Min/Iron/FA/Vit K [Multi-Day Plus Minerals Tablet] 1 each PO DAILY 04/06/17 [History] Nystatin Cream [Mycostatin Cream] 1 appl TP BID PRN 04/06/17 [History] Oxygen 3 - 6 l NS AD 04/06/17 [History] Sennosides [Senna] 8.6 mg PO BID 04/06/17 [History] Tamsulosin HCl [Flomax] 0.4 mg PO DAILY 04/06/17 [History] Tiotropium [Spiriva] 18 mcg IH 0800 04/06/17 [History] Allergies/Adverse Reactions: Allergies celecoxib [From Celebrex] Allergy (Unknown, Verified 03/25/17 09:37) See Comments reaction unknown Latex, Natural Rubber Allergy (Unknown, Verified 03/25/17 09:37) See Comments reaction unknown rofecoxib [From Vioxx] Allergy (Unknown, Verified 03/25/17 09:37) See Comments reaction unknown Sulfa (Sulfonamide Antibiotics) Allergy (Unknown, Verified 03/25/17 09:37) Unknown Date of admission: 04/06/17 22:52 Primary care physician: Hayley Landry CNP Consults: 04/06/17 23:04 Consult to Respiratory Therapy [CONS] Routine Reason for Consult: Patient has bilateral pneumonia with hypoxia and is DNRCC. Patient placed on 50% Venturi mask Call Completed: No 04/07/17 02:11 Consult to Palliative Care [CONS] Routine Comment: Consulting Provider: Palliative Care Domonique Reason for Consult: Pt's family wants to withdraw all care. Call Completed: No 04/07/17 02:12 Consult to Cmm Inspector [CONS] Routine Reason for SW Consult: Pt's family wants to withdraw care, may need home hospice or ECF set up. Discharging clinician: Winter Marin Anticipated date of discharge: 04/09/17 - Patient Status Disposition: Hospice - Medical Facility Condition: Critical Functional capacity at discharge: bed bound Overall status at discharge: patient is not back to baseline - Discharge Instructions Follow Up With: Hayley Landry CNP [Primary Care Provider] - Additional Instructions: pcp requested Hospital course: Mr. Ball is a 86 year old male with history of right lung cancer, COPD, CHF, recent pneumonia was admitted 2 days after being discharged to extended care facility, with worsening shortness of breath. Patient was noted to have acute on chronic respiratory failure and along with acute kidney injury, lactic acidosis and respiratory distress, likely due to worsening pneumonia and progression of underlying lung cancer. Patient has been doing poorly with declining functional status over the last few months and discussions have been held with palliative care team during his recent admission and patient agreed to DNR/DNI along with his family members. At the time of the current admission, admitting hospitalist discussed his clinical condition and prognosis in detail with his daughter, Heidi, who is one of his POAs who was in agreement with initiating comfort care measures due to futile medical care. Patient was accordingly started on supportive measures with when necessary IV morphine and Ativan along with supplemental oxygen. Palliative care team was not available over the weekend but evaluated patient today and accepted patient to inpatient hospice service. Patient is currently being discharged from hospitalist service. - Time Spent with Patient Total time spent providing and/or coordinating discharge services: Greater than 30 minutes (35 min) - Constitutional Vitals: Temp Pulse Resp BP Pulse Ox 98.6 F 114 26 60/44 89 04/09/17 07:00 04/09/17 07:00 04/09/17 07:00 04/09/17 07:00 04/09/17 07:00 General appearance: Present: cachectic, A&O X 0 (somnolent, no meaningful eye contact), mild distress. Absent: answers questions appropriately - Respiratory Respiratory exam: Present: accessory muscle use, CTAB, respiratory distress, tachypnea. Absent: rales, rhonchi, wheezes - Cardiovascular Cardiovascular exam: Present: RRR, +S1, +S2, tachycardia. Absent: diastolic murmur, gallop, rubs, systolic murmur - VTE Reasons for not Prescribing Prophylaxis: Medical contraindication
== END 2017-04-09 11:15 | disposition hospice, inpatient (51) | DRG 871 ==
LOC: EMEROO 16:54 → 2NENU 16:54
PROVIDERS: ADMIT Internal Medicine; ATTEND Internal Medicine

== ENCOUNTER 2017-04-09 09:35 | Inpatient (IN) ==
[2017-04-09] MEDS ORDERED: Bisacodyl 10 MG RECTAL SUPPOSITORY RC PRN (09:55)
[2017-04-09] MEDS ORDERED: *HR* LORazepam Oral Conc 2 MG/ML PO PRN (09:55)
[2017-04-09] MEDS ORDERED: *HR* LORazepam 2 MG/ML VIAL IVP PRN (09:55)
[2017-04-09] MEDS ORDERED: Ipratropium/Albuterol Neb 3 ML IH PRN (09:55)
[2017-04-09] MEDS ORDERED: Ondansetron 4 MG/2 ML VIAL IVP PRN (09:55)
[2017-04-09] MEDS ORDERED: *HR* Morphine 2 MG/ML SYRINGE IVP PRN (09:55)
[2017-04-09] MEDS ORDERED: Atropine Sulfate 1% 40 DROP/2 ML BOTTLE SL PRN (09:55)
[2017-04-09] MEDS ORDERED: Haloperidol Lactate 5 MG/ML VIAL IVP PRN (09:55)
--- NOTE | 2017-04-09 10:14 | Palliative - Consult Note ---
Date of Encounter: 04/09/17 Time of Encounter: 10:03 - Assessment and Plan (1) Dyspnea Status: Chronic Assessment and plan: Provide comfort care with supplemental oxygen, morphine, and duonebs Qualifiers: Dyspnea type: unspecified Qualified Code(s): R06.00 - Dyspnea, unspecified (2) Anxiety Status: Chronic Assessment and plan: Anxiety induced from SOB and dyspnea. HOB up for comfort Ativan PRN supplemental oxygen (3) Goals of care, counseling/discussion Status: Acute Assessment and plan: Patient terminal diagnosis of lung cancer and end-stage COPD. Called Heidi Meadows patients daughter/POA and discussed transition to inpatient hospice care. Heidi agrees that this was the POC discussed at admission. Notified hospice care and will admit patient today. Heidi is unable to visit the patient today d/t medical appts. but will discuss admission information via phone. Patient is DNRCC - Comfort Care. Palliative-CN HPI - Data of Consult Patient: new to practice Consult date: 04/09/17 Requesting Physician: Pietro Pérez MD Family Provider: Hayley Landry - Consult Narrative Palliative Care/Comfort Measures: Hospice care Reason for consult: Confort Care History of present illness: Mr. Ball is a 86 year old male admitted with sepsis and respiratory distress. The patient was recently discharged to an ECF after a prolonged hospital stay but was readmitted within 2 days of discharge. 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 Patient recently completed Carbo/Taxol in May 2016 and was seen by Oncology as an inpatient. The patient is well known to our palliative care team from his last admission. Upon this consult the patient is resting calmly but doesn't respond to name. Oxygen at 15L, 60% FiO2, BP 60/44, HR 138. The patient and his daughter UNIQUE Meadows agreed to comfort care upon his admission with his terminal illness of lung cancer and end-stage COPD. The patient is being transferred and admitted to an inpatient hospice bed for comfort care. CC: Pietro Pérez MD Past Med Surg Social Fam HX - Past Medical History Source: old records reviewed, obtained from family, nursing notes reviewed Medical history: arthritis, cancer, COPD, hyperlipidemia, myocardial infarction , RA, renal disease, other Psychiatric history: anxiety, depression - Past Surgical History Surgical History: appendectomy - Social History Smoking Status: Former smoker Smokeless Tobacco Status: No Alcohol use: none Drug use: none - Family History Father Family Member Ethnicity: Non- Living Status: Hx Family Cardiac Disorders: Yes (OR) Brother Family Member Ethnicity: Non- Living Status: Hx Family Cardiac Disorders: Yes (OR) Sister Family Member Ethnicity: Non- Living Status: Hx Family Cardiac Disorders: Yes (Multiple strokes) Mother Family Member Ethnicity: Non- Living Status: Medications and Allergies Atenolol [Tenormin] 50 mg PO DAILY 09/22/15 [History] Atorvastatin [Lipitor] 40 mg PO HS 09/22/15 [History] Budesonide/Formoterol 80/4.5 [Symbicort 80/4.5] 2 puff IH BIDR 09/22/15 [ History] Finasteride [Proscar] 5 mg PO DAILY 09/22/15 [History] Folic Acid 1 mg PO DAILY 09/22/15 [History] Losartan Potassium [Cozaar] 50 mg PO DAILY 09/22/15 [History] Calcium Carbonate/Vitamin D3 [Calcium 500-Vit D3 600 Tablet] 1 tab PO DAILY 02/10 [History] Albuterol Neb [Proventil Neb] 2.5 mg IH Q4HR PRN 14 Days 01/08/17 [Rx] predniSONE [PredniSONE] 10 mg PO DAILY #30 tablet 01/08/17 [Rx] Acetaminophen [Tylenol] 650 mg PO Q6H PRN 03/25/17 [History] Doxazosin [Cardura] 4 mg PO 0800 03/25/17 [History] Propylene Glycol/Peg 400 [Systane 0.3-0.4% Eye Drops] 1 drop BOTH EYES BID PRN 03/25/17 [History] Furosemide [Lasix] 40 mg PO DAILY tab 04/05/17 [Rx] Multivitamin-Min/Iron/FA/Vit K [Multi-Day Plus Minerals Tablet] 1 each PO DAILY 04/06/17 [History] Nystatin Cream [Mycostatin Cream] 1 appl TP BID PRN 04/06/17 [History] Oxygen 3 - 6 l NS AD 04/06/17 [History] Sennosides [Senna] 8.6 mg PO BID 04/06/17 [History] Tamsulosin HCl [Flomax] 0.4 mg PO DAILY 04/06/17 [History] Tiotropium [Spiriva] 18 mcg IH 0800 04/06/17 [History] Allergies celecoxib [From Celebrex] Allergy (Unknown, Verified 03/25/17 09:37) See Comments reaction unknown Latex, Natural Rubber Allergy (Unknown, Verified 03/25/17 09:37) See Comments reaction unknown rofecoxib [From Vioxx] Allergy (Unknown, Verified 03/25/17 09:37) See Comments reaction unknown Sulfa (Sulfonamide Antibiotics) Allergy (Unknown, Verified 03/25/17 09:37) Unknown ROS unobtainable: due to mental status (patient unresponsive) - Constitutional Constitutional ROS PAL: fatigue - EENT Eyes: requires corrective lenses - Respiratory Respiratory: dyspnea, dyspnea on exertion - Gastrointestinal Gastrointestinal: constipation - Genitourinary Genitourinary ROS male: urinary frequency - Musculoskeletal Musculoskeletal ROS IM: muscle weakness - Neurological Neurological ROS: weakness Palliative Care-Exam - Constitutional Vitals: BP 60/44, HR 138, Sats 87% General appearance: Present: no acute distress - Head Head Exam: Present: atraumatic, normal inspection, normocephalic - Eye Eye exam: Present: PERRL - ENT ENT exam: Present: mucous membranes moist - Respiratory Respiratory exam: Present: decreased breath sounds - Expanded Respiratory Exam Location: decreased breath sounds: Left, Right, Upper, Lower - Cardiovascular Cardiovascular exam: Present: +S1, +S2, tachycardia - Expanded Cardiovascular Exam Peripheral pulses: 1+: Femoral (L) PM, Femoral (R) PM, Posterior Tibialis (L), Posterior Tibialis (R), Dorsalis Pedis (L) PM, Dorsalis Pedis (R) PM, 2+: Carotid (L) PM, Carotid (R) PM, Radial (L), Radial (R) - GI/Abdominal Exam GI/Abdominal exam: Present: diminished bowel sounds - Rectal Rectal Exam: Present: deferred (low plt count) - Neurological Exam Neurological exam: Present: altered - Expanded Neurological Exam Coma Scale Eye Opening: To Pain Coma Scale Motor Response: Withdraws to Pain Coma Scale Verbal Response: Incomprehensible Coma Scale Total: 8 - Psychiatric Psychiatric exam: Present: flat affect - Skin Skin exam: Present: erythema (bilateral arms) Palliative Quality Palliative Quality: Screen for Code Status: Yes, Screen for Goals of Care: Yes, Screen for Pain: Yes, If Pain Regimen Started, Initiate Bowel Regimen: Yes, Screen for Nausea/Vomitting: Yes Code Status: 04/09/17 09:55 Resuscitation Status: Active [RES] Routine Comment: Resuscitation Status: DNR-Comfort Care
[2017-04-09] MEDS ORDERED: *HR* Morphine 2 MG/ML SYRINGE ONE (11:27)
--- NOTE | 2017-04-09 13:07 | Event Note ---
Date of Encounter: 04/09/17 Time of Encounter: 12:50 Notified by nursing that patient at 1244. Hospice nurse at bedside completing hospice admission. Notified daughter/POA Heidi Meadows that her father had . Heidi requested [facility] home. Heidi reports that she will notify family and brother Dalton. Provided verbal support to Heidi. Post mortem care initiated.
--- NOTE | 2017-04-09 13:17 | Death Note ---
Discharge Sum: Summary - Date and Time Date of admission: 04/09/17 11:17 Date of : 04/09/17 Time of : 12:44 - Summary Details: Patient with terminal lung cancer and end stage COPD. receiving inpatient comfort care in hospice. - Additional Data Confirmation of as documented by pronouncing clinician: no pulse, no respirations, no heart sounds, pupils fixed and dilated Family: contacted (Daughter/POA Heidi Medaows notified by telephone) Additional persons at bedside: other (nurse, hospice nurse) Attending/PCP notified?: Yes Attending physician: Pietro Pérez MD Was code activated?: No Autopsy requested?: No examiner rating clerk notified?: No Organ bank notified?: Yes Advance directives: Yes Hospice patient?: Yes Discharge Sum: Diag - PCOD Probable Cause of : Respiratory arrest Discharge Sum: Prov - Provider Primary care physician: Hayley Landry Admitting clinician: Mali Gage Attending physician on admission: Pietro Pérez Consults: 04/09/17 09:55 Consult to Palliative Care [CONS] Routine Comment: Consulting Provider: Palliative Care Domonique Reason for Consult: Symptom Management Time Notified: 10:00 Call Completed: Yes
--- NOTE | 2017-04-10 10:23 | Event Note ---
Date of Encounter: 04/10/17 Time of Encounter: 10:21 Hospice medical assistant per diem certification of terminal illness: Hospice benefit. Start: 04/09/2017 Hospice benefit. In: +90 days Palliative performance scale: 10-20% History: Patient with history of cancer, also with progressive bilateral pneumonia is causing respiratory failure and sepsis. Patient and family have decided to forego any further aggressive care antibiotics have been discontinued or interested in comfort care only. Patient is in a rapid decline at this time and not expected to last a long period I therefore believe that These findings support a life expectancy of 6 months or less. I attest that I have compose the above narrative based on my review of the patient's medical records, and or on my examination of the patient. Pietro Pérez M.D. Associate medical equipment repairer. [facility]
--- NOTE | 2017-04-10 11:02 | Pallative History & Physical ---
Date of Encounter: 04/10/17 Time of Encounter: 11:01 Internal Medicine - H&P: HPI Admitted From: Intrahospital Transfer Plans for Post Hospital Care: Hospice - Home History of present illness: Mr. Ball is a 86 year old male The patient was not seen by me, he prior to being seen please see the palliative care consultation which will serve as the H&P. Past Med Surg Social Fam HX - Past Medical History Medical history: arthritis, cancer, COPD, hyperlipidemia, myocardial infarction , RA, renal disease, other Psychiatric history: anxiety, depression - Past Surgical History Surgical History: appendectomy - Social History Smoking Status: Former smoker Smokeless Tobacco Status: No Alcohol use: none Drug use: none - Family History Father Family Member Ethnicity: Non- Living Status: Hx Family Cardiac Disorders: Yes (ID) Brother Family Member Ethnicity: Non- Living Status: Hx Family Cardiac Disorders: Yes (ID) Sister Family Member Ethnicity: Non- Living Status: Hx Family Cardiac Disorders: Yes (Multiple strokes) Mother Family Member Ethnicity: Non- Living Status: Internal Medicine - H&P: Meds Atenolol [Tenormin] 50 mg PO DAILY 09/22/15 [History] Atorvastatin [Lipitor] 40 mg PO HS 09/22/15 [History] Budesonide/Formoterol 80/4.5 [Symbicort 80/4.5] 2 puff IH BIDR 09/22/15 [ History] Finasteride [Proscar] 5 mg PO DAILY 09/22/15 [History] Folic Acid 1 mg PO DAILY 09/22/15 [History] Losartan Potassium [Cozaar] 50 mg PO DAILY 09/22/15 [History] Calcium Carbonate/Vitamin D3 [Calcium 500-Vit D3 600 Tablet] 1 tab PO DAILY 02/10 [History] Albuterol Neb [Proventil Neb] 2.5 mg IH Q4HR PRN 14 Days 01/08/17 [Rx] predniSONE [PredniSONE] 10 mg PO DAILY #30 tablet 01/08/17 [Rx] Acetaminophen [Tylenol] 650 mg PO Q6H PRN 03/25/17 [History] Doxazosin [Cardura] 4 mg PO 0800 03/25/17 [History] Propylene Glycol/Peg 400 [Systane 0.3-0.4% Eye Drops] 1 drop BOTH EYES BID PRN 03/25/17 [History] Furosemide [Lasix] 40 mg PO DAILY tab 04/05/17 [Rx] Multivitamin-Min/Iron/FA/Vit K [Multi-Day Plus Minerals Tablet] 1 each PO DAILY 04/06/17 [History] Nystatin Cream [Mycostatin Cream] 1 appl TP BID PRN 04/06/17 [History] Oxygen 3 - 6 l NS AD 04/06/17 [History] Sennosides [Senna] 8.6 mg PO BID 04/06/17 [History] Tamsulosin HCl [Flomax] 0.4 mg PO DAILY 04/06/17 [History] Tiotropium [Spiriva] 18 mcg IH 0800 04/06/17 [History] Allergies celecoxib [From Celebrex] Allergy (Unknown, Verified 03/25/17 09:37) See Comments reaction unknown Latex, Natural Rubber Allergy (Unknown, Verified 03/25/17 09:37) See Comments reaction unknown rofecoxib [From Vioxx] Allergy (Unknown, Verified 03/25/17 09:37) See Comments reaction unknown Sulfa (Sulfonamide Antibiotics) Allergy (Unknown, Verified 03/25/17 09:37) Unknown Palliative Care-Exam - Constitutional Exam: The patient was not seen by me, he prior to being seen please see the palliative care consultation which will serve as the H&P. Palliative Quality Palliative Quality: Screen for Code Status: Yes, Screen for Goals of Care: Yes, Screen for Pain: Yes, If Pain Regimen Started, Initiate Bowel Regimen: Yes, Screen for Nausea/Vomitting: Yes Code Status: 04/09/17 09:55 Resuscitation Status: Active [RES] Routine Comment: Resuscitation Status: DNR-Comfort Care
== END 2017-04-09 12:44 | disposition expired | DRG 871 ==
LOC: 2ANU 11:17
PROVIDERS: ADMIT Family Medicine Hospice and Palliative Medicine; ATTEND Family Medicine Hospice and Palliative Medicine